=== PATIENT | female | born 1995 | race Caucasian/White ===

== ENCOUNTER 2018-05-27 12:04 | Emergency (ER) | payer BC, SELFPAY ==
[2018-05-27 12:35] VITALS: BP 100/70; PULSE 86; RESP 16; TEMP 36.5; O2SAT 98; BMI 21.4
[2018-05-27 13:50] LABS: Add Manual Diff / Slide Review NO; Basophils Absolute Auto 100 /uL (0-100); Basophils Percent Auto 1.2 % (0-2); Eosinophils Absolute Auto 0 /uL (0-450); Eosinophils Percent Auto 0.7 % (2-4); Hematocrit 50.6 % (36-46); Hemoglobin 16.8 g/dL (12.0-16.0); Lymphocytes Absolute Auto 700 /uL (1100-4500); Lymphocytes Percent Auto 12.6 % (25-40); Mean Corpuscular HGB Conc 33.3 % (30-36); Mean Corpuscular Volume 87.2 fL (80-100); Monocytes Absolute Auto 400 /uL (0-900); Monocytes Percent Auto 6.9 % (3-14); Neutrophils Absolute Auto 4100 /uL (1500-7000); Neutrophils Percent Auto 78.6 % (50-75); Platelet Count 160 X10^3/uL (150-400); Red Cell Distribution Width 15.2 % (11.6-14.8); White Blood Cell Count 5.3 X10^3/uL (4.5-11.0)
[2018-05-27 13:52] VITALS: BP 99/67; PULSE 81; RESP 14; O2SAT 98
[2018-05-27] MEDS: SODIUM CHLORIDE 0.9% 1,000 ML 1000 ML IV (13:59)
[2018-05-27 14:00] VITALS: BP 98/78; PULSE 67; RESP 15; O2SAT 99
[2018-05-27 14:08] LABS: BUN Creatinine Ratio 13.3 (6-22); Blood Urea Nitrogen 12 mg/dL (7-17); Calcium 9.7 mg/dL (8.4-10.2); Carbon Dioxide 18 mmol/L (22-32); Chloride 102 mmol/L (98-107); Estimated Glomerular Filt Rate > 60.0 mL/min (>60); Glucose 82 mg/dL (70-100); HEMOLYSIS 23 (0-50); Potassium 3.7 mmol/L (3.4-5.1); Sodium 141 mmol/L (137-145)
[2018-05-27 15:00] VITALS: BP 115/71; PULSE 67; RESP 13; O2SAT 100
[2018-05-27 15:26] LABS: Appearance Urine UA SL CLOUDY; Bilirubin Urine UA 1+ (NEGATIVE); Color Urine UA YELLOW; Glucose Urine UA TRACE g/dL (Negative); Ketones Urine UA 3+ (NEGATIVE); Leukocyte Esterase Urine UA NEGATIVE (NEGATIVE); Nitrite Urine UA NEGATIVE (Negative); Occult Blood Urine UA 3+ (Negative); Protein Urine UA 1+ (Negative); Specific Gravity Urine UA 1.025 (1.000-1.035)
[2018-05-27 15:30] VITALS: BP 108/80; PULSE 74; RESP 12; O2SAT 99
[2018-05-27 15:48] LABS: Ictotest Urine Negative (Negative)
[2018-05-27 15:49] LABS: Bacteria Urine Many (>30); Calcium Oxalate Crystals Urine Few; Culture Indicated Urine Cult Not Indicated; Mucus Urine 2+ (Negative); RBC Urine 1-5/HPF (0-5/HPF); Squamous Epithelial Cell Urine 5-10 /HPF; WBC Urine 1-5/HPF (0-5/HPF)
[2018-05-27 16:00] VITALS: BP 109/71; PULSE 83; RESP 15; O2SAT 99
--- NOTE | 2018-06-01 04:43 | ED.DIZZY ---
HPI - Dizziness General Chief Complaint: Syncope Stated Complaint: nausea,passed out Time Seen by Provider: 05/27/18 12:53 Source: patient and family Mode of arrival: ambulatory Limitations: no limitations History of Present Illness HPI Narrative: Patient presents emergency department complaining of fatigue and dizziness for the last few days. Patient has been having ongoing issues with abdominal pain and nausea in relation to eating, and has come to the point where she only eats a couple spoonfuls of peanut butter every day. Patient states that it is usually foods with fat in them that make her feel unwell, but that somehow peanut butter seems to be the only thing she can tolerate. Patient has been seen by GI specialist and has had endoscopies done which have been negative. She is scheduled for an ultrasound of the right upper quadrant in a few days. Patient denies any abdominal pain right at the moment. She denies any vomiting or diarrhea. No chest pain or shortness of breath. No recent illness of any other kind. No fevers. No dysuria. No back pain. Patient has not actually fainted, but has sometimes felt faint when she stands up. Patient does not have a history of eating disorder, though her stepfather does tell me privately that the patient has been under lot of stress, and he is concerned about how this is impacting her eating. He states that the patient has been resistant to the interventions of her mother and himself in terms of trying to get her to eat more food. Related Data Allergies Allergy/AdvReac Type Severity Reaction Status Date / Time No Known Drug Allergies Allergy Verified 05/27/18 12:42 Review of Systems Constitutional Reports anorexia, Denies chills, Reports fatigue, Denies fever(s), Denies lethargy, Reports poor appetite, Denies weakness and Reports weight loss Eyes Denies change in vision, Denies eye discharge, Denies irritation and Denies loss of vision ENT Ears, Nose, Mouth, and Throat: Denies change in voice, Denies neck pain and Denies sore throat Cardiovascular Denies chest pain, Denies irregular heart rhythm, Reports lightheadedness, Denies palpitations, Denies dyspnea, Denies dyspnea on exertion and Denies orthopnea Respiratory Denies cough, Denies dyspnea, Denies dyspnea on exertion and Denies wheezing Gastrointestinal Gastrointestinal: Denies abdominal pain, Denies change in bowel habits, Denies diarrhea, Denies nausea and Denies vomiting Genitourinary Denies hematuria, Denies flank pain, Denies urinary incontinence and Denies urinary urgency Musculoskeletal Denies neck pain Integumentary/Breasts Denies pruritus, Denies erythema, Denies rash and Denies wounds Neurologic Denies confusion, Denies loss of vision and Denies weakness Psychiatric Denies anxiety, Denies confusion, Denies depression, Denies homicidal ideation and Denies suicidal ideation Endocrine Reports fatigue and Denies palpitations Hematologic/Lymphatic Denies easy bruising Allergic/Immunologic Denies wheezing [facility] Medical History Healthy adult (Acute) Surgical History No pertinent past surgical history (Acute) Social History Smoking Status: Never smoker Social History Smoking Status: Never smoker Exam Initial Vital Signs Initial Vital Signs: Vital Signs Temperature 97.7 F 05/27/18 12:35 Pulse Rate 86 05/27/18 12:35 Respiratory Rate 16 05/27/18 12:35 Blood Pressure 100/70 05/27/18 12:35 Pulse Oximetry 98 05/27/18 12:35 Const General: cooperative and well developed Nutritional Appearance: well nourished Orientation: alert, awake, oriented x3 and not confused [facility] Head: normocephalic and atraumatic Ears: external ears normal Nose: external nose normal and No nasal discharge Face and sinus: face symmetric and No dry mucous membranes Mouth: oral mucosae normal and moist mucous membranes Teeth and gingiva: dentition normal Eyes General: appearance normal, both eyes and all related structures Eyelids: eyelids normal Conjunctivae: conjunctivae normal Sclera: sclerae normal Pupils: PERRL EOM: EOM intact bilaterally Neck Neck: normal visual inspection, trachea midline, No lymphadenopathy, No midline deformity and No JVD Lymphatic: No lymphedema Chest Chest: normal inspection of the chest Resp Effort & Inspection: normal respiratory effort, able to speak in complete sentences, no respiratory distress and no use of accessory muscles Auscultation: clear to auscultation bilaterally, no rales, no rhonchi and no wheezes Cardio Rate: regular rate Rhythm: regular rhythm Heart Sounds: no click, no gallops, no murmurs and no rubs Pulses: normal peripheral pulses GI Inspection: non-distended Palpation: soft, no hepatosplenomegaly, No guarding, No pulsatile mass and No tender Auscultation: normal bowel sounds Back/Spine/Pelvis Back: No CVA tenderness Cervical Spine: cervical ROM normal and No pain with cervical ROM Thoracic/Lumbar Spine: thoracic and lumbar spine normal to inspection Skin General: no rashes or lesions noted, No jaundice and No petechiae Neuro General: alert, oriented x3, gait normal and no focal motor deficits Speech: speech normal Extrem General: full ROM, no clubbing, cyanosis or edema, no pedal edema and no calf tenderness Psych Appearance: well kempt Mental Status: mental status grossly normal Attitude: cooperative Thought Content: normal and suicidality Judgment: judgment good Course Course Narrative: Patient was worked up with labs, which were unremarkable. I did not find indication to call the artificial breeding technician in to do her right upper quadrant ultrasound emergently, as the patient was not complaining of pain and was not tender, and did not have elevated LFTs. I discussed with the patient that additionally, the tolerance of the very high fat peanut butter does not go along with an intolerance of fatty food secondary to a potential cholelithiasis. The patient certainly should continue her plans to have the ultrasound done in a few days, but it does not need to be emergently done today. I have expressed my concern to the patient and her family that the patient is exhibiting signs of an eating disorder, and that I feel this is an issue that should be addressed alongside the abdominal complaints. I have given the family and patient resources for follow-up for this, in particular, the [facility] in [place], as well as another eating disorder center in [place] that deals specifically with restrictive eating, which goes along with patient's symptoms. I have also given them the National Eating Disorder hotline. Stepfather has spoken to me privately that he believes the patient will be willing to follow up. I have discussed with the patient the importance of eating a more well rounded diet. The patient really has not tried fruits and vegetables, and expresses distaste the idea of eating them. However, I have discussed with her that it is important to at least eat some fruits and vegetables that she find more palatable so that she gets more nutritional input into her diet. Orders Ordered: Discontinued Medications Sodium Chloride (Normal Saline 0.9%) 1,000 mls @ 1,000 mls/hr IV BOLUS ONE Stop: 05/27/18 14:20 Last Infusion: 05/27/18 15:56 Dose: 0 mls/hr Admin: 05/27/18 13:59 Dose: 1,000 mls/hr MDM - Dizziness Medical Records Attestation: I reviewed the patient's medical records. Lab Data Attestation: I reviewed the patient's lab results. Result diagrams: 05/27/18 13:40 05/27/18 13:40 Lab Results 05/27/18 05/27/18 05/27/18 Range/Units 13:40 13:40 15:20 WBC 5.3 (4.5-11.0) X10^3/uL RBC 5.80 H (4.0-5.2) X10^6/uL Hgb 16.8 H (12.0-16.0) g/dL Hct 50.6 H (36-46) % MCV 87.2 (80-100) fL MCH 29.0 (26-34) PG MCHC 33.3 (30-36) % RDW 15.2 H (11.6-14.8) % Plt Count 160 (150-400) X10^3/uL Neut % (Auto) 78.6 H (50-75) % Lymph % (Auto) 12.6 L (25-40) % [place] % (Auto) 6.9 (3-14) % Eos % (Auto) 0.7 L (2-4) % Baso % (Auto) 1.2 (0-2) % Neut # (Auto) 4100 (0541-8538) /uL Lymph # (Auto) 700 L (9281-0269) /uL [place] # (Auto) 400 (0-900) /uL Eos # (Auto) 0 (0-450) /uL Baso # (Auto) 100 (0-100) /uL Sodium 141 (137-145) mmol/L Potassium 3.7 (3.4-5.1) mmol/L Chloride 102 (98-107) mmol/L Carbon Dioxide 18 L (22-32) mmol/L BUN 12 (7-17) mg/dL Creatinine 0.90 (0.52-1.04) mg/dL Estimated GFR > 60.0 (>60) mL/min BUN/Creatinine Ratio 13.3 (6-22) Glucose 82 (70-100) mg/dL Calcium 9.7 (8.4-10.2) mg/dL Urine Color Yellow Urine Appearance Sl cloudy Urine pH 6.0 (4.5-8.0) Ur Specific [place] 1.025 (1.000-1.035) Urine Protein 1+ H (Negative) Urine Glucose (UA) Trace H (Negative) g/dL Urine Ketones 3+ H (NEGATIVE) Urine Occult Blood 3+ H (Negative) Urine Nitrate Negative (Negative) Urine Bilirubin 1+ H (NEGATIVE) Urine Ictotest Negative (Negative) Urine Urobilinogen 1.0 (0.2) E.U./dL Ur Leukocyte Esterase Negative (NEGATIVE) Urine RBC 1-5/hpf (0-5/HPF) Urine WBC 1-5/hpf (0-5/HPF) Ur Squamous Epith Cells 5-10 /hpf H Calcium Oxalate Crystal Few H (None) Urine Bacteria Many (>30) H (None) Urine Mucus 2+ H (Negative) Ur Culture Indicated? Cult not indicated Point of Care Testing Test Results Negative Discharge Plan Departure Patient Disposition: Home Clinical Impression: Avoidant-restrictive food intake disorder (ARFID) Abdominal pain Qualifiers: Abdominal location: right upper quadrant Qualified Code(s): R10.11 - Right upper quadrant pain Discharge Date/Time: 05/27/18 16:13 Interventions: ED Discharge Assessment Last Done: 05/27/18 16:10 Instructions: A Family's Guide to Tackling Eating Disorders, Eating Disorders (Alternative Therapy), DI for Abdominal Pain-Adult Activity Restrictions/Additional Instructions: All of your labs look good. Here are a few options for follow-up on the eating restrictions and potential stress-related effects on your digestive system: [facility] ([place]) [facility] ([place]) National Eating Disorder Hotline Referrals: Liya Doherty [Primary Care Provider] -
--- NOTE | 2018-06-01 04:52 | ED_ITS ---
HPI - Dizziness General Chief Complaint: Syncope Stated Complaint: nausea,passed out Time Seen by Provider: 05/27/18 12:53 Source: patient and family Mode of arrival: ambulatory Limitations: no limitations History of Present Illness HPI Narrative: Patient presents emergency department complaining of fatigue and dizziness for the last few days. Patient has been having ongoing issues with abdominal pain and nausea in relation to eating, and has come to the point where she only eats a couple spoonfuls of peanut butter every day. Patient states that it is usually foods with fat in them that make her feel unwell, but that somehow peanut butter seems to be the only thing she can tolerate. Patient has been seen by GI specialist and has had endoscopies done which have been negative. She is scheduled for an ultrasound of the right upper quadrant in a few days. Patient denies any abdominal pain right at the moment. She denies any vomiting or diarrhea. No chest pain or shortness of breath. No recent illness of any other kind. No fevers. No dysuria. No back pain. Patient has not actually fainted, but has sometimes felt faint when she stands up. Patient does not have a history of eating disorder, though her stepfather does tell me privately that the patient has been under lot of stress, and he is concerned about how this is impacting her eating. He states that the patient has been resistant to the interventions of her mother and himself in terms of trying to get her to eat more food. Related Data Allergies Allergy/AdvReac Type Severity Reaction Status Date / Time No Known Drug Allergies Allergy Verified 05/27/18 12:42 Review of Systems Constitutional Reports anorexia, Denies chills, Reports fatigue, Denies fever(s), Denies lethargy, Reports poor appetite, Denies weakness and Reports weight loss Eyes Denies change in vision, Denies eye discharge, Denies irritation and Denies loss of vision ENT Ears, Nose, Mouth, and Throat: Denies change in voice, Denies neck pain and Denies sore throat Cardiovascular Denies chest pain, Denies irregular heart rhythm, Reports lightheadedness, Denies palpitations, Denies dyspnea, Denies dyspnea on exertion and Denies orthopnea Respiratory Denies cough, Denies dyspnea, Denies dyspnea on exertion and Denies wheezing Gastrointestinal Gastrointestinal: Denies abdominal pain, Denies change in bowel habits, Denies diarrhea, Denies nausea and Denies vomiting Genitourinary Denies hematuria, Denies flank pain, Denies urinary incontinence and Denies urinary urgency Musculoskeletal Denies neck pain Integumentary/Breasts Denies pruritus, Denies erythema, Denies rash and Denies wounds Neurologic Denies confusion, Denies loss of vision and Denies weakness Psychiatric Denies anxiety, Denies confusion, Denies depression, Denies homicidal ideation and Denies suicidal ideation Endocrine Reports fatigue and Denies palpitations Hematologic/Lymphatic Denies easy bruising Allergic/Immunologic Denies wheezing [facility] Medical History Healthy adult (Acute) Surgical History No pertinent past surgical history (Acute) Social History Smoking Status: Never smoker Social History Smoking Status: Never smoker Exam Initial Vital Signs Initial Vital Signs: Vital Signs Temperature 97.7 F 05/27/18 12:35 Pulse Rate 86 05/27/18 12:35 Respiratory Rate 16 05/27/18 12:35 Blood Pressure 100/70 05/27/18 12:35 Pulse Oximetry 98 05/27/18 12:35 Const General: cooperative and well developed Nutritional Appearance: well nourished Orientation: alert, awake, oriented x3 and not confused [facility] Head: normocephalic and atraumatic Ears: external ears normal Nose: external nose normal and No nasal discharge Face and sinus: face symmetric and No dry mucous membranes Mouth: oral mucosae normal and moist mucous membranes Teeth and gingiva: dentition normal Eyes General: appearance normal, both eyes and all related structures Eyelids: eyelids normal Conjunctivae: conjunctivae normal Sclera: sclerae normal Pupils: PERRL EOM: EOM intact bilaterally Neck Neck: normal visual inspection, trachea midline, No lymphadenopathy, No midline deformity and No JVD Lymphatic: No lymphedema Chest Chest: normal inspection of the chest Resp Effort & Inspection: normal respiratory effort, able to speak in complete sentences, no respiratory distress and no use of accessory muscles Auscultation: clear to auscultation bilaterally, no rales, no rhonchi and no wheezes Cardio Rate: regular rate Rhythm: regular rhythm Heart Sounds: no click, no gallops, no murmurs and no rubs Pulses: normal peripheral pulses GI Inspection: non-distended Palpation: soft, no hepatosplenomegaly, No guarding, No pulsatile mass and No tender Auscultation: normal bowel sounds Back/Spine/Pelvis Back: No CVA tenderness Cervical Spine: cervical ROM normal and No pain with cervical ROM Thoracic/Lumbar Spine: thoracic and lumbar spine normal to inspection Skin General: no rashes or lesions noted, No jaundice and No petechiae Neuro General: alert, oriented x3, gait normal and no focal motor deficits Speech: speech normal Extrem General: full ROM, no clubbing, cyanosis or edema, no pedal edema and no calf tenderness Psych Appearance: well kempt Mental Status: mental status grossly normal Attitude: cooperative Thought Content: normal and suicidality Judgment: judgment good Course Course Narrative: Patient was worked up with labs, which were unremarkable. I did not find indication to call the injection maintenance technician in to do her right upper quadrant ultrasound emergently, as the patient was not complaining of pain and was not tender, and did not have elevated LFTs. I discussed with the patient that additionally, the tolerance of the very high fat peanut butter does not go along with an intolerance of fatty food secondary to a potential cholelithiasis. The patient certainly should continue her plans to have the ultrasound done in a few days, but it does not need to be emergently done today. I have expressed my concern to the patient and her family that the patient is exhibiting signs of an eating disorder, and that I feel this is an issue that should be addressed alongside the abdominal complaints. I have given the family and patient resources for follow-up for this, in particular, the [facility] in [place], as well as another eating disorder center in [place] that deals specifically with restrictive eating, which goes along with patient's symptoms. I have also given them the National Eating Disorder hotline. Stepfather has spoken to me privately that he believes the patient will be willing to follow up. I have discussed with the patient the importance of eating a more well rounded diet. The patient really has not tried fruits and vegetables, and expresses distaste the idea of eating them. However, I have discussed with her that it is important to at least eat some fruits and vegetables that she find more palatable so that she gets more nutritional input into her diet. Orders Ordered: Discontinued Medications Sodium Chloride (Normal Saline 0.9%) 1,000 mls @ 1,000 mls/hr IV BOLUS ONE Stop: 05/27/18 14:20 Last Infusion: 05/27/18 15:56 Dose: 0 mls/hr Admin: 05/27/18 13:59 Dose: 1,000 mls/hr MDM - Dizziness Medical Records Attestation: I reviewed the patient's medical records. Lab Data Attestation: I reviewed the patient's lab results. Result diagrams: 05/27/18 13:40 05/27/18 13:40 Lab Results 05/27/18 05/27/18 05/27/18 Range/Units 13:40 13:40 15:20 WBC 5.3 (4.5-11.0) X10^3/uL RBC 5.80 H (4.0-5.2) X10^6/uL Hgb 16.8 H (12.0-16.0) g/dL Hct 50.6 H (36-46) % MCV 87.2 (80-100) fL MCH 29.0 (26-34) PG MCHC 33.3 (30-36) % RDW 15.2 H (11.6-14.8) % Plt Count 160 (150-400) X10^3/uL Neut % (Auto) 78.6 H (50-75) % Lymph % (Auto) 12.6 L (25-40) % [place] % (Auto) 6.9 (3-14) % Eos % (Auto) 0.7 L (2-4) % Baso % (Auto) 1.2 (0-2) % Neut # (Auto) 4100 (1359-2777) /uL Lymph # (Auto) 700 L (4675-0703) /uL [place] # (Auto) 400 (0-900) /uL Eos # (Auto) 0 (0-450) /uL Baso # (Auto) 100 (0-100) /uL Sodium 141 (137-145) mmol/L Potassium 3.7 (3.4-5.1) mmol/L Chloride 102 (98-107) mmol/L Carbon Dioxide 18 L (22-32) mmol/L BUN 12 (7-17) mg/dL Creatinine 0.90 (0.52-1.04) mg/dL Estimated GFR > 60.0 (>60) mL/min BUN/Creatinine Ratio 13.3 (6-22) Glucose 82 (70-100) mg/dL Calcium 9.7 (8.4-10.2) mg/dL Urine Color Yellow Urine Appearance Sl cloudy Urine pH 6.0 (4.5-8.0) Ur Specific [place] 1.025 (1.000-1.035) Urine Protein 1+ H (Negative) Urine Glucose (UA) Trace H (Negative) g/dL Urine Ketones 3+ H (NEGATIVE) Urine Occult Blood 3+ H (Negative) Urine Nitrate Negative (Negative) Urine Bilirubin 1+ H (NEGATIVE) Urine Ictotest Negative (Negative) Urine Urobilinogen 1.0 (0.2) E.U./dL Ur Leukocyte Esterase Negative (NEGATIVE) Urine RBC 1-5/hpf (0-5/HPF) Urine WBC 1-5/hpf (0-5/HPF) Ur Squamous Epith Cells 5-10 /hpf H Calcium Oxalate Crystal Few H (None) Urine Bacteria Many (>30) H (None) Urine Mucus 2+ H (Negative) Ur Culture Indicated? Cult not indicated Point of Care Testing Test Results Negative Discharge Plan Departure Patient Disposition: Home Clinical Impression: Avoidant-restrictive food intake disorder (ARFID) Abdominal pain Qualifiers: Abdominal location: right upper quadrant Qualified Code(s): R10.11 - Right upper quadrant pain Discharge Date/Time: 05/27/18 16:13 Interventions: ED Discharge Assessment Last Done: 05/27/18 16:10 Instructions: A Family's Guide to Tackling Eating Disorders, Eating Disorders (Alternative Therapy), DI for Abdominal Pain-Adult Activity Restrictions/Additional Instructions: All of your labs look good. Here are a few options for follow-up on the eating restrictions and potential stress-related effects on your digestive system: [facility] ([place]) [facility] ([place]) National Eating Disorder Hotline Referrals: Liya Doherty [Primary Care Provider] -
== END 2018-05-27 16:13 | disposition home or self-care (01) ==
PROVIDERS: Emergency Provider Emergency Medicine; PCP Physician Assistant Medical
DX: R10.11 Right upper quadrant pain (principal); F50.82 Avoidant/restrictive food intake disorder
CPT/HCPCS: 36591; 80048; 81001; 81025; 85025; 93005; 96360; 96361; 99283

== ENCOUNTER → 2019-07-04 12:11 | Outpatient (CLI) | payer BC, SELFPAY ==
--- NOTE | 2019-07-04 12:13 | DI.US.S_ITS ---
PROCEDURE: US OB <= 14 WEEKS FETUS INDICATIONS: INITAL ULTRASOUND FOR DATING AND VIABILITY OUTSIDE/PRIOR DATING DATA: Last menstrual period (LMP): 04/18/19. LMP-based estimated date of delivery (SANDI): 01/23/20. First dating scan (date and location): 07/04/19. Estimated date of delivery (SANDI) from first dating scan: 02/20/20. TECHNIQUE: Real-time scanning was performed of the fetus and maternal pelvic organs, with image documentation. COMPARISON: None. FINDINGS: Embryo: A single live intrauterine is seen. The measured heart rate is 145 beats per minute. The crown-rump length measures 0.9 cm, corresponding to an estimated gestational age of 7 weeks 0 days. It is too early for detailed anatomic assessment. By visual inspection, the amount of amniotic fluid is within normal limits. No significant findings of subchorionic/perigestational hemorrhage are seen. Measurement variability in dating: +/- 4 weeks by LMP, +/- 7 days by mean sac diameter (use before 6 weeks gestation if crown-rump length not able to be measured), +/- 5 days by crown-rump length (up to 8 weeks 6 days gestation), +/- 7 days by crown-rump length (up to 13 weeks 6 days gestation). Maternal organs: Ovaries are not seen. Limited images through the kidneys demonstrate no hydronephrosis. IMPRESSION: A single live intrauterine is seen. There is a 1 month discrepancy between the estimated gestational age based on these images and estimated gestational age based upon the given date of the last menstrual period. Please correlate with precise clinical dating. Dictated by: Virgil Jones M.D. on 07/04/2019 at 13:09 Approved by: Virgil Jones M.D. on 07/04/2019 at 13:12
== END ==
PROVIDERS: PCP Physician Assistant Medical; Referring Provider Family Medicine; Visit Provider Family Medicine
DX: Z34.01 Encounter for supervision of normal first pregnancy, first trimester (principal); Z3A.01 Less than 8 weeks gestation of pregnancy
CPT/HCPCS: 76801

== ENCOUNTER → 2019-07-09 10:41 | Outpatient (CLI) | payer BC, SELFPAY ==
[2019-07-09 11:55] LABS: Add Manual Diff / Slide Review NO; Basophils Absolute Auto 0 /uL (0-100); Basophils Percent Auto 0.6 % (0-2); Eosinophils Absolute Auto 0 /uL (0-450); Eosinophils Percent Auto 0.6 % (2-4); Hematocrit 42.4 % (36-46); Hemoglobin 14.4 g/dL (12.0-16.0); Lymphocytes Absolute Auto 1300 /uL (1100-4500); Lymphocytes Percent Auto 18.3 % (25-40); Mean Corpuscular Hemoglobin 30.1 PG (26-34); Mean Corpuscular Volume 88.5 fL (80-100); Monocytes Absolute Auto 500 /uL (0-900); Monocytes Percent Auto 7.4 % (3-14); Neutrophils Absolute Auto 5200 /uL (1500-7000); Neutrophils Percent Auto 73.1 % (50-75); Platelet Count 202 X10^3/uL (150-400); Red Blood Cell Count 4.79 X10^6/uL (4.0-5.2); Red Cell Distribution Width 13.9 % (11.6-14.8); White Blood Cell Count 7.2 X10^3/uL (4.5-11.0)
[2019-07-09 12:08] LABS: Appearance Urine UA CLEAR; Bilirubin Urine UA NEGATIVE (NEGATIVE); Color Urine UA YELLOW; Glucose Urine UA NEGATIVE (Negative); Ketones Urine UA NEGATIVE (NEGATIVE); Leukocyte Esterase Urine UA NEGATIVE (NEGATIVE); Nitrite Urine UA NEGATIVE (Negative); Occult Blood Urine UA NEGATIVE (Negative); Protein Urine UA NEGATIVE (Negative); Urobilinogen Urine UA 0.2 E.U./dL (0.2)
[2019-07-09 12:16] LABS: pH Urine UA 6.5 (4.5-8.0)
[2019-07-09 14:13] LABS: Hepatitis B Surface Antigen NEGATIVE s/c (NEGATIVE); Rubella Antibody IgG 9.5 IU/mL (>15)
[2019-07-09 14:30] LABS: HIV 1 & 2 Ab/Ag 4th Gen Combo NEGATIVE (NEGATIVE); Hep C Virus Ab w/Reflex Quant NEGATIVE s/c (NEGATIVE)
[2019-07-10 03:36] LABS: RPR Screen Non Reactive (Non Reactive)
[2019-07-10 10:26] LABS: Varicella IgG Antibody 225 index (Immune >165)
== END ==
PROVIDERS: PCP Physician Assistant Medical; Referring Provider Family Medicine; Visit Provider Family Medicine
DX: Z34.01 Encounter for supervision of normal first pregnancy, first trimester (principal)
CPT/HCPCS: 36415; 80055; 81003; 86787; 86803; 86850; 86900; 86901; 87086; 87389

== ENCOUNTER → 2019-08-05 11:08 | Outpatient (CLI) | payer BC, SELFPAY ==
[2019-08-05 14:59] LABS: Urine N gonorrhoeae NOT DETECTED
[2019-08-05 15:28] LABS: Urine Chlamydia NOT DETECTED
== END ==
PROVIDERS: PCP Physician Assistant Medical; Visit Provider Family Medicine
DX: Z34.90 Encounter for supervision of normal pregnancy, unspecified, unspecified trimester (principal); Z11.3 Encounter for screening for infections with a predominantly sexual mode of transmission; Z11.8 Encounter for screening for other infectious and parasitic diseases
CPT/HCPCS: 87491; 87591

== ENCOUNTER → 2019-10-03 14:07 | Outpatient (CLI) | payer BC, SELFPAY ==
--- NOTE | 2019-10-03 14:07 | DI.US.S_ITS ---
PROCEDURE: US OB >= 14 WEEKS FETUS INDICATIONS: ANATOMY OUTSIDE/PRIOR DATING DATA: Last menstrual period (LMP): 04/18/19. LMP-based estimated date of delivery (SANDI): 01/23/20 . First dating scan (date and location): 07/04/19 . Estimated date of delivery (SANDI) from first dating scan: 02/20/20 . TECHNIQUE: Real-time scanning was performed of the fetus, with image documentation and biometric measurements. Endovaginal scanning: Not needed COMPARISON: Prior OB ultrasound studies 07/04/19. FINDINGS: General: A single living intrauterine gestation is present. Presentation: Oblique, mobile. Placenta: Placental position is anterior , with marginal previa. Amniotic fluid index: 17.0 cm, normal range is 5-24 cm. heart rate: 155 beats per minute. Maternal cervical canal: 4.9 cm long. Normal lower limit is 2.5 cm. biometrics: Biparietal diameter: 4.9 cm, 20 weeks 6 days Head circumference: 18.3 cm, 20 weeks 5 days Abdominal circumference: 15.8 cm, 20 weeks 6 days Femur length: 3.5 cm, 21 weeks 1 day Estimated gestational age from initial scan: 20 weeks 0 days Composite gestational age from present scan: 20 weeks 6 days Estimated weight and percentile: 389 g, 90 second percentile Measurement variability for biometric dating: +/- 7 days from 14 weeks to 15 weeks 6 days gestation, +/- 10 days from 16 weeks to 21 weeks 6 days gestation, +/- 2 weeks from 22 weeks to 27 weeks 6 days gestation, +/- 3 weeks for 28 weeks gestation or later. weight reference: 4500 g or EFW >90/95% is considered macrosomia or large for gestational age. EFW <10% is small for gestational age. EFW 5% or less is considered intra-uterine growth restriction. Anatomic survey: Neuro: Ventricles are non-dilated at less than 10 mm. Cisterna magna is normal at 3-11 mm. Cerebellum is normal in size and morphology. Nuchal skin fold: Normal at less than 6 mm between 14-21 weeks gestational age. Face: Nose and lips, facial profile are normal. Spine: No evidence for spina bifida. Heart: 4-chambered heart is present, with normal ventricular outflow tracts. Diaphragm: Diaphragm is intact. Stomach: Left-sided stomach is present. Kidneys: No hydronephrosis. Normal is less than 5 mm in 2nd trimester, less than 7 mm in 3rd trimester. Cord: 3-vessel cord has orthotopic insertion. Bladder: Normal in size. Extremities: All 4 extremities identified. IMPRESSION: Single living intrauterine gestation, note is made of marginal previa anteriorly, no anomaly found. Dictated by: Sotero Nesbitt M.D. on 10/03/2019 at 15:29 Approved by: Sotero Nesbitt M.D. on 10/03/2019 at 15:37
== END ==
PROVIDERS: PCP Physician Assistant Medical; Referring Provider Physician Assistant Medical; Visit Provider Family Medicine
DX: Z36.89 Encounter for other specified antenatal screening (principal); Z3A.20 20 weeks gestation of pregnancy
CPT/HCPCS: 76811

== ENCOUNTER → 2019-11-12 17:05 | Outpatient (CLI) | payer BC, SELFPAY ==
--- NOTE | 2019-11-12 17:08 | DI.US.S_ITS ---
PROCEDURE: US OB LIMITED INDICATIONS: CHECK MARGINAL PLACENTA AND GROWTH OUTSIDE/PRIOR DATING DATA: Last menstrual period (LMP): 04/18/19 . LMP-based estimated date of delivery (SANDI): 02/02/20 First dating scan (date and location): 07/04/19 Estimated date of delivery (SANDI) from first dating scan: 02/20/20 TECHNIQUE: Real-time scanning was performed of the fetus, with image documentation. Endovaginal scanning: Not needed COMPARISON: [facility], OB >= 14 WEEKS FETUS, 10/03/2019, 14:12. FINDINGS: A single living intrauterine gestation is present. Presentation: Vertex Placenta: Placental position is anterior,, without previa with the inferior placental edge 7 cm above the internal os of the cervical canal. Amniotic fluid index: 21.3 cm, normal range is 5-24 cm. heart rate: 141 beats per minute. Maternal cervical canal: 4.1 cm long. Normal lower limit is 2.5 cm. Estimated gestational age from initial scan: 25 weeks 5 days . biometry was evaluated, with BPD 6.8 cm, 27 weeks 3 days. Head circumference 24.7 cm, 26 weeks 6 days. Abdominal circumference 23.2 cm, 27 weeks 4 days. Femur length 5.1 cm, 27 weeks 1 day. The composite gestational age from today is 27 weeks 2 days. The estimated weight is 1060 g, at the upper 95th percentile. IMPRESSION: Interval growth with elongation of the uterus results in resolution of concern for presence of marginal placenta previa with the anterior position placenta tip now 7 cm above the internal os of the cervical canal. The growth has been greater than generally seen with the current estimated gestational age at 27 weeks 2 days but the initial (more accurate) projected gestational age is 25 weeks 5 days. This discrepancy does not reach the measurement variability of +/-3 weeks for the current estimation, but the estimated weight is at the upper 95th percentile currently. This raises concern for macrosomia and further assessment in the near term is recommended by additional OB ultrasound in 2 weeks to assess for progression of this finding. Please also correlate clinically for potential etiology of accelerated growth. Dictated by: Sotero Nesbitt M.D. on 11/13/2019 at 8:14 Approved by: Sotero Nesbitt M.D. on 11/13/2019 at 8:24
== END ==
PROVIDERS: PCP Physician Assistant Medical; Referring Provider Family Medicine; Visit Provider Family Medicine
DX: O44.22 Partial placenta previa NOS or without hemorrhage, second trimester; Z3A.27 27 weeks gestation of pregnancy
CPT/HCPCS: 76815

== ENCOUNTER → 2019-11-13 13:21 | Outpatient (CLI) | payer BC, SELFPAY ==
[2019-11-13 15:23] LABS: Hematocrit 33.5 % (36-46); Hemoglobin 11.3 g/dL (12.0-16.0)
[2019-11-13 16:00] LABS: GTT (PREG) 1 Hour PP 50gm Dose 126 mg/dL (76-139)
== END ==
PROVIDERS: PCP Physician Assistant Medical; Referring Provider Family Medicine; Visit Provider Family Medicine
DX: Z3A.26 26 weeks gestation of pregnancy (principal)
CPT/HCPCS: 36415; 82950; 85014; 85018

== ENCOUNTER → 2019-12-03 16:08 | Outpatient (CLI) | payer BC, SELFPAY ==
--- NOTE | 2019-12-03 16:10 | DI.US.S_ITS ---
PROCEDURE: US OB LIMITED INDICATIONS: follow up growth OUTSIDE/PRIOR DATING DATA: Last menstrual period (LMP): 04/18/19. LMP-based estimated date of delivery (SANDI): 02/02/20 First dating scan (date and location): 07/04/19 Estimated date of delivery (SANDI) from first dating scan: 02/20/20 TECHNIQUE: Real-time scanning was performed of the fetus, with image documentation and biometric measurements. Endovaginal scanning: Not needed COMPARISON: [facility], OB LIMITED, 11/12/2019, 17:34. FINDINGS: General: A single living intrauterine gestation is present. Presentation: Vertex. Placenta: Placental position is anterior , without previa. Amniotic fluid index: 14.7 cm, normal range is 5-24 cm. heart rate: 139 beats per minute. Maternal cervical canal: 4.8 cm long. Normal lower limit is 2.5 cm. biometrics: Biparietal diameter: 8.2 cm, 32 weeks 6 days Head circumference: 28.8 cm, 31 weeks 4 days Abdominal circumference: 25.6 cm, 29 weeks 5 days Femur length: 6.5 cm, 33 weeks 4 days Estimated gestational age from initial scan: 28 weeks 5 days (most accurate) Composite gestational age from present scan: 32 weeks 0 days (abnormal) Estimated weight and percentile: 1762 g, upper 99th percentile (macrosomia) Measurement variability for biometric dating: +/- 7 days from 14 weeks to 15 weeks 6 days gestation, +/- 10 days from 16 weeks to 21 weeks 6 days gestation, +/- 2 weeks from 22 weeks to 27 weeks 6 days gestation, +/- 3 weeks for 28 weeks gestation or later. weight reference: 4500 g or EFW >90/95% is considered macrosomia or large for gestational age. EFW <10% is small for gestational age. EFW 5% or less is considered intra-uterine growth restriction. Other: The findings of macrosomia at the current accurate gestational age of 28 weeks 5 days and the finding of current estimated weight of the upper 99th percentile for current accurate gestational age places the fetus at significant risk. IMPRESSION: Macrosomia, accelerated growth continues. The current estimated weight for most accurate gestational age is now at the upper 99th percentile. This information was immediately called to the office of the ordering healthcare provider, Dr. Marci, who was not available today. Her charge nurse was then contacted personally, Laura Webb, and the findings were discussed in detail including risk to the fetus and patient, and need for Dr. Covarrubias to be informed of these findings as soon as possible. She reports that the physician will return to the office tomorrow morning and will be presented with this report. Vertex presentation, anterior placenta. Amniotic fluid volume is normal. Dictated by: Sotero Nesbitt M.D. on 12/04/2019 at 9:46 Approved by: Sotero Nesbitt M.D. on 12/04/2019 at 10:24
== END ==
PROVIDERS: PCP Physician Assistant Medical; Referring Provider Family Medicine; Visit Provider Family Medicine
DX: Z36.2 Encounter for other antenatal screening follow-up (principal); O36.63X0 Maternal care for excessive fetal growth, third trimester, not applicable or unspecified; Z3A.28 28 weeks gestation of pregnancy
CPT/HCPCS: 76815

== ENCOUNTER 2019-12-14 10:41 | Outpatient (CLI) | payer BC, SELFPAY ==
--- NOTE | 2019-12-14 10:44 | PM.OBTRLD ---
Visit Information Visit Information Date of evaluation: 12/14/19 Primary OB Provider: Leilani Covarrubias On-call OB Provider: Mei Silva Reason for Evaluation: Yes rupture of membranes Comments/Additional reasons for admission: 24yo at 30w2d who presented with concern for ROM. Reports feeling a gush of fluid around 9am when sitting up in bed. Since then, she continues to feel that her underwear are wet. She has felt intermittent lower abdominal cramping, approximately every 15 minutes, since last night. No vaginal bleeding. She is feeling her baby move regularly. Her has been complicated by LGA fetus, with last growth ultrasound showing EFW > 99th percentile and 1762g at 28w5d. The pts SANDI was based on first trimester ultrasound, which was discordant from her LMP by 3w5d. Based on her LMP dating, the pt is currently 34w1d. The pt also has anxiety and depression, and is on Sertraline to treat this. [facility] Medical History (Updated 12/14/19 @ 11:06 by Mei Silva MD) Anxiety and depression (Acute ~2014) Trauma (Acute) Surgical History H/O wisdom tooth extraction (Acute ~2014) Family History Father No problems noted. Mother Depression Grandfather Congestive heart failure History of open heart surgery Grandmother Congestive heart failure History of open heart surgery Grandfather No problems noted. 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 No evidence of rupture. NST reactive. Discussed signs/symptoms of rupture to be aware of. This was most likely urine leak or vaginal discharge. Discussed hydration and relative rest to help with cramping. No contractions on monitor. OB Disposition: home
== END 2019-12-14 11:40 | disposition home or self-care (01) ==
LOC: OB 12-16 13:29
PROVIDERS: PCP Physician Assistant Medical; Referring Provider Family Medicine; Visit Provider Family Medicine
DX: O47.03 False labor before 37 completed weeks of gestation, third trimester (principal); O36.63X0 Maternal care for excessive fetal growth, third trimester, not applicable or unspecified; N89.8 Other specified noninflammatory disorders of vagina; Z3A.34 34 weeks gestation of pregnancy
CPT/HCPCS: 59025; 84112; G0378; G0379

== ENCOUNTER → 2020-01-24 14:02 | Outpatient (CLI) | payer BC, SELFPAY ==
[2020-01-25 15:23] LABS: Strep Grp B PCR NEG for Grp B Strep
== END ==
PROVIDERS: PCP Physician Assistant Medical; Referring Provider Family Medicine; Visit Provider Family Medicine
DX: Z34.90 Encounter for supervision of normal pregnancy, unspecified, unspecified trimester (principal); Z3A.36 36 weeks gestation of pregnancy
CPT/HCPCS: 87653

== ENCOUNTER 2020-02-09 22:38 | Outpatient (CLI) | payer BC, SELFPAY | END 2020-02-09 23:20 | disposition home or self-care (01) | LOC: OB 02-10 10:02 | PROVIDERS: PCP Physician Assistant Medical; Referring Provider Family Medicine; Visit Provider Specialist | DX: Z34.03 Encounter for supervision of normal first pregnancy, third trimester (principal); Z3A.38 38 weeks gestation of pregnancy | CPT/HCPCS: 59025; 84112; G0378; G0379 ==

== ENCOUNTER 2020-02-10 10:08 | Inpatient (IN) | payer BC, SELFPAY ==
[2020-02-10] VITALS (8 sets, daily range): BP systolic 102–126; BP diastolic 58–76; PULSE 113–124; RESP 14–18; TEMP 36.8; O2SAT 99–100
[2020-02-10 11:26] LABS: COVID19 -Nasal RAPID Negative (Negative)
--- NOTE | 2020-02-10 11:27 | PM.OBHP.1 ---
OB HPI Date/Time Date of admission: 02/10/20 Date Patient Seen: 02/10/20 Time Patient Seen: 11:40 History of Present Condition Chief complaint: Observation of labor : 1 Para: 0 Estimated Date of Delivery: 02/20/20 Estimated Gestational Age (weeks): 38w4d Narrative: Bonny Marquez is a 24 year old at 38 weeks and 4 days gestation. Patient woke at approximately 8:30 a.m. this morning and was very wet. When she stood up there was a gush of clear fluid. She has had good movement no bleeding. Contractions have just started to waste picker in the last hour or so. She rates her contractions 7/10 but they are not regular. Her dating is based on a first trimester ultrasound which was a month off of her LMP. Estimated weight at the 92nd percentile on 20 week ultrasound. Estimated weight at 28 weeks was at the 99th percentile so she was referred to maternal medicine for macrosomia. 1 hour glucose was normal. Estimated weight was at the n91st percentile at 36 weeks and the main rolloff driver of that estimate was abdominal circumference. Maternal medicine recommended consideration for induction at 39 weeks. She gained an excessive amount of weight this at 71 lb. She also had a echo this per [facility] because of use of Paxil very early in . echo was normal. She was switched to sertraline before 8 weeks of and did well on sertraline throughout the remainder of her . Lastly her sister delivered an infant with tetralogy of Fallot several months ago. Meds otherwise no family history of heart or defects. History of Present care: initiated at week # (7), number of visits (11) and pounds weight gain (71) Dating criteria: based on 1st trimester US only Ultrasounds: normal mid trimester US and abnormal US findings Abnormal ultrasound findings: Followed by maternal medicine for macrosomia without other anomalies Obstetrical complications: other ( macrosomia) Medical complications: none Preadmission Labs Blood type: O (+) positive -: Antibody screen: negative, GBS status: negative, HBsAG: negative, HIV: negative and RPR/VDLR: negative -: Chlamydia screen: not detected and Gonorrhea screen: not detected -: Rubella: not immune and Varicella: immune HCT: 33.5 HCAB: negative Quad screen: Normal Urine: Negative 1 hr GTT: 126 Evaluation Evaluation Baseline heart rate: 140 Variability: Moderate (11-25) monitor accelerations: Present monitor decelerations: Absent Uterine Contraction Intensity: Moderate Category of Tracing: Reactive Cervical dilation (cm): 1 Cervical effacement (%): 95 station: -2 Laboratory results: Laboratory Tests 02/10/20 10:45 COVID-19 PCR Negative Non-invasive Membranes Rupture Test: positive [facility] [place] Medical History Anxiety and depression (~2014) Trauma Surgical History H/O wisdom tooth extraction (~2014) Family History Father No problems noted. Mother Depression Grandfather Congestive heart failure History of open heart surgery Grandmother Congestive heart failure History of open heart surgery Grandfather No problems noted. 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 needs: No Smoking Status: Never smoker second hand exposure: No alcohol intake: former substance use type: does not use Meds Home Medications and Allergies Home Medications Medication Instructions Recorded Confirmed Type ondansetron 4 mg disintegrating 4 mg PO Q6H 07/08/19 01/31/20 History tablet prenat.vits,nely,bot-tnls-gnibc 1 tab PO DAILY 07/08/19 01/31/20 History sertraline 50 mg tablet 50 mg PO DAILY #30 tab 11/08/19 01/31/20 Rx Allergies Allergy/AdvReac Type Severity Reaction Status Date / Time No Known Drug Allergies Allergy Verified 07/08/19 13:55 Review of Systems Review of Systems ROS: Yes All systems reviewed with the patient and are negative except as otherwise documented Exam Const General: healthy appearing and comfortable HENMT Head: normal to inspection Ears: hearing grossly normal bilaterally Nose: external nose normal Face and sinus: normal facial exam Mouth: oral mucosae normal Eyes General: appearance normal, both eyes and all related structures Neck Neck: normal visual inspection Resp Effort & Inspection: normal respiratory effort Auscultation: clear to auscultation bilaterally Cardio Rate: regular rate Rhythm: regular rhythm Heart Sounds: no murmurs GI Other: Gravid External Female Exam: normal external appearance Manual OB Exam: dilated (1.5), effaced (95) and station -2 Presentation: vertex Estimated Weight (lbs): 9 Amniotic Fluid: clear Back/Spine/Pelvis Back: normal to inspection Skin General: no rashes or lesions noted Extrem General: normal to inspection and no pedal edema Objective Labs Labs: Laboratory Results - last 24 hr 02/10/20 10:45 COVID-19 PCR Negative Assessment and Plan Assessment and Plan Assessment and Plan narrative: 24-year-old at 38 weeks and 4 days gestation with spontaneous rupture of membranes at 8:30 a.m.. Patient reports she is just now starting to feel more painful contractions. She has been followed by maternal medicine since 30 weeks due to macrosomia. There was a 1 month discrepancy between her first ultrasound and LMP so dating is based on first trimester ultrasound. Glucola was normal. She has gained 71 lb this . Plan Discussed expectant management verses augmentation with Pitocin. Patient will walk for an hour then would like to start Pitocin if she is not kiya regularly on her own. Epidural upon request. GBS negative, COVID negative.
[2020-02-10 12:18] LABS: Add Manual Diff / Slide Review NO; Basophils Absolute Auto 100 /uL (0-100); Basophils Percent Auto 0.5 % (0-2); Eosinophils Absolute Auto 100 /uL (0-450); Eosinophils Percent Auto 0.6 % (2-4); Hematocrit 33.2 % (36-46); Hemoglobin 10.6 g/dL (12.0-16.0); Lymphocytes Absolute Auto 2200 /uL (1100-4500); Lymphocytes Percent Auto 19.5 % (25-40); Mean Corpuscular Hemoglobin 24.9 PG (26-34); Mean Corpuscular Volume 77.9 fL (80-100); Monocytes Absolute Auto 1100 /uL (0-900); Monocytes Percent Auto 9.6 % (3-14); Neutrophils Absolute Auto 7700 /uL (1500-7000); Neutrophils Percent Auto 69.8 % (50-75); Platelet Count 162 X10^3/uL (150-400); Red Blood Cell Count 4.26 X10^6/uL (4.0-5.2); Red Cell Distribution Width 16.4 % (11.6-14.8); White Blood Cell Count 11.1 X10^3/uL (4.5-11.0)
[2020-02-10] MEDS: LACTATED RINGERS 1,000 ML 100 ML IV ×3 (12:27→18:42)
--- NOTE | 2020-02-10 15:07 | PM.AN.REGBLK ---
Regional Block Pre-procedure Procedure: Continuous Lumbar Epidural for L&D Attending OB provider: Leilani Covarrubias PMH/ROS narrative: term labor, no complications Hx: No personal or family history of anesthesia problems. ASA Class: II Labs: Hct 33.2 % (36-46) L 02/10/20 12:00 Plt Count 162 X10^3/uL (150-400) 02/10/20 12:00 Medications: Current Medications Generic Name Dose Route Start Last Admin Trade Name Freq PRN Reason Stop Dose Admin Diphenhydramine HCl 25 mg 02/10/20 12:54 Diphenhydramine 50 Mg/Ml Vial IV Q10M PRN Pruritis Fentanyl 50 mcg 02/10/20 11:03 Fentanyl 100 Mcg/2 Ml Inj IV Q1H PRN Pain, Moderate (4-6) Lactated Ringer's 1,000 mls @ 100 mls/hr 02/10/20 11:15 02/10/20 14:02 Lactated Ringers IV 100 mls/hr CONT NAVA Administration FENT 2MCG/ML BUPIV 0.125% EPI 200 mcg in 100 mls @ 6 mls/hr 02/10/20 13:00 Fentanyl/Bupiv/Ns 2mcg/Ml - 0.125% EPIDURAL CONT NAVA Naloxone HCl 0.2 mg 02/10/20 11:03 Naloxone 0.4 Mg/Ml Vial IV Q2MIN PRN Opiate Reversal Allergies: Allergies Allergy/AdvReac Type Severity Reaction Status Date / Time No Known Drug Allergies Allergy Verified 07/08/19 13:55 Procedure Insertion date: 02/10/20 Insertion time: 14:29 Prep/Local: betadine x3 Interspace: L2-3 Patient position: sitting Needle: 18 gauge Hustead (CSE: 27g Pencan through Hustead, clear CSF, 1mL 0.25% bupiv) Loss of resistance with: saline QIAN at (cm): 5 Catheter placed at SKIN (cm): 11 Catheter in SPACE (cm): 6 Insertion: No Blood, No Paresthesia with insertion, No Paresthesia with injection and No Test dose reaction Initial Medications TEST DOSE time: 14:30 TEST DOSE: 1.5% lidocaine with epinephrine 1:200k (mL): 3 BOLUS DOSE time: 14:42 BOLUS DOSE (mL): 5 BOLUS DOSE med: 0.25% bupivacaine Infusion INFUSION: 0.125% bupivacaine and with fentanyl 2 mcg/mL Initial rate (mL/hr): 6 Subsequent interventions: 10mL 2% lido in anticipation of CS. Prolonged deceleration followed, to OR. Adequate block for CS. See anesthetic records for section details. Post-procedure Anesthesia time START: 16:21 Anesthesia time END: 18:15 Post-procedure Anesthesia Assessment: Yes CV function: HR/BP stable, Yes Resp function: RR/sat/airway adequate, Yes Post-op hydration adequate, Yes Pain control adequate, Yes Nausea & vomiting absent, Yes Temperature > 36 C, Yes Mental status appropriate and No Anesthesia complications
--- NOTE | 2020-02-10 16:59 | PM.OBPNLAB ---
Date/Time Date Patient Seen: 02/10/20 Time Patient Seen: 17:00 Pain Control Pain control: tolerating well and epidural Comments: Feeling rectal pressure, otherwise comfortable. Pelvic Exam Dilation (cm): 10 Effacement (%): 100 station: 0 Amniotic membrane status: Ruptured Contractions Contraction frequency (min): 3 Contraction intensity: Moderate Status status: Category ll Heart Rate Baseline: 120 Monitor Accelerations: Present Monitor Decelerations: Variable Monitor Variability: Moderate Assessment and Plan Assessment: active labor Plan: continuous present management Comments: Patient complete for 2 hours but labored down due to high station. Now with urge to push at zero station with frequent variables that resolved with position change. [place] aware of possible need for if intolerance or lack of descent. Anticipating a 9 lbs baby.
--- NOTE | 2020-02-10 17:58 | PM.OBPNLAB ---
Date/Time Date Patient Seen: 02/10/20 Time Patient Seen: 17:58 Pain Control Pain control: tolerating well and epidural Pelvic Exam Dilation (cm): 10 Effacement (%): 100 station: 0 Amniotic membrane status: Ruptured Contractions Contraction frequency (min): 3 Contraction intensity: Moderate Status status: Category ll Heart Rate Baseline: 150 Monitor Accelerations: Present Monitor Decelerations: Variable Monitor Variability: Moderate Assessment and Plan Assessment: active labor Plan: Comments: Proceed to for failure to descend and intolerance of labor. Risks discussed with the patient and her partner including bleeding, infection and risk of injury to surrounding organs (bowel, bladder, ureters). Consent signed. While waiting to go back to the OR there was a terminal deceleration to the 80s which was not coming up with resuscitation measures and patient was taken emergently for .
--- NOTE | 2020-02-10 18:08 | PM.PREOP ---
Pre-operative Note COVID-19 COVID-19 status: Negative Result date/Date tested (Pos, Neg/Pending): 02/10/20 Interval Note History & Physical reviewed/Exam performed by Physician: Yes Changes to H&P: No
[2020-02-10] MEDS: CEFAZOLIN 2 GM/100 ML FROZ.PIGGY IV (18:16)
--- NOTE | 2020-02-10 18:33 | SUR.OPER ---
Supine on Padded OR bed, head on pillow, safety belt at thigh, arms secured on padded arm boards at <90 degrees abduction. Bump under right buttock. Legs uncrossed with pillow under knees, gel pad to heels, tape over blanket to lower legs.
--- NOTE | 2020-02-10 18:45 | SUR.OPER ---
live male at 1820. APGARS 6/9. Dr. Longo evaluated (see physician note). Cord blood gas performed by ICICLE MACHINE OPERATOR (see record)
[2020-02-10] MEDS: AZITHROMYCIN 500 MG in DEXTROSE 5% IN WATER 250 ML IV (18:54)
--- NOTE | 2020-02-10 18:55 | SUR.OPER ---
heart rate immediate preoperative = 87
--- NOTE | 2020-02-10 19:31 | PM.OP.1 ---
Procedure & Clinicians Procedure: primary section Same procedure as scheduled: Yes Indications: prolonged bradycardia Surgeon: Blanquita Nelson [employer] Attendant: Leilani Covarrubias Anesthesia Type: Epidural Operative Notes Findings: Male infant in cephalic OP presentation, nuchal cord x1, apgars 6+9, weight 8#5. Normal fallopian tubes, ovaries with an elongated streak-like structure bilaterally. Closure Type: primary Specimen(s): other (arterial and venous umbilical cord gas) Estimated Blood Loss (mL): 1,000 Blood products transfused: none Procedure in detail: Procedures: The patient was consented and being prepped for primary section for second-stage arrest in the setting of macrosomia, when the fetus was noted to have prolonged bradycardia to the 80s that did not respond to conservative measures. She was taken to the operating room with a functioning epidural and a Calvillo catheter already in place. The heart rate was checked with a Doppler and found to be 87, and she underwent emergent abdominal prep with Betadine. The patient underwent emergent section with a David-Barahona entry, with sharp dissection through the fascial layer with a scalpel, blunt separation of the rectus and entry into the peritoneum, and sharp incision of the a uterus above the level of the bladder flap without creating a bladder flap. The fetus was noted to be in OP presentation and delivered with reduction of a loose nuchal cord. The cord was immediately clamped and cut with a portion of cord reserved for arterial and venous cord blood gases, and was handed off to waiting nursing staff. The placenta was then removed spontaneously, and the uterus was exteriorized and cleared of all clots and debris. The uterine incision was repaired with 1-0 chromic in a running, locked fashion. The hysterotomy was notable for significant insertion on the patient's right and down and to the edge of the broad ligament. Repair was performed with careful palpation of the structures within the broad ligament. A 2nd layer of the same suture was used to obtain excellent hemostasis of both the extension and hysterotomy. At this time, a soft spot was noted on the uterine fundus, consistent with question of partial abruption. The uterus was initially soggy but responded to 30 milliunits of pit and 1 dose of 0.2 IM Methergine. After hemostasis was assured on close inspection, the uterus was returned to the abdomen, and the gutters were cleared of all clots and debris. The peritoneum was closed with 3-0 Vicryl, and the fascia reapproximated with 0 Vicryl in a running fashion. The subcutaneous layer was placed with 3 0 Vicryl in an interrupted fashion and the skin was closed with 4-0 biosyn in a running fashion. The patient tolerated the procedure well. sponge lap and needle counts were correct x2. 2 g of Ancef and 500 mg of azithromycin were given at commencement of the case. The patient was taken to the recovery room in stable condition. IVF: 1100ccs LR EBL 1000ccs UOP 100ccs concentrated yellow urine Complications: none Post-operative Condition: stable Disposition: PACU Plan for aftercare: CBC, BMP in PACU.
[2020-02-10 19:43] LABS: Base Excess Cord Arterial Bld -7 (-9.0-2.2); CO2 Cord Arterial Blood 57.6 (40-71); HCO3 Cord Arterial Blood 21.3 (17-27); PO2 Cord Arterial Blood 10 (6-30); pH Cord Arterial Blood 7.18 (7.14-7.38)
[2020-02-10 19:44] LABS: Cord Venous Blood PCO2 44.2 (27-56); Cord Venous Blood PO2 16 (17-41); Cord Venous Blood pH 7.249 (7.25-7.45); HCO3 Cord Venous Blood 19.3 (12-28); O2 Saturation Cord Venous Bld 17 (14-75); Oxygen Sat Cord Arterial Blood 7 (5-59)
[2020-02-10 19:53] LABS: Add Manual Diff / Slide Review NO; Basophils Absolute Auto 100 /uL (0-100); Basophils Percent Auto 0.6 % (0-2); Eosinophils Absolute Auto 0 /uL (0-450); Eosinophils Percent Auto 0.1 % (2-4); Hematocrit 32.6 % (36-46); Lymphocytes Absolute Auto 1100 /uL (1100-4500); Lymphocytes Percent Auto 5.5 % (25-40); Mean Corpuscular HGB Conc 30.8 % (30-36); Mean Corpuscular Hemoglobin 24.4 PG (26-34); Mean Corpuscular Volume 79.3 fL (80-100); Monocytes Absolute Auto 900 /uL (0-900); Monocytes Percent Auto 4.5 % (3-14); Neutrophils Absolute Auto 17900 /uL (1500-7000); Neutrophils Percent Auto 89.3 % (50-75); Platelet Count 165 X10^3/uL (150-400); Red Blood Cell Count 4.11 X10^6/uL (4.0-5.2); Red Cell Distribution Width 16.4 % (11.6-14.8)
--- NOTE | 2020-02-10 19:53 | SUR.PHASEI ---
Pt A&O, nausea resolved, states that she is tolerating the pain without medication. Encouraged her not to let pain get high prior to taking Rx. stable. Dr. Nelson and Mathew have checked on the patient, labs drawn.
[2020-02-10 20:05] LABS: BUN Creatinine Ratio 16.2 (6-22); Blood Urea Nitrogen 11 mg/dL (7-17); Calcium 9.2 mg/dL (8.4-10.2); Carbon Dioxide 19 mmol/L (22-32); Chloride 107 mmol/L (98-107); Estimated Glomerular Filt Rate > 60.0 mL/min (>60); Glucose 128 mg/dL (70-100); HEMOLYSIS 28 (0-50); Potassium 5.3 mmol/L (3.4-5.1); Sodium 132 mmol/L (137-145)
--- NOTE | 2020-02-10 20:10 | SUR.PHASEI ---
Dr Carmona VVO 500 ml IV fluid bolus as hung from the OR; infused prior to departure from PACU. 1999 to BR 1; bed remains elevated at the request of the RN. VSS. Alert and oriented, boyfriend and baby in the room. Report given upon arrival. SCD's on. Stable.
[2020-02-10] MEDS: SODIUM CHLORIDE 0.9% 1,000 ML 100 ML IV (21:00)
[2020-02-10] MEDS: KETOROLAC 30 MG/ML VIAL IV (21:15)
[2020-02-11] MEDS: KETOROLAC 30 MG/ML VIAL IV ×2 (03:04→08:53)
[2020-02-11] MEDS: diphenhydrAMINE 50 MG/ML VIAL 25 MG IV ×2 (04:06→07:07)
[2020-02-11] MEDS: METHYLERGONOVINE 0.2 MG TABLET PO ×4 (04:50→17:20)
[2020-02-11] MEDS: SODIUM CHLORIDE 0.9% 1,000 ML 100 ML IV (06:11)
[2020-02-11 06:39] LABS: Add Manual Diff / Slide Review NO; Basophils Absolute Auto 100 /uL (0-100); Basophils Percent Auto 0.7 % (0-2); Eosinophils Absolute Auto 0 /uL (0-450); Eosinophils Percent Auto 0.2 % (2-4); Hematocrit 23.5 % (36-46); Hemoglobin 7.6 g/dL (12.0-16.0); Lymphocytes Absolute Auto 1800 /uL (1100-4500); Lymphocytes Percent Auto 12.4 % (25-40); Mean Corpuscular HGB Conc 32.3 % (30-36); Mean Corpuscular Hemoglobin 25.2 PG (26-34); Mean Corpuscular Volume 77.9 fL (80-100); Monocytes Absolute Auto 900 /uL (0-900); Neutrophils Absolute Auto 11500 /uL (1500-7000); Neutrophils Percent Auto 80.7 % (50-75); Platelet Count 119 X10^3/uL (150-400); Red Blood Cell Count 3.02 X10^6/uL (4.0-5.2); Red Cell Distribution Width 16.4 % (11.6-14.8); White Blood Cell Count 14.3 X10^3/uL (4.5-11.0)
[2020-02-11 06:48] LABS: BUN Creatinine Ratio 14.6 (6-22); Blood Urea Nitrogen 12 mg/dL (7-17); Calcium 7.9 mg/dL (8.4-10.2); Carbon Dioxide 22 mmol/L (22-32); Chloride 109 mmol/L (98-107); Estimated Glomerular Filt Rate > 60.0 mL/min (>60); Glucose 80 mg/dL (70-100); HEMOLYSIS < 15 (0-50); Potassium 4.1 mmol/L (3.4-5.1); Sodium 131 mmol/L (137-145)
--- NOTE | 2020-02-11 08:31 | P.PNOB_ITS ---
Subjective - OB Subjective Patient comments: pain well controlled and incisional pain [place] baby status: doing well [place] feeding status: exclusively breast feeding Narrative: This patient is a 24-year-old now P1 POD#1 s/p emergent section c/b cervical laceration and hemorrhage. Date Patient Seen: 02/11/20 Time Patient Seen: 08:33 Interval history: The patient reports feeling well this AM, denies chest pain, SOB, [place], dizziness, palpitations. Reports good pain control, moderate lochia. Has not passed flatus, is for VT later today after ambulation, is for breakfast this AM. Exam Vital Signs (past 8 hours): HR 120s, BPs 120s/80s, afebrile Oxygen Delivery Method Room Air Const General: cooperative, healthy appearing and comfortable Other: resting in bed with Resp Effort & Inspection: normal respiratory effort Auscultation: clear to auscultation bilaterally Cardio Rate: tachycardic Rhythm: regular rhythm GI Inspection: incision (c/d/i) and obesity Palpation: soft and No tender Objective Labs Result Diagrams: 02/12/20 05:30 02/12/20 05:30 Labs: Laboratory Results - last 24 hr 02/10/20 02/10/20 02/10/20 10:45 12:00 12:00 WBC 11.1 H RBC 4.26 Hgb 10.6 L Hct 33.2 L MCV 77.9 L MCH 24.9 L MCHC 32.0 RDW 16.4 H Plt Count 162 Neut % (Auto) 69.8 Lymph % (Auto) 19.5 L [place] % (Auto) 9.6 Eos % (Auto) 0.6 L Baso % (Auto) 0.5 Neut # (Auto) 7700 H Lymph # (Auto) 2200 [place] # (Auto) 1100 H Eos # (Auto) 100 Baso # (Auto) 100 Cord ABG pH Cord ABG pCO2 Cord ABG pO2 Cord ABG HCO3 Cord ABG Base Excess Cord ABG O2 Sat Cord VBG pH Cord VBG pCO2 Cord VBG pO2 Cord VBG HCO3 Cord VBG Base Excess Cord VBG O2 Sat Sodium Potassium Chloride Carbon Dioxide BUN Creatinine Estimated GFR BUN/Creatinine Ratio Glucose Calcium COVID-19 PCR Negative Blood Type O Positive Antibody Screen Negative 02/10/20 02/10/20 02/10/20 18:37 19:42 19:42 WBC 20.0 H D RBC 4.11 Hgb 10.0 L Hct 32.6 L MCV 79.3 L MCH 24.4 L MCHC 30.8 RDW 16.4 H Plt Count 165 Neut % (Auto) 89.3 H Lymph % (Auto) 5.5 L [place] % (Auto) 4.5 Eos % (Auto) 0.1 L Baso % (Auto) 0.6 Neut # (Auto) 72826 H Lymph # (Auto) 1100 [place] # (Auto) 900 Eos # (Auto) 0 Baso # (Auto) 100 Cord ABG pH 7.18 Cord ABG pCO2 57.6 Cord ABG pO2 10 Cord ABG HCO3 21.3 Cord ABG Base Excess -7 Cord ABG O2 Sat 7 Cord VBG pH 7.249 L Cord VBG pCO2 44.2 Cord VBG pO2 16 L Cord VBG HCO3 19.3 Cord VBG Base Excess -8.00 L Cord VBG O2 Sat 17 Sodium 132 L Potassium 5.3 H Chloride 107 Carbon Dioxide 19 L BUN 11 Creatinine 0.68 Estimated GFR > 60.0 BUN/Creatinine Ratio 16.2 Glucose 128 H Calcium 9.2 COVID-19 PCR Blood Type Antibody Screen 02/11/20 02/11/20 06:30 06:30 WBC 14.3 H RBC 3.02 L Hgb 7.6 L Hct 23.5 L MCV 77.9 L MCH 25.2 L MCHC 32.3 RDW 16.4 H Plt Count 119 L Neut % (Auto) 80.7 H Lymph % (Auto) 12.4 L [place] % (Auto) 6.0 Eos % (Auto) 0.2 L Baso % (Auto) 0.7 Neut # (Auto) 86097 H Lymph # (Auto) 1800 [place] # (Auto) 900 Eos # (Auto) 0 Baso # (Auto) 100 Cord ABG pH Cord ABG pCO2 Cord ABG pO2 Cord ABG HCO3 Cord ABG Base Excess Cord ABG O2 Sat Cord VBG pH Cord VBG pCO2 Cord VBG pO2 Cord VBG HCO3 Cord VBG Base Excess Cord VBG O2 Sat Sodium 131 L Potassium 4.1 D Chloride 109 H Carbon Dioxide 22 BUN 12 Creatinine 0.82 Estimated GFR > 60.0 BUN/Creatinine Ratio 14.6 Glucose 80 Calcium 7.9 L COVID-19 PCR Blood Type Antibody Screen Assessment & Plan Plan day: 1 plan OB: routine postop care Comments: Patient remains tachycardic but otherwise appears well, has no clinical signs of intra abdominal bleeding. Will continue to closely monitor, trend labs later today. Time Spent With Patient Time: Total time spent is greater than 50% in coordination of care (as documented) at patient's floor/unit and/or counseling patient: Time with patient: less than 15 minutes
--- NOTE | 2020-02-11 08:35 | PM.OBPN.1 ---
Subjective - OB Subjective Patient comments: no complaints and pain well controlled [place] baby status: doing well and nursing well feeding status: exclusively breast feeding Date Patient Seen: 02/11/20 Time Patient Seen: 08:00 Interval history: Denies complaints this morning, specifically SOB, dizziness/lightheadedness, chest pain. HR in the 120s overnight. Vaginal bleeding is moderate. She has not gotten up yet. Exam Vital Signs (past 8 hours): Oxygen Delivery Method Room Air Temperature 99.6? blood pressure 125/81 heart rate 120 Narrative Exam Narrative: General: Awake and alert, no acute distress. HEENT: NCAT, EOMI, moist oral mucosa CV: Regular rate and rhythm, no murmurs, rubs or gallops Lungs: CTAB, no wheezes, rales, or rhonchi Abdomen: Aquacel dressing intact without drainage. Soft, nontender; bowel tones active; uterus firm 1 cm below umbilicus. Extremities: Warm, trace edema bilaterally, 2+ pedal pulses bilaterally Objective Labs Result Diagrams: 02/11/20 06:30 02/11/20 06:30 Labs: Laboratory Results - last 24 hr 02/10/20 02/10/20 02/10/20 10:45 12:00 12:00 WBC 11.1 H RBC 4.26 Hgb 10.6 L Hct 33.2 L MCV 77.9 L MCH 24.9 L MCHC 32.0 RDW 16.4 H Plt Count 162 Neut % (Auto) 69.8 Lymph % (Auto) 19.5 L [place] % (Auto) 9.6 Eos % (Auto) 0.6 L Baso % (Auto) 0.5 Neut # (Auto) 7700 H Lymph # (Auto) 2200 [place] # (Auto) 1100 H Eos # (Auto) 100 Baso # (Auto) 100 Cord ABG pH Cord ABG pCO2 Cord ABG pO2 Cord ABG HCO3 Cord ABG Base Excess Cord ABG O2 Sat Cord VBG pH Cord VBG pCO2 Cord VBG pO2 Cord VBG HCO3 Cord VBG Base Excess Cord VBG O2 Sat Sodium Potassium Chloride Carbon Dioxide BUN Creatinine Estimated GFR BUN/Creatinine Ratio Glucose Calcium COVID-19 PCR Negative Blood Type O Positive Antibody Screen Negative 02/10/20 02/10/20 02/10/20 18:37 19:42 19:42 WBC 20.0 H D RBC 4.11 Hgb 10.0 L Hct 32.6 L MCV 79.3 L MCH 24.4 L MCHC 30.8 RDW 16.4 H Plt Count 165 Neut % (Auto) 89.3 H Lymph % (Auto) 5.5 L [place] % (Auto) 4.5 Eos % (Auto) 0.1 L Baso % (Auto) 0.6 Neut # (Auto) 73978 H Lymph # (Auto) 1100 [place] # (Auto) 900 Eos # (Auto) 0 Baso # (Auto) 100 Cord ABG pH 7.18 Cord ABG pCO2 57.6 Cord ABG pO2 10 Cord ABG HCO3 21.3 Cord ABG Base Excess -7 Cord ABG O2 Sat 7 Cord VBG pH 7.249 L Cord VBG pCO2 44.2 Cord VBG pO2 16 L Cord VBG HCO3 19.3 Cord VBG Base Excess -8.00 L Cord VBG O2 Sat 17 Sodium 132 L Potassium 5.3 H Chloride 107 Carbon Dioxide 19 L BUN 11 Creatinine 0.68 Estimated GFR > 60.0 BUN/Creatinine Ratio 16.2 Glucose 128 H Calcium 9.2 COVID-19 PCR Blood Type Antibody Screen 02/11/20 02/11/20 06:30 06:30 WBC 14.3 H RBC 3.02 L Hgb 7.6 L Hct 23.5 L MCV 77.9 L MCH 25.2 L MCHC 32.3 RDW 16.4 H Plt Count 119 L Neut % (Auto) 80.7 H Lymph % (Auto) 12.4 L [place] % (Auto) 6.0 Eos % (Auto) 0.2 L Baso % (Auto) 0.7 Neut # (Auto) 01638 H Lymph # (Auto) 1800 [place] # (Auto) 900 Eos # (Auto) 0 Baso # (Auto) 100 Cord ABG pH Cord ABG pCO2 Cord ABG pO2 Cord ABG HCO3 Cord ABG Base Excess Cord ABG O2 Sat Cord VBG pH Cord VBG pCO2 Cord VBG pO2 Cord VBG HCO3 Cord VBG Base Excess Cord VBG O2 Sat Sodium 131 L Potassium 4.1 D Chloride 109 H Carbon Dioxide 22 BUN 12 Creatinine 0.82 Estimated GFR > 60.0 BUN/Creatinine Ratio 14.6 Glucose 80 Calcium 7.9 L COVID-19 PCR Blood Type Antibody Screen Assessment & Plan Assessment and Plan (1) 38 weeks gestation of : Status: Acute (2) S/P : Problem details: intolerance of labor, failure to descend, direct OP with nuchal cord Status: Acute (3) Acute blood loss anemia: Status: Acute (4) Tachycardia: Status: Acute (5) Hyponatremia: Status: Acute Plan day: 1 plan OB: routine postop care Comments: 24-year-old G1-now-P1 day 1 after emergency for intolerance of labor. This morning she denies any complaints and infant is doing well. She was quite tachycardic throughout her labor yesterday for unclear reasons though possibly due to anxiety. She remains tachycardic today but her heart rate is in the 120s, down from the 150s and she is asymptomatic. Denies feeling palpitations, chest pains, shortness of breath or dizziness. H/H this morning was 7.6/23.5, down from 10.6/33.2 on admission. She does not appear to be symptomatic though is persistently tachycardic. Will hold off on blood transfusion but start iron replacement. Given persistent tachycardia, considered PE, dehydration and infection however she is afebrile and has been receiving a considerable amount of fluids. PE felt to be less likely given lack of symptoms, clear lungs on exam and normal oxygen saturations. Will monitor closely for development of any new concerning symptoms and workup as indicated. She was also found to be mildly hyponatremic following surgery last night. She was started on normal saline in place of lactated Ringer's. Sodium is 1 point lower this morning. Will continue normal saline in her fluids and recheck a BMP later today. Continue routine postop care. If she continues to do well, may be able to discharge home tomorrow afternoon. Time Spent With Patient Time: Total time spent is greater than 50% in coordination of care (as documented) at patient's floor/unit and/or counseling patient: Time with patient: less than 15 minutes
[2020-02-11] MEDS: DOCUSATE 250 MG CAPSULE PO (08:53)
[2020-02-11] MEDS: hydrOXYzine pamoate 25 MG CAPSULE PO (08:53)
[2020-02-11] MEDS: PRENATAL VIT,CALC/IRON/FOLIC 1 TABLET 1 TAB PO (08:53)
[2020-02-11] MEDS: SERTRALINE 50 MG TABLET PO (08:53)
[2020-02-11 13:11] LABS: Add Manual Diff / Slide Review NO; Basophils Absolute Auto 100 /uL (0-100); Basophils Percent Auto 0.5 % (0-2); Eosinophils Absolute Auto 0 /uL (0-450); Eosinophils Percent Auto 0.1 % (2-4); Hematocrit 23.6 % (36-46); Hemoglobin 7.6 g/dL (12.0-16.0); Lymphocytes Absolute Auto 1000 /uL (1100-4500); Lymphocytes Percent Auto 7.2 % (25-40); Mean Corpuscular HGB Conc 32.2 % (30-36); Mean Corpuscular Hemoglobin 25.1 PG (26-34); Mean Corpuscular Volume 78.1 fL (80-100); Monocytes Absolute Auto 900 /uL (0-900); Monocytes Percent Auto 6.3 % (3-14); Neutrophils Absolute Auto 11800 /uL (1500-7000); Neutrophils Percent Auto 85.9 % (50-75); Platelet Count 132 X10^3/uL (150-400); Red Blood Cell Count 3.02 X10^6/uL (4.0-5.2); Red Cell Distribution Width 16.6 % (11.6-14.8); White Blood Cell Count 13.7 X10^3/uL (4.5-11.0)
[2020-02-11] MEDS: ACETAMINOPHEN 325 MG TABLET 650 MG PO ×2 (13:13→20:57)
[2020-02-11 13:24] LABS: BUN Creatinine Ratio 15.1 (6-22); Blood Urea Nitrogen 11 mg/dL (7-17); Calcium 7.8 mg/dL (8.4-10.2); Carbon Dioxide 23 mmol/L (22-32); Chloride 110 mmol/L (98-107); Estimated Glomerular Filt Rate > 60.0 mL/min (>60); Glucose 99 mg/dL (70-100); HEMOLYSIS < 15 (0-50); Potassium 4.2 mmol/L (3.4-5.1); Sodium 134 mmol/L (137-145)
[2020-02-11] MEDS: IBUPROFEN 600 MG TABLET PO ×2 (14:59→20:57)
[2020-02-12] MEDS: ACETAMINOPHEN 325 MG TABLET 650 MG PO ×2 (03:17→09:23)
[2020-02-12] MEDS: IBUPROFEN 600 MG TABLET PO ×2 (03:17→09:23)
[2020-02-12 05:40] LABS: Add Manual Diff / Slide Review NO; Basophils Absolute Auto 100 /uL (0-100); Basophils Percent Auto 0.4 % (0-2); Eosinophils Absolute Auto 100 /uL (0-450); Eosinophils Percent Auto 0.9 % (2-4); Hematocrit 22.6 % (36-46); Lymphocytes Absolute Auto 1700 /uL (1100-4500); Lymphocytes Percent Auto 12.1 % (25-40); Mean Corpuscular HGB Conc 31.2 % (30-36); Mean Corpuscular Hemoglobin 24.7 PG (26-34); Mean Corpuscular Volume 79.4 fL (80-100); Monocytes Absolute Auto 1100 /uL (0-900); Monocytes Percent Auto 7.7 % (3-14); Neutrophils Absolute Auto 10800 /uL (1500-7000); Neutrophils Percent Auto 78.9 % (50-75); Platelet Count 158 X10^3/uL (150-400); Red Blood Cell Count 2.84 X10^6/uL (4.0-5.2); Red Cell Distribution Width 16.6 % (11.6-14.8); White Blood Cell Count 13.7 X10^3/uL (4.5-11.0)
[2020-02-12 05:49] LABS: BUN Creatinine Ratio 16.7 (6-22); Blood Urea Nitrogen 10 mg/dL (7-17); Calcium 7.9 mg/dL (8.4-10.2); Carbon Dioxide 26 mmol/L (22-32); Chloride 112 mmol/L (98-107); Estimated Glomerular Filt Rate > 60.0 mL/min (>60); Glucose 101 mg/dL (70-100); HEMOLYSIS < 15 (0-50); Potassium 3.8 mmol/L (3.4-5.1); Sodium 135 mmol/L (137-145)
[2020-02-12 07:57] VITALS: BP 113/76; PULSE 101; RESP 16; TEMP 36.8
--- NOTE | 2020-02-12 08:32 | P.DS_ITS ---
Discharge Providers Provider Date of admission: 02/10/20 10:08 Discharge Date: 02/12/20 Primary care physician: Liya Doherty Consults: 02/10/20 20:22 Consult to Development Lead Routine Comment: Discharge provider: Leilani Covarrubias DO Summary Hospital Course Date Patient Seen: 02/12/20 Time Patient Seen: 08:00 Procedures: Primarily section Hospital Course: Patient is a 24 year old G1-now-P1 after emergency for fe analy distress. She arrived at the center after SROM at home and progressed into active labor spontaneously. She went on to receive an epidural with excellent pain control. She was quite tachycardic throughout labor in the 140s- 150s which did not improve after fluids or epidural however patient states she was very anxious. She denied chest pain, SOB, dizziness/lightheadedness or palpitations. She rapidly progressed to complete however fetus was still high in the pelvis. She labored down for over an hour and fetus descended to zero station. She a trial of pushing however recurrent deep variables which resolved with resuscitation. Dr. Nelson was consulted for evaluation and possible c- section given lack of descent and variables. Pushing again attempted but with no significant descent and caput noted on head. The decision was made for primarily . While waiting to go back there was a prolonged deceleration to the 80s which did not resolve with conservative measures so she was taken for an emergency . delivered with apgars of 6 and 9. He required a b rief period of CPAP for poor respiratory effort then improved and was transferred to mother. No further resusciation of the required. Patient received methergine intraoperatively for low uterine tone and a methergine series . course was uncomplicated. She did remarkably well all things considered. She was anemic as expected after blood loss during surgery but denied symptoms of anemia. She was started on iron replacement. Heart rate was still elevated in the 120s on day one but came down to the 90-100s on day of discharge. Pain well-controlled with ibuprofen and Tylenol only. She was ambulating, voiding and passing flatus. Tolerating a diet. She voiced no concerns and was eager to go home with her and partner. was going very well and no concerns in the . Patient advised to call for fevers, severe pain or bleeding through a pad an hour. She will follow up in clinic on 02/16 for Aquacel removal. Peripartum Data Delivery Method: Emergency Section complications: none 1: Gender: Male Disposition of : home Discharge Diagnosis (1) 38 weeks gestation of : Status: Acute (2) S/P : Status: Acute Problem Details: intolerance of labor, failure to descend, direct OP with nuchal cord (3) Acute blood loss anemia: Status: Acute (4) Tachycardia: Status: Acute (5) Hyponatremia: Status: Acute Status at Discharge Functional status at discharge: independent ambulation Overall status at discharge: patient is progressing back to baseline Time Spent with Patient Time attestation: Total time spent providing and/or coordinating discharge services: Time spent: Less than 30 minutes Objective Labs Result Diagrams: 02/12/20 05:30 02/12/20 05:30 Labs: Laboratory Results - last 24 hr 02/11/20 02/11/20 02/12/20 13:02 13:02 05:30 WBC 13.7 H 13.7 H RBC 3.02 L 2.84 L Hgb 7.6 L 7.0 L Hct 23.6 L 22.6 L MCV 78.1 L 79.4 L MCH 25.1 L 24.7 L MCHC 32.2 31.2 RDW 16.6 H 16.6 H Plt Count 132 L 158 Neut % (Auto) 85.9 H 78.9 H Lymph % (Auto) 7.2 L 12.1 L [place] % (Auto) 6.3 7.7 Eos % (Auto) 0.1 L 0.9 L Baso % (Auto) 0.5 0.4 Neut # (Auto) 62353 H 74089 H Lymph # (Auto) 1000 L 1700 [place] # (Auto) 900 1100 H Eos # (Auto) 0 100 Baso # (Auto) 100 100 Sodium 134 L Potassium 4.2 Chloride 110 H Carbon Dioxide 23 BUN 11 Creatinine 0.73 Estimated GFR > 60.0 BUN/Creatinine Ratio 15.1 Glucose 99 Calcium 7.8 L 02/12/20 05:30 WBC RBC Hgb Hct MCV MCH MCHC RDW Plt Count Neut % (Auto) Lymph % (Auto) [place] % (Auto) Eos % (Auto) Baso % (Auto) Neut # (Auto) Lymph # (Auto) [place] # (Auto) Eos # (Auto) Baso # (Auto) Sodium 135 L Potassium 3.8 Chloride 112 H Carbon Dioxide 26 BUN 10 Creatinine 0.60 Estimated GFR > 60.0 BUN/Creatinine Ratio 16.7 Glucose 101 H Calcium 7.9 L Exam Vital Signs (past 8 hours): Oxygen Delivery Method Room Air Temperature 97.6? blood pressure 118/78 heart rate 101 respirations 17 General: Awake and alert, no acute distress. HEENT: NCAT, EOMI, moist oral mucosa CV: Regular rate and rhythm, no murmurs, rubs or gallops Lungs: CTAB, no wheezes, rales, or rhonchi Abdomen: Aquacel dressing intact without drainage. Soft, nontender; bowel tone s active; uterus firm 1 cm above umbilicus Extremities: Warm, no edema bilaterally, 2+ pedal pulses bilaterally Discharge Plan Discharge Plan Patient Disposition: Home Discharge orders & Medications Prescriptions: New ferrous sulfate 325 mg (65 mg iron) Tablet 325 mg PO DAILY Qty: 30 RF: 0 ibuprofen 600 mg Tablet 600 mg PO Q6HR PRN (Reason: Fever/Mild Pain (1-3)) Qty: 30 RF: 0 docusate sodium 250 mg Capsule 250 mg PO DAILY Qty: 30 RF: 0 oxycodone 5 mg Tablet 5 mg PO Q4HR PRN (Reason: Pain, Moderate (4-6)) Qty: 20 RF: 0 Continued sertraline 50 mg tablet 50 mg PO DAILY Qty: 30 RF: 3 prenat.vits,nely,rzm-[id number] Tablet 1 tab PO DAILY RF: 0 Follow up/Referrals: Leilani Covarrubias DO [Physician] - 02/17/20 10:45 am Liya Doherty [Primary Care Provider] - Visit Report/Discharge Packet Instructions: DI for Stand Alone Forms: Discharge: Care Visit Report Forms: Patient Portal/API, Stroke Signs & Symptoms Discharge Data Primary Care Provider: Liya Doherty
[2020-02-12] MEDS: FERROUS SULFATE 325 MG TABLET PO (09:22)
[2020-02-12] MEDS: DOCUSATE 250 MG CAPSULE PO (09:22)
[2020-02-12] MEDS: SERTRALINE 50 MG TABLET PO (09:22)
[2020-02-12] MEDS: PRENATAL VIT,CALC/IRON/FOLIC 1 TABLET 1 TAB PO (09:22)
--- NOTE | 2020-02-12 10:27 | PM.OBPN.1 ---
Subjective - OB Subjective Patient comments: no complaints, pain well controlled, tolerating diet and flatus present baby status: doing well [place] feeding status: exclusively breast feeding Narrative: This patient is postop day 2 status post emergent section for prolonged bradycardia. The patient reports feeling well, taking only Motrin with good pain control, voiding, ambulating without difficulty, passing flatus, mild to moderate lochia. No chest pain, palpitations, dizziness. Patient tolerating good p.o. Date Patient Seen: 02/12/20 Time Patient Seen: 10:27 Exam Vital Signs (past 8 hours): 118/78, heart rate 101, temperature 97.6? F Oxygen Delivery Method Room Air Const General: cooperative, healthy appearing and comfortable GI Inspection: incision (Clean, dry, covered by Aquacel) and obesity Palpation: soft and No tender Other: Fundus firm, well below U Extrem General: normal to inspection Objective Labs Result Diagrams: 02/12/20 05:30 02/12/20 05:30 Labs: Laboratory Results - last 24 hr 02/11/20 02/11/20 02/12/20 13:02 13:02 05:30 WBC 13.7 H 13.7 H RBC 3.02 L 2.84 L Hgb 7.6 L 7.0 L Hct 23.6 L 22.6 L MCV 78.1 L 79.4 L MCH 25.1 L 24.7 L MCHC 32.2 31.2 RDW 16.6 H 16.6 H Plt Count 132 L 158 Neut % (Auto) 85.9 H 78.9 H Lymph % (Auto) 7.2 L 12.1 L [place] % (Auto) 6.3 7.7 Eos % (Auto) 0.1 L 0.9 L Baso % (Auto) 0.5 0.4 Neut # (Auto) 56186 H 24352 H Lymph # (Auto) 1000 L 1700 [place] # (Auto) 900 1100 H Eos # (Auto) 0 100 Baso # (Auto) 100 100 Sodium 134 L Potassium 4.2 Chloride 110 H Carbon Dioxide 23 BUN 11 Creatinine 0.73 Estimated GFR > 60.0 BUN/Creatinine Ratio 15.1 Glucose 99 Calcium 7.8 L 02/12/20 05:30 WBC RBC Hgb Hct MCV MCH MCHC RDW Plt Count Neut % (Auto) Lymph % (Auto) [place] % (Auto) Eos % (Auto) Baso % (Auto) Neut # (Auto) Lymph # (Auto) [place] # (Auto) Eos # (Auto) Baso # (Auto) Sodium 135 L Potassium 3.8 Chloride 112 H Carbon Dioxide 26 BUN 10 Creatinine 0.60 Estimated GFR > 60.0 BUN/Creatinine Ratio 16.7 Glucose 101 H Calcium 7.9 L Assessment & Plan Assessment and Plan (1) 38 weeks gestation of : Status: Acute (2) S/P : Problem details: intolerance of labor, failure to descend, direct OP with nuchal cord Status: Acute (3) Acute blood loss anemia: Status: Acute (4) Tachycardia: Status: Acute (5) Hyponatremia: Status: Acute Plan day: 2 plan OB: routine postop care and discharge home Comments: This patient clinically appears remarkably well, with no signs or symptoms of ongoing blood loss intra-abdominal or otherwise. Patient's hemoglobin has been trended, and a slightly decreased from yesterday in the setting of ongoing blood loss due to lochia and equilibration. Given patient's stable vital signs, well appearance, and minimal pain, patient appears stable for discharge. Precautions reiterated. Time Spent With Patient Time: Total time spent is greater than 50% in coordination of care (as documented) at patient's floor/unit and/or counseling patient: Time with patient: 15-24 minutes
== END 2020-02-12 11:35 | disposition home or self-care (01) | DRG 787 ==
PROVIDERS: Anesthesiology; Obstetrics & Gynecology; Admitting Provider Family Medicine; PCP Physician Assistant Medical; Referring Provider Family Medicine; Visit Provider Family Medicine
PROC: (CPT 59514; principal; 2020-02-10 18:30)
DX: O69.1XX0 Labor and delivery complicated by cord around neck, with compression, not applicable or unspecified (principal); D62 Acute posthemorrhagic anemia; E87.1 Hypo-osmolality and hyponatremia; R00.0 Tachycardia, unspecified; O76 Abnormality in fetal heart rate and rhythm complicating labor and delivery; Z3A.38 38 weeks gestation of pregnancy; Z37.0 Single live birth
CPT/HCPCS: 01967; 01968; 36415; 59025; 59050; 59510; 59514; 80048; 82803; 84112; 85025; 86850; 86900; 86901; 87635; G0379; J0690; J1200; J1885; J2274; J2405; J2590; J3010

== ENCOUNTER → 2020-07-06 11:37 | Outpatient (CLI) | payer BC, SELFPAY ==
[2020-07-06 13:19] LABS: COVID19 -Nasal RAPID Negative (Negative)
== END ==
PROVIDERS: PCP Physician Assistant Medical; Visit Provider Student in an Organized Health Care Education/Training Program
DX: R05 Cough (principal); Z20.822 Contact with and (suspected) exposure to COVID-19
CPT/HCPCS: 87635

== ENCOUNTER 2022-05-26 15:58 | Emergency (ER) | payer BC, SELFPAY ==
[2022-05-26] VITALS (11 sets, daily range): BP systolic 99–121; BP diastolic 55–76; PULSE 118–162; RESP 14–30; TEMP 37.4; O2SAT 96–97; BMI 28.7
--- NOTE | 2022-05-26 16:23 | ED_ITS ---
HPI - Psych General Chief Complaint: Psychiatric Symptoms Stated Complaint: anxiety,dehydration,thoughts of hurting self Time Seen by Provider: 05/26/22 16:23 Source: patient Mode of arrival: Ambulatory Related Data Previous Rx's Medication Instructions Recorded alprazolam 0.25 mg tablet 0.25 mg PO DAILY #4 tabs 02/22/22 paroxetine HCl 20 mg tablet 20 mg PO DAILY #30 tabs 02/22/22 norethindrone acetate 1.5 See Rx Instructions .Route 03/15/22 mg-ethinyl estradiol 30 mcg tablet .COMPLEX #21 tabs () Allergies Allergy/AdvReac Type Severity Reaction Status Date / Time No Known Drug Allergies Allergy Verified 02/22/22 09:33 Patient History Medical History (Updated 02/28/22 @ 07:32 by Leilani Covarrubias DO) Anxiety and depression (~2014) Panic disorder Trauma Surgical History H/O wisdom tooth extraction (~2014) S/P Family History Father No problems noted. Mother Depression Grandfather Congestive heart failure History of open heart surgery Grandmother Congestive heart failure History of open heart surgery Grandfather No problems noted. 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 - [employer] Supervisor Stat 05/26/22 16:21 Acetaminophen Stat BNP [NT-proBNP (BNP-Adult 18+)] Stat Complete Blood Count AUTO DIFF Stat Comprehensive Metabolic Panel Stat D Dimer Stat Ethanol (ETOH) Stat Salicylate Stat TSH w/ Reflex to FT4 Stat Troponin & CK Cardiac Panel Stat 05/26/22 16:23 XR chest 1V Stat Urine Drug Screen, Rapid Stat EKG-12 Lead Stat 05/26/22 16:24 Consult to [facility] [employer] Supervisor Urgent 05/26/22 16:30 Ictotest Urine Stat Urine Drug Screen, Rapid Stat Urine Microscopic Stat Discontinued Medications Sodium Chloride (Normal Saline 0.9%) 1,000 mls @ 1,000 mls/hr IV BOLUS ONE Stop: 05/26/22 17:22 Vital Signs Vital signs: Vital Signs - 8 hr 05/26/22 16:03 05/26/22 16:47 05/26/22 17:17 Temperature 99.3 F Pulse Rate 162 H 134 H 129 H Respiratory Rate 18 Blood Pressure 121/76 117/68 107/68 Pulse Oximetry 97 96 96 Oxygen Delivery Method Room Air Room Air Room Air MDM - Psych Lab Data 05/26/22 16:21 05/26/22 16:21 Labs: Lab Results 05/26/22 05/26/22 05/26/22 Range/Units 16:21 16:21 16:30 WBC 10.5 (4.5-11.0) X10^3/uL RBC 5.96 H (4.0-5.2) X10^6/uL Hgb 17.3 H (12.0-16.0) g/dL Hct 51.4 H (36-46) % MCV 86.3 (80-100) fL MCH 28.9 (26-34) PG MCHC 33.6 (30-36) % RDW 13.9 (11.6-14.8) % Plt Count 284 (150-400) X10^3/uL Neut % (Auto) 90.3 H (50-75) % Lymph % (Auto) 3.6 L (25-40) % [place] % (Auto) 5.9 (3-14) % Eos % (Auto) 0.0 L (2-4) % Baso % (Auto) 0.2 (0-2) % Neut # (Auto) 9400 H (5494-6639) /uL Lymph # (Auto) 400 L (3869-1723) /uL [place] # (Auto) 600 (0-900) /uL Eos # (Auto) 0 (0-450) /uL Baso # (Auto) 0 (0-100) /uL D-Dimer 952 H (<500) ng/ml Ur Bilirubin Confirm (Negative) Urine RBC (0-5/HPF) Urine WBC (0-5/HPF) Ur Squamous Epith Cells (0-5/HPF) Urine Bacteria (None) Ur Culture Indicated? U Opiates 300ng/mL cut Negative (Negative) Ur Oxycodone Screen Negative (Negative) Urine Methadone Screen Negative (Negative) Ur Barbiturates Screen Negative (Negative) U Tricyclic Antidepress Negative (Negative) Ur Phencyclidine Scrn Negative (Negative) Ur Amphetamines Screen Negative (Negative) U Methamphetamines Scrn Negative (Negative) Ur MDMA Scrn (Ecstasy) Negative (Negative) U Benzodiazepines Scrn Negative (Negative) Urine Cocaine Screen Negative (Negative) U Marijuana (THC) Screen Negative (Negative) 05/26/22 05/26/22 Range/Units 16:30 16:30 WBC (4.5-11.0) X10^3/uL RBC (4.0-5.2) X10^6/uL Hgb (12.0-16.0) g/dL Hct (36-46) % MCV (80-100) fL MCH (26-34) PG MCHC (30-36) % RDW (11.6-14.8) % Plt Count (150-400) X10^3/uL Neut % (Auto) (50-75) % Lymph % (Auto) (25-40) % [place] % (Auto) (3-14) % Eos % (Auto) (2-4) % Baso % (Auto) (0-2) % Neut # (Auto) (9612-1174) /uL Lymph # (Auto) (0640-4123) /uL [place] # (Auto) (0-900) /uL Eos # (Auto) (0-450) /uL Baso # (Auto) (0-100) /uL D-Dimer (<500) ng/ml Ur Bilirubin Confirm Negative (Negative) Urine RBC 0-1/hpf (0-5/HPF) Urine WBC 1-5/hpf (0-5/HPF) Ur Squamous Epith Cells 1-5 /hpf (0-5/HPF) Urine Bacteria Many (>30) H (None) Ur Culture Indicated? Cult not indicated U Opiates 300ng/mL cut (Negative) Ur Oxycodone Screen (Negative) Urine Methadone Screen (Negative) Ur Barbiturates Screen (Negative) U Tricyclic Antidepress (Negative) Ur Phencyclidine Scrn (Negative) Ur Amphetamines Screen (Negative) U Methamphetamines Scrn (Negative) Ur MDMA Scrn (Ecstasy) (Negative) U Benzodiazepines Scrn (Negative) Urine Cocaine Screen (Negative) U Marijuana (THC) Screen (Negative) Point of Care Testing Test Results Negative Urine Dip Bedside Urine Glucose Negative Bedside Urine Bilirubin ++ 2 Bedside Urine Ketone +++ 80 Urine Specific [place] 1.030 Bedside Urine Occult Blood - Negative Bedside Urine pH 6.0 Bedside Urine Protein + 30 Bedside Urine Urobilinogen +/- 1mg Bedside Urine Nitrite - Negative Bedside Urine Leukocytes - Negative Esterase Discharge Plan Departure Prescriptions: No Action paroxetine HCl 20 mg tablet 20 mg PO DAILY Qty: 30 2RF alprazolam 0.25 mg tablet 0.25 mg PO DAILY Qty: 4 0RF norethindrone ac-eth estradiol [ (21)] 1.5-30 mg-mcg tablet See Rx Instructions .ROUTE .COMPLEX Qty: 21 5RF Dose Instruction: TAKE 1 TABLET BY MOUTH DAILY Rx Instructions: TAKE 1 TABLET BY MOUTH DAILY Referrals: Liya Doherty [Primary Care Provider] -
--- NOTE | 2022-05-26 16:23 | DI.RAD.S_ITS ---
PROCEDURE: XR CHEST 1V INDICATIONS: suicidal thoughts, tachycardia TECHNIQUE: One view of the chest was acquired. COMPARISON: None. FINDINGS: Surgical changes and devices: None. Lungs and pleura: Lungs are clear. No pleural effusions or pneumothorax. Mediastinum: Mediastinal contours appear normal. Heart size is normal. Bones and chest wall: No suspicious bony lesions. Overlying soft tissues appear unremarkable. IMPRESSION: No acute cardiopulmonary abnormality. Dictated by: Louis Cook M.D. on 05/26/2022 at 16:51 Approved by: Louis Cook M.D. on 05/26/2022 at 16:51
[2022-05-26 16:42] LABS: Add Manual Diff / Slide Review NO; Basophils Absolute Auto 0 /uL (0-100); Basophils Percent Auto 0.2 % (0-2); D Dimer 952 ng/ml (<500); Eosinophils Absolute Auto 0 /uL (0-450); Hematocrit 51.4 % (36-46); Hemoglobin 17.3 g/dL (12.0-16.0); Lymphocytes Absolute Auto 400 /uL (1100-4500); Lymphocytes Percent Auto 3.6 % (25-40); Mean Corpuscular HGB Conc 33.6 % (30-36); Mean Corpuscular Hemoglobin 28.9 PG (26-34); Mean Corpuscular Volume 86.3 fL (80-100); Monocytes Absolute Auto 600 /uL (0-900); Monocytes Percent Auto 5.9 % (3-14); Neutrophils Absolute Auto 9400 /uL (1500-7000); Neutrophils Percent Auto 90.3 % (50-75); Platelet Count 284 X10^3/uL (150-400); Red Blood Cell Count 5.96 X10^6/uL (4.0-5.2); Red Cell Distribution Width 13.9 % (11.6-14.8); White Blood Cell Count 10.5 X10^3/uL (4.5-11.0)
[2022-05-26 16:46] LABS: Ur Creatinine Normal (Normal); Ur Specific Gravity Normal (Normal); Urine pH Normal (Normal)
[2022-05-26 16:47] LABS: Ictotest Urine Negative (Negative); UR Morphine/Opiate cutoff 300 Negative (Negative); Urine Amphetamines Negative (Negative); Urine Barbiturates Negative (Negative); Urine Benzodiazepines Negative (Negative); Urine Cocaine Negative (Negative); Urine MDMA Negative (Negative); Urine Methadone Negative (Negative); Urine Methamphetamines Negative (Negative); Urine Oxycodone Negative (Negative); Urine Phencyclidine Negative (Negative); Urine Tetrahydrocannabinol Negative (Negative); Urine Tricyclic Antidepressant Negative (Negative)
--- NOTE | 2022-05-26 16:58 | CM.SWNOTE ---
Addendum entered by Kenyetta Au 05/26/22 19:38: HEALTH EDUCATION SPECIALIST was informed by RN that patient left ED before being seen, it was reported that patient's mother requested for her to return but patient refused to do so. Kenyetta Au, [facility] Original Note: HEALTH EDUCATION SPECIALIST Assessment HEALTH EDUCATION SPECIALIST - Drug Clerk Assessment HEALTH EDUCATION SPECIALIST/Drug Clerk Assessment Time Spent with Patient Start date 05/26/22 Visit Start Time 16:00 End date 05/26/22 Visit End Time 16:15 Total time Care Management spent on 15 minutes patient visit-in minutes Mental Health Screening Include Onset, Duration, Intensity Presenting Problem Patient presents to ED via POV due to concern for dehydration, SI, and anxiety. Patient endorses she had thoughts and intent last night of using her ex's gun to kill self, patient states she has access to gun. Patient endorses she has had intrusive thoughts and anxiety since Monday and states she has not been able to eat or drink due to stress. Precipitating Event(s) Patient endorses she just started a new job and her sister and sister's son just moved in with her. Patient endorses her nephew got sick and she blames herself because her son was sick and nephew is in the hospital right now due to ongoing health issues. Patient endorses she does not feel like telling family about her intrusive thoughts because she does not want them to worry. Patient endorses she has an on /off relationship with her child's father and that can be stressful. Patient Strengths Patient presents to ED to seek help, patient is interested in voluntary tx, patient has good supports, Patient is interested in outpatient MH services Current Behavioral Health Provider(s) No current provider Include Facility, Provider, Ph. # Psych. Hx Mental Health and Chemical Patient has hx of Anxiety, Dependency Depression, Panic Disorder, Self harm and SI. Patient denies hx of substance use or ETOH use. Patient's PCP Dr. Covarrubias prescribes patient Paoxetine HCl 20mg and Alprazolam .25mg Family Hx of Behavioral Abuse Per EMR, patient has hx of trauma. Patient does not disclose. Psychiatric Hospitalizations (date(s)/ No hx. location) Psychosocial information & Support Patient is 27 y/o female who Systems resides with 2 y/o son in [place]. Patient endorses her sister and nephew just moved in with her and her mother resides nearby on [address]. Patient endorses she feels safe at home, but is concerned about sketchy neighbors. Patient endorses her mother is currently caring for her son, and mother knows patient is here. School/Work Patient works at [employer] as [employer] Legal Concerns Legal Matters - Outstanding Issues None reported Mental Status Orientation (Person/Place/Time) A/Ox4 Stated Mood stressed Affect (Congruent with Mood?) euthymic, tearful at times, full range, congruent with mood. Thought Content - Specify/Describe Patient endorses paranoia and Obsessions, Delusions, Hallucinations hx of catastrophizing and constantly worrying. Patient endorses hx of hearing whispers of people saying her name, patient states it last happened a few weeks ago. Patient endorses hx of visual and tactile hallucinations since she was a child. Patient endorses a few years ago she saw an owl man walk across the road and sometimes sees odd things out of the corner of her eye. Patient endorses that when she was a kid she remembers feels like someone was shaking her. Thought Processes (Byalltw-Lnzyrpwr-Mwgp coherent Hfnykajt-Tzvxegov-Kiolmymswu- Vdgacihnsfgcww-Litolst-Mhdhobnirogb- Thought Blocking) Speech (Injgfm-Lpdw-Pvxdemg-Rapid-Soft- normal Loud-Pressured) Motor (Yqxssa-Beadeinim-Mfsu-Other) normal Insight (Dmhm-Nrmv-Vbyt/Limited) fair Judgement (Rxjf-Jnbh-Oltw/Limited) fair Impulse Control (Adequate-Impaired) adequate Memory (Tviaenhcf-Zojrrp-Kyrzoi, intact, not formally assessed Impaired-Intact) Concentration (Intact-Impaired) intact Attention (Intact-Impaired) intact Behavior (Appropriate-Inappropriate) appropriate Additional Comment Patient presents as calm, cooperative and communicative. Risk Assessment Suicidal Ideation (Plan) Yes Homicidal Ideation (Plan) No Comment Patient denies HI. Patient endorses hx of self harm and hx of SI. Patient endorses increase in SI in the last few days. Patient endorses thought and intent to use gun she had access to to kill self. Patient endorses current SI, but came to ED because hse is seeking help. Intervention Intervention HEALTH EDUCATION SPECIALIST enters triage room to meet with patient, present in room is internet salesperson. Patient endorses increase in SI in recent days with thoughts of plans. Patient endorses increase in stress and anxiety, patient states due to stress she has been unable to eat and drink. Patient endorsees current SI and states her plan last night was thoughts of using a gun she has access to. Patient endorses she is interested in voluntary inpatient hospitalization and outpatient . It is the opinion of this HEALTH EDUCATION SPECIALIST that patient is appropriate for and will benefit from voluntary inpatient hospitalization for safety, crisis stabilization and medication management. HEALTH EDUCATION SPECIALIST reviews the above with ED provider Dr. Beauchamp who indicates agreement and understanding. Plan RA Plan HEALTH EDUCATION SPECIALIST to seek voluntary inpatient bed for patient upon medical clearance. Kenyetta Au, DIRECTOR OF HOME HEALTH SERVICES
[2022-05-26 17:00] LABS: Bacteria Urine Many (>30); RBC Urine 0-1/HPF (0-5/HPF); Squamous Epithelial Cell Urine 1-5 /HPF (0-5/HPF); WBC Urine 1-5/HPF (0-5/HPF)
[2022-05-26 17:01] LABS: Culture Indicated Urine Cult Not Indicated
[2022-05-26] MEDS: SODIUM CHLORIDE 0.9% 1,000 ML 1000 ML IV ×2 (17:43→20:19)
[2022-05-26 17:58] LABS: Acetaminophen < 10 ug/mL (10-30); Alanine Aminotransferase 18 IU/L (<35); Albumin 4.5 g/dL (3.5-5.0); Albumin Globulin Ratio 1.3 (1.0-2.8); Alkaline Phosphatase 106 U/L (38-126); Aspartate Aminotransferase 21 IU/L (14-36); BUN Creatinine Ratio 17.7 (6-22); Bilirubin Total 1.2 mg/dL (0.2-1.3); Blood Urea Nitrogen 14 mg/dL (7-17); Calcium 8.7 mg/dL (8.4-10.2); Carbon Dioxide 16 mmol/L (22-32); Chloride 102 mmol/L (98-107); Creatine Kinase 54 U/L (30-135); Estimated Glomerular Filt Rate > 60 mL/min (>60); Ethanol (ETOH) < 10 mg/dL; Globulin 3.6 g/dL (1.7-4.1); Glucose 101 mg/dL (70-100); HEMOLYSIS < 15 (0-50); Potassium 3.7 mmol/L (3.4-5.1); Salicylate < 1.0 mg/dL (<20); Sodium 135 mmol/L (137-145); Total Protein 8.1 g/dL (6.3-8.2)
[2022-05-26 18:09] LABS: NT-proBNP (BNP-Adult 18+) 45 pg/mL (<125); Troponin I < 0.012 ng/mL (0.01-0.034)
--- NOTE | 2022-05-26 18:12 | DI.CT.S_ITS ---
PROCEDURE: CT ANGIO CHEST PE PROTOCOL INDICATIONS: tachycardic, critical Dimer, Preg NEG TECHNIQUE: After the administration of intravenous contrast, 2 mm thick sections acquired from the pulmonary apices to the posterior costophrenic angles. 3-dimensional maximum intensity projection (MIP) coronal and sagittal reformats were then acquired through the thorax. For radiation dose reduction, the following was used: automated exposure control, adjustment of mA and/or kV according to patient size. COMPARISON: None. FINDINGS: Image quality: Excellent. Lungs and pleura: No acute air space opacities. No pleural effusions or pneumothorax. Central and peripheral airways are patent and normal in caliber. Mediastinum: Heart size is normal. No pericardial effusion. No mediastinal adenopathy by size criteria. Thoracic aorta and central pulmonary arteries are normal in size. Esophagus is normal in caliber. No hiatal hernia. Bones and chest wall: No suspicious bony lesions. No vertebral body compression fractures. No axillary or supraclavicular adenopathy by size criteria. Thyroid gland is normal. Abdomen: Limited visualization of the upper abdomen shows no acute abnormality. IMPRESSION: No acute abnormality of the abdomen or pelvis. Dictated by: Darci Blanco M.D. on 05/26/2022 at 18:48 Approved by: Darci Blanco M.D. on 05/26/2022 at 18:55
[2022-05-26 18:24] LABS: COVID19 -Nasal RAPID Negative (Negative)
[2022-05-26 18:50] LABS: TSH w/ Reflex to FT4 0.46 uIU/mL (0.47-4.68)
--- NOTE | 2022-05-26 19:10 | ED_ITS ---
HPI - Psych <Mauricio Hall DO - Last Filed: 05/28/22 02:03> General Chief Complaint: Psychiatric Symptoms Stated Complaint: anxiety,dehydration,thoughts of hurting self Time Seen by Provider: 05/26/22 16:23 Source: patient Mode of arrival: Ambulatory History of Present Illness HPI Narrative: 27-year-old female nonsmoker with history of panic disorder, anxiety and depression and reports a chronic history of tachycardia presents with suicidal thoughts and a plan. She states that she has had thoughts of wanting to hurt herself and would plan to use her excess gone and has access to this gone. She is had intrusive thoughts and anxiety since Monday and has not been eating or drinking. She is concerned about possibly being dehydrated. She states triggers for this event are likely to be a new job in a family member that is as well as a nephew has recently moved in with them. Related Data Previous Rx's Medication Instructions Recorded alprazolam 0.25 mg tablet 0.25 mg PO DAILY #4 tabs 02/22/22 paroxetine HCl 20 mg tablet 20 mg PO DAILY #30 tabs 02/22/22 norethindrone acetate 1.5 See Rx Instructions .Route 03/15/22 mg-ethinyl estradiol 30 mcg tablet .COMPLEX #21 tabs (June) Allergies Allergy/AdvReac Type Severity Reaction Status Date / Time No Known Drug Allergies Allergy Verified 02/22/22 09:33 Review of Systems <Mauricio Hall DO - Last Filed: 05/28/22 02:03> Review of Systems Narrative: GENERAL: Denies chills, fatigue, malaise, fever, sweats. HEENT: Denies sinus pain, ear pain, sore throat, difficulty swallowing, dizziness. RESPIRATORY: Denies dyspnea, cough, wheezing, hemoptysis, sputum. CARDIOVASCULAR: Denies chest pain, palpitations, orthopnea, edema, GASTROINTESTINAL: Denies nausea, vomiting, abdominal pain, diarrhea, constipation, melena. : Denies dysuria, frequency, incontinence, hematuria, urinary retention. MUSCULOSKELETAL: denies weakness, joint pain, or bony pain SKIN: Denies rash, skin lesions, or other NEUROLOGIC: Denies weakness, headache, numbness, change in speech, confusion, seizures, incoordination. PSYCHIATRIC: See HPI 12 point review of systems is negative except for those stated above Patient History <Mauricio Hall DO - Last Filed: 05/28/22 02:03> Medical History Anxiety and depression (~2014) Panic disorder Trauma Surgical History H/O wisdom tooth extraction (~2014) S/P Family History Father No problems noted. Mother Depression Grandfather Congestive heart failure History of open heart surgery Grandmother Congestive heart failure History of open heart surgery Grandfather No problems noted. 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 Well-developed patient, in mild distress. HEAD: Atraumatic. Normocephalic. EYES: Pupils equal round and reactive. Extraocular motions intact. No scleral icterus. No injection or drainage. ENT: Nose without bleeding, purulent drainage. Throat without erythema, tonsillar hypertrophy or exudate. Airway patent. NECK: Trachea midline. Non tender CARDIOVASCULAR: Regular rate and rhythm without murmurs, gallops, or rubs. RESPIRATORY: Clear to auscultation. Breath sounds equal bilaterally. No wheezes, rales, or rhonchi. GASTROINTESTINAL: Abdomen soft, non-tender, nondistended. EXTREMITIES: No edema or joint tenderness. BACK: Nontender without deformity or crepitance. No flank tenderness. NEURO: AOx3. SKIN: No rash or erythema of visible areas Initial Vital Signs Initial Vital Signs: Vital Signs Temperature 99.3 F 05/26/22 16:03 Pulse Rate 162 H 05/26/22 16:03 Respiratory Rate 18 05/26/22 16:03 Blood Pressure 121/76 05/26/22 16:03 Pulse Oximetry 97 05/26/22 16:03 Oxygen Delivery Method Room Air 05/26/22 16:03 <Hilary Manning, DO - Last Filed: 05/27/22 18:56> Initial Vital Signs Initial Vital Signs: Vital Signs Temperature 99.3 F 05/26/22 16:03 Pulse Rate 162 H 05/26/22 16:03 Respiratory Rate 18 05/26/22 16:03 Blood Pressure 121/76 05/26/22 16:03 Pulse Oximetry 97 05/26/22 16:03 Oxygen Delivery Method Room Air 05/26/22 16:03 Course <Mauricio Hall DO - Last Filed: 05/28/22 02:03> Orders Ordered: Discontinued Medications Sodium Chloride (Normal Saline 0.9%) 1,000 mls @ 1,000 mls/hr IV BOLUS ONE Stop: 05/26/22 17:22 Last Infusion: 05/26/22 19:00 Dose: 0 mls/hr Documented By: Admin: 05/26/22 17:43 Dose: 1,000 mls/hr Documented By: MARIA FERNANDA Sodium Chloride (Normal Saline 0.9%) 1,000 mls @ 1,000 mls/hr IV BOLUS ONE Stop: 05/26/22 20:14 Last Infusion: 05/27/22 00:49 Dose: 0 mls/hr Documented By: Admin: 05/26/22 20:19 Dose: 1,000 mls/hr Documented By: ERICKA Paroxetine HCl (Paroxetine 20 Mg Tablet) 20 mg PO NOW ONE Stop: 05/27/22 00:03 Last Admin: 05/27/22 01:02 Dose: 20 mg Documented By: ERICKA Reevaluation(s) Reevaluation #1: patient resting comfortably. Heart rate continues to improve now down to about 110-115, this is at her baseline. She admits that she still feels suicidal but no longer intense to act on it Reevaluation #2: Patient medically cleared and appropriate for placement at a psychiatric facility Vital Signs Vital signs: Vital Signs - 8 hr 05/27/22 13:41 Pulse Rate 102 H Respiratory Rate 18 Blood Pressure 111/67 Pulse Oximetry 98 Oxygen Delivery Method Room Air <Hilary Manning DO - Last Filed: 05/27/22 18:56> Orders Ordered: Discontinued Medications Sodium Chloride (Normal Saline 0.9%) 1,000 mls @ 1,000 mls/hr IV BOLUS ONE Stop: 05/26/22 17:22 Last Infusion: 05/26/22 19:00 Dose: 0 mls/hr Documented By: Admin: 05/26/22 17:43 Dose: 1,000 mls/hr Documented By: MARIA FERNANDA Sodium Chloride (Normal Saline 0.9%) 1,000 mls @ 1,000 mls/hr IV BOLUS ONE Stop: 05/26/22 20:14 Last Infusion: 05/27/22 00:49 Dose: 0 mls/hr Documented By: Admin: 05/26/22 20:19 Dose: 1,000 mls/hr Documented By: ERICKA Paroxetine HCl (Paroxetine 20 Mg Tablet) 20 mg PO NOW ONE Stop: 05/27/22 00:03 Last Admin: 05/27/22 01:02 Dose: 20 mg Documented By: ERICKA Vital Signs Vital signs: Vital Signs - 8 hr 05/27/22 13:41 Pulse Rate 102 H Respiratory Rate 18 Blood Pressure 111/67 Pulse Oximetry 98 Oxygen Delivery Method Room Air MDM - Psych <Mauricio Hall DO - Last Filed: 05/28/22 02:03> Lab Data 05/26/22 16:21 05/26/22 17:28 Labs: Lab Results 05/26/22 05/26/22 05/26/22 Range/Units 16:21 16:21 16:30 WBC 10.5 (4.5-11.0) X10^3/uL RBC 5.96 H (4.0-5.2) X10^6/uL Hgb 17.3 H (12.0-16.0) g/dL Hct 51.4 H (36-46) % MCV 86.3 (80-100) fL MCH 28.9 (26-34) PG MCHC 33.6 (30-36) % RDW 13.9 (11.6-14.8) % Plt Count 284 (150-400) X10^3/uL Neut % (Auto) 90.3 H (50-75) % Lymph % (Auto) 3.6 L (25-40) % [place] % (Auto) 5.9 (3-14) % Eos % (Auto) 0.0 L (2-4) % Baso % (Auto) 0.2 (0-2) % Neut # (Auto) 9400 H (3829-3106) /uL Lymph # (Auto) 400 L (3686-8608) /uL [place] # (Auto) 600 (0-900) /uL Eos # (Auto) 0 (0-450) /uL Baso # (Auto) 0 (0-100) /uL D-Dimer 952 H (<500) ng/ml Sodium (137-145) mmol/L Potassium (3.4-5.1) mmol/L Chloride (98-107) mmol/L Carbon Dioxide (22-32) mmol/L BUN (7-17) mg/dL Creatinine (0.52-1.04) mg/dL Estimated GFR (>60) mL/min BUN/Creatinine Ratio (6-22) Glucose (70-100) mg/dL Calcium (8.4-10.2) mg/dL Total Bilirubin (0.2-1.3) mg/dL AST (14-36) IU/L ALT (<35) IU/L Alkaline Phosphatase (38-126) U/L Total Creatine Kinase (30-135) U/L CK-MB (CK-2) CK-MB (CK-2) Rel Index Troponin I (0.01-0.034) ng/mL NT-Pro-B Natriuret Pep (<125) pg/mL Total Protein (6.3-8.2) g/dL Albumin (3.5-5.0) g/dL Globulin (1.7-4.1) g/dL Albumin/Globulin Ratio (1.0-2.8) TSH (0.47-4.68) uIU/mL Free T4 (0.78-2.19) ng/dL Ur Bilirubin Confirm (Negative) Urine RBC (0-5/HPF) Urine WBC (0-5/HPF) Ur Squamous Epith Cells (0-5/HPF) Urine Bacteria (None) Ur Culture Indicated? Salicylates (<20) mg/dL U Opiates 300ng/mL cut Negative (Negative) Ur Oxycodone Screen Negative (Negative) Urine Methadone Screen Negative (Negative) Acetaminophen (10-30) ug/mL Ur Barbiturates Screen Negative (Negative) U Tricyclic Antidepress Negative (Negative) Ur Phencyclidine Scrn Negative (Negative) Ur Amphetamines Screen Negative (Negative) U Methamphetamines Scrn Negative (Negative) Ur MDMA Scrn (Ecstasy) Negative (Negative) U Benzodiazepines Scrn Negative (Negative) Urine Cocaine Screen Negative (Negative) U Marijuana (THC) Screen Negative (Negative) Ethyl Alcohol ( - 10) mg/dL SARS-CoV-2 (PCR) (Negative) 05/26/22 05/26/22 05/26/22 Range/Units 16:30 16:30 17:28 WBC (4.5-11.0) X10^3/uL RBC (4.0-5.2) X10^6/uL Hgb (12.0-16.0) g/dL Hct (36-46) % MCV (80-100) fL MCH (26-34) PG MCHC (30-36) % RDW (11.6-14.8) % Plt Count (150-400) X10^3/uL Neut % (Auto) (50-75) % Lymph % (Auto) (25-40) % [place] % (Auto) (3-14) % Eos % (Auto) (2-4) % Baso % (Auto) (0-2) % Neut # (Auto) (7904-4499) /uL Lymph # (Auto) (4255-3946) /uL [place] # (Auto) (0-900) /uL Eos # (Auto) (0-450) /uL Baso # (Auto) (0-100) /uL D-Dimer (<500) ng/ml Sodium 135 L (137-145) mmol/L Potassium 3.7 (3.4-5.1) mmol/L Chloride 102 (98-107) mmol/L Carbon Dioxide 16 L (22-32) mmol/L BUN 14 (7-17) mg/dL Creatinine 0.79 (0.52-1.04) mg/dL Estimated GFR > 60 (>60) mL/min BUN/Creatinine Ratio 17.7 (6-22) Glucose 101 H (70-100) mg/dL Calcium 8.7 (8.4-10.2) mg/dL Total Bilirubin 1.2 (0.2-1.3) mg/dL AST 21 (14-36) IU/L ALT 18 (<35) IU/L Alkaline Phosphatase 106 (38-126) U/L Total Creatine Kinase 54 (30-135) U/L CK-MB (CK-2) TNP CK-MB (CK-2) Rel Index TNP Troponin I < 0.012 (0.01-0.034) ng/mL NT-Pro-B Natriuret Pep 45 (<125) pg/mL Total Protein 8.1 (6.3-8.2) g/dL Albumin 4.5 (3.5-5.0) g/dL Globulin 3.6 (1.7-4.1) g/dL Albumin/Globulin Ratio 1.3 (1.0-2.8) TSH (0.47-4.68) uIU/mL Free T4 (0.78-2.19) ng/dL Ur Bilirubin Confirm Negative (Negative) Urine RBC 0-1/hpf (0-5/HPF) Urine WBC 1-5/hpf (0-5/HPF) Ur Squamous Epith Cells 1-5 /hpf (0-5/HPF) Urine Bacteria Many (>30) H (None) Ur Culture Indicated? Cult not indicated Salicylates < 1.0 (<20) mg/dL U Opiates 300ng/mL cut (Negative) Ur Oxycodone Screen (Negative) Urine Methadone Screen (Negative) Acetaminophen < 10 (10-30) ug/mL Ur Barbiturates Screen (Negative) U Tricyclic Antidepress (Negative) Ur Phencyclidine Scrn (Negative) Ur Amphetamines Screen (Negative) U Methamphetamines Scrn (Negative) Ur MDMA Scrn (Ecstasy) (Negative) U Benzodiazepines Scrn (Negative) Urine Cocaine Screen (Negative) U Marijuana (THC) Screen (Negative) Ethyl Alcohol < 10 ( - 10) mg/dL SARS-CoV-2 (PCR) (Negative) 05/26/22 05/26/22 Range/Units 17:28 18:03 WBC (4.5-11.0) X10^3/uL RBC (4.0-5.2) X10^6/uL Hgb (12.0-16.0) g/dL Hct (36-46) % MCV (80-100) fL MCH (26-34) PG MCHC (30-36) % RDW (11.6-14.8) % Plt Count (150-400) X10^3/uL Neut % (Auto) (50-75) % Lymph % (Auto) (25-40) % [place] % (Auto) (3-14) % Eos % (Auto) (2-4) % Baso % (Auto) (0-2) % Neut # (Auto) (2368-5554) /uL Lymph # (Auto) (9400-1467) /uL [place] # (Auto) (0-900) /uL Eos # (Auto) (0-450) /uL Baso # (Auto) (0-100) /uL D-Dimer (<500) ng/ml Sodium (137-145) mmol/L Potassium (3.4-5.1) mmol/L Chloride (98-107) mmol/L Carbon Dioxide (22-32) mmol/L BUN (7-17) mg/dL Creatinine (0.52-1.04) mg/dL Estimated GFR (>60) mL/min BUN/Creatinine Ratio (6-22) Glucose (70-100) mg/dL Calcium (8.4-10.2) mg/dL Total Bilirubin (0.2-1.3) mg/dL AST (14-36) IU/L ALT (<35) IU/L Alkaline Phosphatase (38-126) U/L Total Creatine Kinase (30-135) U/L CK-MB (CK-2) CK-MB (CK-2) Rel Index Troponin I (0.01-0.034) ng/mL NT-Pro-B Natriuret Pep (<125) pg/mL Total Protein (6.3-8.2) g/dL Albumin (3.5-5.0) g/dL Globulin (1.7-4.1) g/dL Albumin/Globulin Ratio (1.0-2.8) TSH 0.46 L (0.47-4.68) uIU/mL Free T4 1.71 (0.78-2.19) ng/dL Ur Bilirubin Confirm (Negative) Urine RBC (0-5/HPF) Urine WBC (0-5/HPF) Ur Squamous Epith Cells (0-5/HPF) Urine Bacteria (None) Ur Culture Indicated? Salicylates (<20) mg/dL U Opiates 300ng/mL cut (Negative) Ur Oxycodone Screen (Negative) Urine Methadone Screen (Negative) Acetaminophen (10-30) ug/mL Ur Barbiturates Screen (Negative) U Tricyclic Antidepress (Negative) Ur Phencyclidine Scrn (Negative) Ur Amphetamines Screen (Negative) U Methamphetamines Scrn (Negative) Ur MDMA Scrn (Ecstasy) (Negative) U Benzodiazepines Scrn (Negative) Urine Cocaine Screen (Negative) U Marijuana (THC) Screen (Negative) Ethyl Alcohol ( - 10) mg/dL SARS-CoV-2 (PCR) Negative (Negative) Point of Care Testing Test Results Negative Urine Dip Bedside Urine Glucose Negative Bedside Urine Bilirubin ++ 2 Bedside Urine Ketone +++ 80 Urine Specific [place] 1.030 Bedside Urine Occult Blood - Negative Bedside Urine pH 6.0 Bedside Urine Protein + 30 Bedside Urine Urobilinogen +/- 1mg Bedside Urine Nitrite - Negative Bedside Urine Leukocytes - Negative Esterase MDM Narrative Medical decision making narrative: CC: Suicidal ideation with plan Complicating co-morbidities: History of self-harm anxiety Data collected from: Patient Medical records reviewed: Prior notes reviewed in our EMR Differential considered, but not limited to: Severe depression, suicide ideation versus other Exam documented above, pertinent findings include: Tachycardic, alert and oriented, GCS 15, good insight, clear lungs, no respiratory distress, abdomen is soft Lab Test results independently reviewed as above. Pertinent findings: No leukocytosis or left shift, no signs of anemia, D-dimer elevated, electrolytes and renal function as well as cardiac enzymes within normal, free T4 normal Independently reviewed EKG as above Imaging studies independently reviewed: Chest x-ray without acute findings, CT angiogram ordered to rule out the possibility of pulmonary embolism, this is without acute findings Consultations: ABSORPTION AND ADSORPTION ENGINEER Treatments: 2 L normal saline and patient's normal Paxil Re-evaluations: Patient continues to have suicidal thoughts but no longer with plan or intent, Patient heart rate continues to be 115-120 Discussion: 27-year-old female presents with suicidal ideation and plan to use firearms which she has access to. Admittedly she states her symptoms were worse last night and though she still feels suicidal she no longer has plan. She had stopped taking her paroxetine about 1 week ago, this was started up again here. She is alert and oriented and has capacity to make her own decisions. She is voluntary and wishes to pursue hospitalization. She reports having sinus tachycardia for at least the past few years. She has no chest pain or shortness of breath and shows no signs of infection, anemia or electrolyte abnormality. Urine tox screen is negative, D-dimer elevated and CT angiogram ordered to rule out pulmonary embolism as source of tachycardia. <Hilary Manning, DO - Last Filed: 05/27/22 18:56> Lab Data Labs: Lab Results 05/26/22 05/26/22 05/26/22 Range/Units 16:21 16:21 16:30 WBC 10.5 (4.5-11.0) X10^3/uL RBC 5.96 H (4.0-5.2) X10^6/uL Hgb 17.3 H (12.0-16.0) g/dL Hct 51.4 H (36-46) % MCV 86.3 (80-100) fL MCH 28.9 (26-34) PG MCHC 33.6 (30-36) % RDW 13.9 (11.6-14.8) % Plt Count 284 (150-400) X10^3/uL Neut % (Auto) 90.3 H (50-75) % Lymph % (Auto) 3.6 L (25-40) % [place] % (Auto) 5.9 (3-14) % Eos % (Auto) 0.0 L (2-4) % Baso % (Auto) 0.2 (0-2) % Neut # (Auto) 9400 H (1988-1498) /uL Lymph # (Auto) 400 L (9625-8894) /uL [place] # (Auto) 600 (0-900) /uL Eos # (Auto) 0 (0-450) /uL Baso # (Auto) 0 (0-100) /uL D-Dimer 952 H (<500) ng/ml Sodium (137-145) mmol/L Potassium (3.4-5.1) mmol/L Chloride (98-107) mmol/L Carbon Dioxide (22-32) mmol/L BUN (7-17) mg/dL Creatinine (0.52-1.04) mg/dL Estimated GFR (>60) mL/min BUN/Creatinine Ratio (6-22) Glucose (70-100) mg/dL Calcium (8.4-10.2) mg/dL Total Bilirubin (0.2-1.3) mg/dL AST (14-36) IU/L ALT (<35) IU/L Alkaline Phosphatase (38-126) U/L Total Creatine Kinase (30-135) U/L CK-MB (CK-2) CK-MB (CK-2) Rel Index Troponin I (0.01-0.034) ng/mL NT-Pro-B Natriuret Pep (<125) pg/mL Total Protein (6.3-8.2) g/dL Albumin (3.5-5.0) g/dL Globulin (1.7-4.1) g/dL Albumin/Globulin Ratio (1.0-2.8) TSH (0.47-4.68) uIU/mL Free T4 (0.78-2.19) ng/dL Ur Bilirubin Confirm (Negative) Urine RBC (0-5/HPF) Urine WBC (0-5/HPF) Ur Squamous Epith Cells (0-5/HPF) Urine Bacteria (None) Ur Culture Indicated? Salicylates (<20) mg/dL U Opiates 300ng/mL cut Negative (Negative) Ur Oxycodone Screen Negative (Negative) Urine Methadone Screen Negative (Negative) Acetaminophen (10-30) ug/mL Ur Barbiturates Screen Negative (Negative) U Tricyclic Antidepress Negative (Negative) Ur Phencyclidine Scrn Negative (Negative) Ur Amphetamines Screen Negative (Negative) U Methamphetamines Scrn Negative (Negative) Ur MDMA Scrn (Ecstasy) Negative (Negative) U Benzodiazepines Scrn Negative (Negative) Urine Cocaine Screen Negative (Negative) U Marijuana (THC) Screen Negative (Negative) Ethyl Alcohol ( - 10) mg/dL SARS-CoV-2 (PCR) (Negative) 05/26/22 05/26/22 05/26/22 Range/Units 16:30 16:30 17:28 WBC (4.5-11.0) X10^3/uL RBC (4.0-5.2) X10^6/uL Hgb (12.0-16.0) g/dL Hct (36-46) % MCV (80-100) fL MCH (26-34) PG MCHC (30-36) % RDW (11.6-14.8) % Plt Count (150-400) X10^3/uL Neut % (Auto) (50-75) % Lymph % (Auto) (25-40) % [place] % (Auto) (3-14) % Eos % (Auto) (2-4) % Baso % (Auto) (0-2) % Neut # (Auto) (8441-1117) /uL Lymph # (Auto) (3293-2205) /uL [place] # (Auto) (0-900) /uL Eos # (Auto) (0-450) /uL Baso # (Auto) (0-100) /uL D-Dimer (<500) ng/ml Sodium 135 L (137-145) mmol/L Potassium 3.7 (3.4-5.1) mmol/L Chloride 102 (98-107) mmol/L Carbon Dioxide 16 L (22-32) mmol/L BUN 14 (7-17) mg/dL Creatinine 0.79 (0.52-1.04) mg/dL Estimated GFR > 60 (>60) mL/min BUN/Creatinine Ratio 17.7 (6-22) Glucose 101 H (70-100) mg/dL Calcium 8.7 (8.4-10.2) mg/dL Total Bilirubin 1.2 (0.2-1.3) mg/dL AST 21 (14-36) IU/L ALT 18 (<35) IU/L Alkaline Phosphatase 106 (38-126) U/L Total Creatine Kinase 54 (30-135) U/L CK-MB (CK-2) TNP CK-MB (CK-2) Rel Index TNP Troponin I < 0.012 (0.01-0.034) ng/mL NT-Pro-B Natriuret Pep 45 (<125) pg/mL Total Protein 8.1 (6.3-8.2) g/dL Albumin 4.5 (3.5-5.0) g/dL Globulin 3.6 (1.7-4.1) g/dL Albumin/Globulin Ratio 1.3 (1.0-2.8) TSH (0.47-4.68) uIU/mL Free T4 (0.78-2.19) ng/dL Ur Bilirubin Confirm Negative (Negative) Urine RBC 0-1/hpf (0-5/HPF) Urine WBC 1-5/hpf (0-5/HPF) Ur Squamous Epith Cells 1-5 /hpf (0-5/HPF) Urine Bacteria Many (>30) H (None) Ur Culture Indicated? Cult not indicated Salicylates < 1.0 (<20) mg/dL U Opiates 300ng/mL cut (Negative) Ur Oxycodone Screen (Negative) Urine Methadone Screen (Negative) Acetaminophen < 10 (10-30) ug/mL Ur Barbiturates Screen (Negative) U Tricyclic Antidepress (Negative) Ur Phencyclidine Scrn (Negative) Ur Amphetamines Screen (Negative) U Methamphetamines Scrn (Negative) Ur MDMA Scrn (Ecstasy) (Negative) U Benzodiazepines Scrn (Negative) Urine Cocaine Screen (Negative) U Marijuana (THC) Screen (Negative) Ethyl Alcohol < 10 ( - 10) mg/dL SARS-CoV-2 (PCR) (Negative) 05/26/22 05/26/22 Range/Units 17:28 18:03 WBC (4.5-11.0) X10^3/uL RBC (4.0-5.2) X10^6/uL Hgb (12.0-16.0) g/dL Hct (36-46) % MCV (80-100) fL MCH (26-34) PG MCHC (30-36) % RDW (11.6-14.8) % Plt Count (150-400) X10^3/uL Neut % (Auto) (50-75) % Lymph % (Auto) (25-40) % [place] % (Auto) (3-14) % Eos % (Auto) (2-4) % Baso % (Auto) (0-2) % Neut # (Auto) (5521-3278) /uL Lymph # (Auto) (5285-8416) /uL [place] # (Auto) (0-900) /uL Eos # (Auto) (0-450) /uL Baso # (Auto) (0-100) /uL D-Dimer (<500) ng/ml Sodium (137-145) mmol/L Potassium (3.4-5.1) mmol/L Chloride (98-107) mmol/L Carbon Dioxide (22-32) mmol/L BUN (7-17) mg/dL Creatinine (0.52-1.04) mg/dL Estimated GFR (>60) mL/min BUN/Creatinine Ratio (6-22) Glucose (70-100) mg/dL Calcium (8.4-10.2) mg/dL Total Bilirubin (0.2-1.3) mg/dL AST (14-36) IU/L ALT (<35) IU/L Alkaline Phosphatase (38-126) U/L Total Creatine Kinase (30-135) U/L CK-MB (CK-2) CK-MB (CK-2) Rel Index Troponin I (0.01-0.034) ng/mL NT-Pro-B Natriuret Pep (<125) pg/mL Total Protein (6.3-8.2) g/dL Albumin (3.5-5.0) g/dL Globulin (1.7-4.1) g/dL Albumin/Globulin Ratio (1.0-2.8) TSH 0.46 L (0.47-4.68) uIU/mL Free T4 1.71 (0.78-2.19) ng/dL Ur Bilirubin Confirm (Negative) Urine RBC (0-5/HPF) Urine WBC (0-5/HPF) Ur Squamous Epith Cells (0-5/HPF) Urine Bacteria (None) Ur Culture Indicated? Salicylates (<20) mg/dL U Opiates 300ng/mL cut (Negative) Ur Oxycodone Screen (Negative) Urine Methadone Screen (Negative) Acetaminophen (10-30) ug/mL Ur Barbiturates Screen (Negative) U Tricyclic Antidepress (Negative) Ur Phencyclidine Scrn (Negative) Ur Amphetamines Screen (Negative) U Methamphetamines Scrn (Negative) Ur MDMA Scrn (Ecstasy) (Negative) U Benzodiazepines Scrn (Negative) Urine Cocaine Screen (Negative) U Marijuana (THC) Screen (Negative) Ethyl Alcohol ( - 10) mg/dL SARS-CoV-2 (PCR) Negative (Negative) Point of Care Testing Test Results Negative Urine Dip Bedside Urine Glucose Negative Bedside Urine Bilirubin ++ 2 Bedside Urine Ketone +++ 80 Urine Specific [place] 1.030 Bedside Urine Occult Blood - Negative Bedside Urine pH 6.0 Bedside Urine Protein + 30 Bedside Urine Urobilinogen +/- 1mg Bedside Urine Nitrite - Negative Bedside Urine Leukocytes - Negative Esterase MDM Narrative Medical decision making narrative: CC: Suicidal ideation with plan Complicating co-morbidities: History of self-harm anxiety Data collected from: Patient Medical records reviewed: Prior notes reviewed in our EMR Differential considered, but not limited to: Severe depression, suicide idea tion versus other Exam documented above, pertinent findings include: Tachycardic, alert and oriented, GCS 15, good insight, clear lungs, no respiratory distress, abdomen is soft Lab Test results independently reviewed as above. Pertinent findings: No leukocytosis or left shift, no signs of anemia, D-dimer elevated, electrolytes and renal function as well as cardiac enzymes within normal, free T4 normal Independently reviewed EKG as above Imaging studies independently reviewed: Chest x-ray without acute findings, CT angiogram ordered to rule out the possibility of pulmonary embolism, this is without acute findings Consultations: ABSORPTION AND ADSORPTION ENGINEER Treatments: 2 L normal saline and patient's normal Paxil Re-evaluations: Patient continues to have suicidal thoughts but no longer with plan or intent, Patient heart rate continues to be 115-120 Discussion: 27-year-old female presents with suicidal ideation and plan to use firearms which she has access to. Admittedly she states her symptoms were worse last night and though she still feels suicidal she no longer has plan. She had stopped taking her paroxetine about 1 week ago, this was started up again here. She is alert and oriented and has capacity to make her own decisions. She is voluntary and wishes to pursue hospitalization. She reports having sinus tachycardia for at least the past few years. She has no chest pain or shortness of breath and shows no signs of infection, anemia or electrolyte abnormality. Urine tox screen is negative, D-dimer elevated and CT angiogram ordered to rule out pulmonary embolism as source of tachycardia. Dr. Manning, patient signed out to me by Dr. Hall I have seen and evaluated patient myself. She is still voluntary wanting placement. She is chronic tachycardia with a heart rate between 110 and 120. There has been thorough evaluation in the emergency department for her heart rate. She is not anemic no electrolyte abnormalities no pulmonary embolism despite elevated D-dimer she is not in thyrotoxic storm she had 2 L of fluid without any improvement in her heart rate. This is her baseline. She continues to be suicidal. Patient is medically clear Critical Care Time <Mauricio Hall DO - Last Filed: 05/28/22 02:03> Critical Care Time Critical Care Time: Yes Total Critical Care Time: 45 Attestation: The high probability of a clinically significant, sudden or life threatening deterioration of the [Psych] system(s) required my full and direct attention, intervention and personal management. The aggregate critical care time was [45] minutes. This time is in addition to time spent performing reported procedures but includes the following: [x] Data Review and interpretation [x] Patient assessment and monitoring of vital signs [x] Documentation [x] Medication orders and management Discharge Plan Departure Patient Disposition: [facility] Clinical Impression: Suicidal ideation, Hx of sinus tachycardia Prescriptions: No Action paroxetine HCl 20 mg tablet 20 mg PO DAILY Qty: 30 2RF alprazolam 0.25 mg tablet 0.25 mg PO DAILY Qty: 4 0RF norethindrone ac-eth estradiol [ (21)] 1.5-30 mg-mcg tablet See Rx Instructions .ROUTE .COMPLEX Qty: 21 5RF Dose Instruction: TAKE 1 TABLET BY MOUTH DAILY Rx Instructions: TAKE 1 TABLET BY MOUTH DAILY Referrals: Liya Doherty [Primary Care Provider] -
[2022-05-26 19:18] LABS: Free T4, Direct Thyroxine 1.71 ng/dL (0.78-2.19)
--- NOTE | 2022-05-26 19:41 | CM.SWNOTE ---
CEREAL POPPER Assessment CEREAL POPPER - Regional Operations Manager Assessment CEREAL POPPER/Regional Operations Manager Assessment Time Spent with Patient Start date 05/26/22 Visit Start Time 16:00 End date 05/26/22 Visit End Time 16:15 Total time Care Management spent on 15 minutes patient visit-in minutes Mental Health Screening Include Onset, Duration, Intensity Presenting Problem Patient presents to ED via POV due to concern for dehydration, SI, and anxiety. Patient endorses she had thoughts and intent last night of using her ex's gun to kill self, patient states she has access to gun. Patient endorses she has had intrusive thoughts and anxiety since Monday and states she has not been able to eat or drink due to stress. Precipitating Event(s) Patient endorses she just started a new job and her sister and sister's son just moved in with her. Patient endorses her nephew got sick and she blames herself because her son was sick and nephew is in the hospital right now due to ongoing health issues. Patient endorses she does not feel like telling family about her intrusive thoughts because she does not want them to worry. Patient endorses she has an on /off relationship with her child's father and that can be stressful. Patient Strengths Patient presents to ED to seek help, patient is interested in voluntary tx, patient has good supports, Patient is interested in outpatient MH services Current Behavioral Health Provider(s) No current provider Include Facility, Provider, Ph. # Psych. Hx Mental Health and Chemical Patient has hx of Anxiety, Dependency Depression, Panic Disorder, Self harm and SI. Patient denies hx of substance use or ETOH use. Patient's PCP Dr. Covarrubias prescribes patient Paoxetine HCl 20mg and Alprazolam .25mg Family Hx of Behavioral Abuse Per EMR, patient has hx of trauma. Patient does not disclose. Psychiatric Hospitalizations (date(s)/ No hx. location) Psychosocial information & Support Patient is 27 y/o female who Systems resides with 2 y/o son in [place]. Patient endorses her sister and nephew just moved in with her and her mother resides nearby on [address]. Patient endorses she feels safe at home, but is concerned about sketchy neighbors. Patient endorses her mother is currently caring for her son, and mother knows patient is here. School/Work Patient works at [employer] Concerns Legal Matters - Outstanding Issues None reported Mental Status Orientation (Person/Place/Time) A/Ox4 Stated Mood stressed Affect (Congruent with Mood?) euthymic, tearful at times, full range, congruent with mood. Thought Content - Specify/Describe Patient endorses paranoia and Obsessions, Delusions, Hallucinations hx of catastrophizing and constantly worrying. Patient endorses hx of hearing whispers of people saying her name, patient states it last happened a few weeks ago. Patient endorses hx of visual and tactile hallucinations since she was a child. Patient endorses a few years ago she saw an owl man walk across the road and sometimes sees odd things out of the corner of her eye. Patient endorses that when she was a kid she remembers feels like someone was shaking her. Thought Processes (Airabrp-Zjbmxznc-Rmcl coherent Psgkqpho-Eslwcgbl-Wnkbfxkitq- Lslcoaovbpnkjg-Jqmhsom-Rrmnxbnqbaoy- Thought Blocking) Speech (Nyctal-Fmyw-Fugxdpk-Rapid-Soft- normal Loud-Pressured) Motor (Hgrbmq-Nmvescira-Fwbg-Other) normal Insight (Mtbt-Ukgq-Umpe/Limited) fair Judgement (Nkcl-Oqwp-Nhrq/Limited) fair Impulse Control (Adequate-Impaired) adequate Memory (Moeppnvsc-Ieqxqm-Mtapso, intact, not formally assessed Impaired-Intact) Concentration (Intact-Impaired) intact Attention (Intact-Impaired) intact Behavior (Appropriate-Inappropriate) appropriate Additional Comment Patient presents as calm, cooperative and communicative. Risk Assessment Suicidal Ideation (Plan) Yes Homicidal Ideation (Plan) No Comment Patient denies HI. Patient endorses hx of self harm and hx of SI. Patient endorses increase in SI in the last few days. Patient endorses thought and intent to use gun she had access to to kill self. Patient endorses current SI, but came to ED because hse is seeking help. Intervention Intervention CEREAL POPPER enters triage room to meet with patient, present in room is piercer operator. Patient endorses increase in SI in recent days with thoughts of plans. Patient endorses increase in stress and anxiety, patient states due to stress she has been unable to eat and drink. Patient endorsees current SI and states her plan last night was thoughts of using a gun she has access to. Patient endorses she is interested in voluntary inpatient hospitalization and outpatient . It is the opinion of this CEREAL POPPER that patient is appropriate for and will benefit from voluntary inpatient hospitalization for safety, crisis stabilization and medication management. CEREAL POPPER reviews the above with ED provider Dr. Beauchamp who indicates agreement and understanding. Plan RA Plan CEREAL POPPER to seek voluntary inpatient bed for patient upon medical clearance. Kenyetta Au, CIGAR HEAD HOLER
[2022-05-27 00:59] VITALS: BP 113/61; PULSE 125
[2022-05-27] MEDS: PARoxetine 20 MG TABLET PO (01:02)
[2022-05-27 03:05] VITALS: BP 115/64; PULSE 111; RESP 16; O2SAT 100
--- NOTE | 2022-05-27 06:02 | PC.NURSE ---
CNC MILL OPERATOR note: Was looking placement for patient. [facility]: 8512- Spoke to [facility]? Faxed over an info packet. Said they'd review [facility]: [id number]- Spoke to [facility]. Said they have beds. Did some intake questions. Asked for a packet to be faxed over. Sent over a packet and said they'd review. Left a message at [facility]
[2022-05-27 06:09] VITALS: PULSE 120; RESP 16; O2SAT 100
--- NOTE | 2022-05-27 07:41 | PC.NURSE ---
report received, pt is currently asleep in room. chest rise and fall seen
[2022-05-27 08:40] VITALS: BP 113/62; PULSE 121; RESP 18; TEMP 36.7; O2SAT 99
--- NOTE | 2022-05-27 09:07 | PC.NURSE ---
pt is awake, given breakfast.
--- NOTE | 2022-05-27 12:06 | CM.SWNOTE ---
Per ED MD, pt has been accepted at [facility] for voluntary Inpt MH tx and transport scheduled for 1300 today and pt remains calm and cooperative. ALICE Lilly
[2022-05-27 13:41] VITALS: BP 111/67; PULSE 102; RESP 18; O2SAT 98
--- NOTE | 2022-05-27 13:48 | PC.NURSE ---
This nurse gave report on this patient to EMT Tina from [facility]. This Nurse gave report to HA Alcala at [facility] prior to the patient leaving the facility. This RN gave both individuals that were given report this Emergency room phone number for followup questions. This RN gave [facility] crew all belongings of the patient.
== END 2022-05-27 13:45 | disposition short-term general hospital (02) ==
PROVIDERS: Emergency Medicine; Emergency Provider Emergency Medicine; PCP Physician Assistant Medical
DX: R45.851 Suicidal ideations (principal); R00.0 Tachycardia, unspecified; Z20.822 Contact with and (suspected) exposure to COVID-19
CPT/HCPCS: 71045; 71275; 80053; 80305; 80320; 80329; 81003; 81015; 81025; 82550; 83880; 84439; 84443; 84484; 85025; 85379; 87635; 93005; 93010; 99285; C9803; G0480; Q9967

== ENCOUNTER 2022-11-28 10:09 | Emergency (ER) | payer BC, OTHER, SELFPAY ==
[2022-11-28 10:18] VITALS: BP 122/78; PULSE 99; RESP 14; TEMP 36.7; O2SAT 99; BMI 30.1
--- NOTE | 2022-11-28 10:23 | DI.RAD.S_ITS ---
PROCEDURE: XR CHEST 1V INDICATIONS: chest pain TECHNIQUE: One view of the chest was acquired. COMPARISON: [facility], CR, XR CHEST 1V, 05/26/2022, 16:27. FINDINGS: Surgical changes and devices: None. Lungs and pleura: Lungs are clear. No pleural effusions or pneumothorax. Mediastinum: Mediastinal contours appear normal. Heart size is normal. Bones and chest wall: No suspicious bony lesions. Overlying soft tissues appear unremarkable. IMPRESSION: No acute cardiopulmonary abnormality. Approved by: Rajeev Schumacher M.D. on 11/28/2022 at 12:06
[2022-11-28 10:50] LABS: Add Manual Diff / Slide Review NO; Basophils Absolute Auto 0 /uL (0-100); Basophils Percent Auto 0.4 % (0-2); Eosinophils Absolute Auto 0 /uL (0-450); Eosinophils Percent Auto 0.4 % (2-4); Hematocrit 41.8 % (36-46); Lymphocytes Absolute Auto 1100 /uL (1100-4500); Lymphocytes Percent Auto 11.1 % (25-40); Mean Corpuscular HGB Conc 33.6 % (30-36); Mean Corpuscular Hemoglobin 28.5 PG (26-34); Mean Corpuscular Volume 84.9 fL (80-100); Monocytes Absolute Auto 400 /uL (0-900); Monocytes Percent Auto 4.5 % (3-14); Neutrophils Absolute Auto 8300 /uL (1500-7000); Neutrophils Percent Auto 83.6 % (50-75); Platelet Count 258 X10^3/uL (150-400); Red Blood Cell Count 4.92 X10^6/uL (4.0-5.2); White Blood Cell Count 9.9 X10^3/uL (4.5-11.0)
[2022-11-28 10:51] LABS: Prothrombin Time 11.7 SECONDS (10.1-12.7)
[2022-11-28 10:54] LABS: PTT Partial Thromboplastin Tim 30 SECONDS (26-36)
[2022-11-28 10:57] LABS: Alanine Aminotransferase 18 IU/L (<35); Albumin 4.1 g/dL (3.5-5.0); Albumin Globulin Ratio 1.3 (1.0-2.8); Alkaline Phosphatase 83 U/L (38-126); Aspartate Aminotransferase 21 IU/L (14-36); BUN Creatinine Ratio 11.9 (6-22); Bilirubin Total 0.7 mg/dL (0.2-1.3); Blood Urea Nitrogen 8 mg/dL (7-17); Calcium 8.6 mg/dL (8.4-10.2); Carbon Dioxide 21 mmol/L (22-32); Chloride 106 mmol/L (98-107); Creatine Kinase 75 U/L (30-135); Estimated Glomerular Filt Rate > 60 mL/min (>60); Globulin 3.2 g/dL (1.7-4.1); Glucose 103 mg/dL (70-100); HEMOLYSIS < 15 (0-50); Lipase 64 U/L (23-300); Potassium 3.8 mmol/L (3.4-5.1); Sodium 136 mmol/L (137-145); Total Protein 7.3 g/dL (6.3-8.2)
[2022-11-28 11:08] LABS: Troponin I < 0.012 ng/mL (0.01-0.034)
[2022-11-28 11:28] LABS: TSH w/ Reflex to FT4 1.53 uIU/mL (0.47-4.68)
[2022-11-28 12:15] VITALS: BP 117/66; PULSE 102; RESP 16; O2SAT 99
[2022-11-28 12:29] LABS: D Dimer 1272 ng/ml (<500)
--- NOTE | 2022-11-28 12:59 | DI.CT.S_ITS ---
PROCEDURE: CT ANGIO CHEST PE PROTOCOL INDICATIONS: Chest pain, + dimer TECHNIQUE: After the administration of intravenous contrast, 2 mm thick sections acquired from the pulmonary apices to the posterior costophrenic angles. 3-dimensional maximum intensity projection (MIP) coronal and sagittal reformats were then acquired through the thorax. For radiation dose reduction, the following was used: automated exposure control, adjustment of mA and/or kV according to patient size. COMPARISON: [facility], CT, CT ANGIO CHEST PE PROTOCOL, 05/26/2022, 18:51. FINDINGS: Image quality: Excellent. Pulmonary arteries: Pulmonary arteries are normal in size, and demonstrate no intraluminal filling defects to suggest central pulmonary embolism. Lungs and pleura: Lungs are clear. No pleural effusions or pneumothorax. Central and peripheral airways are patent. Mediastinum: Heart size is normal, without pericardial effusion. No mediastinal or hilar adenopathy. Thoracic aorta is normal in caliber and enhancement. Esophagus is normal in caliber, without hiatal hernia. Bones and chest wall: No suspicious bony lesions. Ribs and thoracic spine appear intact throughout. Thyroid gland is within normal limits. No axillary or supraclavicular adenopathy. Abdomen: Visualized upper abdominal solid organs appear normal in the early arterial phase of enhancement. IMPRESSION: 1. No acute process. 2. No pulmonary embolus. Dictated by: Marcie Hawkins M.D. on 11/28/2022 at 13:45 Approved by: Marcie Hawkins M.D. on 11/28/2022 at 13:47
[2022-11-28 13:41] LABS: NT-proBNP (BNP-Adult 18+) 58 pg/mL (<125); Troponin I < 0.012 ng/mL (0.01-0.034)
[2022-11-28 14:10] LABS: Ictotest Urine Negative (Negative)
[2022-11-28 14:13] LABS: RBC Urine None Seen (0-5/HPF)
[2022-11-28 14:14] LABS: Bacteria Urine Few (2-10); Culture Indicated Urine Specimen Cultured; Squamous Epithelial Cell Urine 1-5 /HPF (0-5/HPF); WBC Urine 1-5/HPF (0-5/HPF)
--- NOTE | 2022-11-28 14:23 | DI.US.S_ITS ---
PROCEDURE: US PERIPH VENOUS LOW EXTREM BI INDICATIONS: +dimer; - CT PE TECHNIQUE: Real-time imaging, as well as color and pulse Doppler interrogation, were performed of the deep veins of both legs from the inguinal ligament to the popliteal fossa, with documentation of the visualized calf veins. COMPARISON: None. FINDINGS: Right: The common femoral, femoral, popliteal, and the visualized calf veins are normally compressible, and free of intraluminal thrombus. Color and pulse Doppler demonstrate normal phasic intravascular flow. There is normal augmentation response to distal compression maneuver. Left: The common femoral, femoral, popliteal, and the visualized calf veins are normally compressible, and free of intraluminal thrombus. Color and pulse Doppler demonstrate normal phasic intravascular flow. There is normal augmentation response to distal compression maneuver. IMPRESSION: No findings of deep venous thrombosis in either lower extremity. Dictated by: Virgil Jones M.D. on 11/28/2022 at 14:09 Approved by: Virgil Jones M.D. on 11/28/2022 at 14:09
[2022-11-28 14:30] VITALS: BP 136/69; PULSE 98; RESP 16; O2SAT 99
[2022-11-28 15:32] VITALS: BP 111/69; PULSE 98; RESP 12; O2SAT 100
--- NOTE | 2022-11-28 19:14 | ED_ITS ---
HPI - Chest Pain <Gudelia Heath PA-C - Last Filed: 11/28/22 19:24> General Chief Complaint: Chest Pain Stated Complaint: radiating chest pain and palpatations Time Seen by Provider: 11/28/22 11:02 Source: patient Mode of arrival: Ambulatory Limitations: no limitations History of Present Illness HPI narrative: 27-year-old female with past medical history anxiety and depression presents to the ED with 1 day of chest discomfort. Patient states that she is having trouble taking a full breath due to the pain. Patient denies fever, chills, nausea, vomiting, abdominal pain, lightheadedness, dizziness, syncope. Patient endorses palpitations, and states that she is had years of palpitations which has not been worked up thus far.. In the ED, patient states that she is feeling better. Patient does state that her anxiety has been somewhat worse recently. Patient is on oral contraception, but no history of blood clots. Related Data Previous Rx's Medication Instructions Recorded hydroxyzine HCl 25 mg tablet 25 mg PO TID PRN anxiety #30 tabs 07/14/22 propranolol 10 mg tablet 10 mg PO BID #60 tabs 07/18/22 trazodone 50 mg tablet 50 mg PO BEDTIME PRN insomnia #30 08/11/22 tabs norethindrone acetate 1.5 See Rx Instructions .Route 08/22/22 mg-ethinyl estradiol 30 mcg tablet .COMPLEX #63 tabs (June) paroxetine HCl 40 mg tablet 40 mg PO DAILY #90 tabs 09/27/22 Allergies Allergy/AdvReac Type Severity Reaction Status Date / Time No Known Drug Allergies Allergy Verified 09/27/22 10:13 Review of Systems <Gudelia Heath PA-C - Last Filed: 11/28/22 19:24> Review of Systems ROS Unobtainable: All systems reviewed & are unremarkable except as noted in HPI and below Constitutional Constitutional: Denies chills, Denies fatigue, Denies fever(s), Denies frequent falls, Denies lethargy and Denies weakness Eyes Eyes: Denies change in vision, Denies eye discharge, Denies irritation and Denies loss of vision ENT Ears, Nose, Mouth, and Throat: Denies change in voice, Denies dizziness, Denies neck pain, Denies sore throat and Denies throat swelling Cardiovascular Cardiovascular: Reports chest pain, Denies irregular heart rhythm, Denies lightheadedness, Reports palpitations, Reports dyspnea, Denies dyspnea on exertion and Denies orthopnea Respiratory Respiratory: Denies cough, Reports dyspnea, Denies dyspnea on exertion and Denies wheezing Gastrointestinal Gastrointestinal: Denies abdominal pain, Denies change in bowel habits, Denies diarrhea, Denies nausea and Denies vomiting Genitourinary Genitourinary: Denies hematuria, Denies flank pain, Denies urinary incontinence and Denies urinary urgency Musculoskeletal Musculoskeletal: Denies back pain, Denies muscle weakness, Denies neck pain, Denies numbness and Denies tingling Integumentary/Breasts Skin/Breast: Denies pruritus, Denies erythema, Denies rash and Denies wounds Neurologic Neurologic: Denies behavioral changes, Denies confusion, Denies dizziness, Denies frequent falls, Denies loss of vision, Denies numbness, Denies tingling and Denies weakness Psychiatric Psychiatric: Denies anxiety, Denies behavioral changes, Denies confusion, Denies depression, Denies homicidal ideation and Denies suicidal ideation Endocrine Endocrine: Denies fatigue, Denies flushing and Reports palpitations Hematologic/Lymphatic Hematologic/Lymphatic: Denies easy bruising Allergic/Immunologic Allergic/Immunologic: Denies urticaria, Denies throat swelling and Denies wheezing Patient History <Gudelia Heath PA-C - Last Filed: 11/28/22 19:24> Medical History Anxiety and depression (~2014) Panic disorder Trauma Surgical History H/O wisdom tooth extraction (~2014) S/P Family History Father No problems noted. Mother Depression Grandfather Congestive heart failure History of open heart surgery Grandmother Congestive heart failure History of open heart surgery Grandfather No problems noted. 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 needs: No Smoking Status: Never smoker second hand exposure: No alcohol intake: former substance use type: does not use Smoking Status: Never smoker alcohol intake frequency: 0-2 drinks per day Substance Use Type: does not use Exam <NICK Hogue Last Filed: 11/28/22 19:24> Narrative Exam Narrative: Const General:?cooperative, healthy appearing and comfortable [facility] Head:?normal to inspection Ears:?hearing grossly normal bilaterally Nose:?external nose normal Face and sinus:?normal facial exam and sinuses nontender Mouth:?oral mucosae normal Throat:?posterior oropharynx normal Eyes General:?appearance normal, both eyes and all related structures Neck Neck:?normal visual inspection and no lymphadenopathy noted Resp Effort & Inspection:?normal respiratory effort Auscultation:?clear to auscultation bilaterally Cardio Rate:? Tachycardic Rhythm:?regular rhythm Neuro General:?patient alert, patient awake and patient oriented x3 Initial Vital Signs Initial Vital Signs: Vital Signs Temperature 98.1 F 11/28/22 10:18 Pulse Rate 99 H 11/28/22 10:18 Respiratory Rate 14 11/28/22 10:18 Blood Pressure 122/78 11/28/22 10:18 Pulse Oximetry 99 11/28/22 10:18 Oxygen Delivery Method Room Air 11/28/22 10:18 <Hilary Manning DO - Last Filed: 11/29/22 07:41> Initial Vital Signs Initial Vital Signs: Vital Signs Temperature 98.1 F 11/28/22 10:18 Pulse Rate 99 H 11/28/22 10:18 Respiratory Rate 14 11/28/22 10:18 Blood Pressure 122/78 11/28/22 10:18 Pulse Oximetry 99 11/28/22 10:18 Oxygen Delivery Method Room Air 11/28/22 10:18 Course <NICK Hogue Last Filed: 11/28/22 19:24> Orders Ordered: ED Orders 11/28/22 10:23 XR chest 1V Stat 11/28/22 10:36 Complete Blood Count AUTO DIFF Stat Comprehensive Metabolic Panel Stat D Dimer Stat Lipase Stat Magnesium Stat PTT Partial Thromboplastin Luis Stat Prothrombin Time INR Stat TSH w/ Reflex to FT4 Stat Troponin & CK Cardiac Panel Stat 11/28/22 10:40 EKG-12 Lead Stat 11/28/22 12:59 CT angio chest PE protocol Stat 11/28/22 13:07 BNP [NT-proBNP (BNP-Adult 18+)] Stat Troponin I Stat 11/28/22 13:44 Ictotest Urine Stat Urine Culture Stat Urine Microscopic Stat 11/28/22 14:23 US periph venous low extrem bi Stat Vital Signs Vital signs: Vital Signs - 8 hr 11/28/22 12:15 11/28/22 14:30 11/28/22 15:32 Pulse Rate 102 H 98 H 98 H Respiratory Rate 16 16 12 Blood Pressure 117/66 136/69 111/69 Pulse Oximetry 99 99 100 Oxygen Delivery Method Room Air Room Air Room Air <Hilary Manning DO - Last Filed: 11/29/22 07:41> Orders Ordered: ED Orders 11/28/22 10:23 XR chest 1V Stat 11/28/22 10:36 Complete Blood Count AUTO DIFF Stat Comprehensive Metabolic Panel Stat D Dimer Stat Lipase Stat Magnesium Stat PTT Partial Thromboplastin Luis Stat Prothrombin Time INR Stat TSH w/ Reflex to FT4 Stat Troponin & CK Cardiac Panel Stat 11/28/22 10:40 EKG-12 Lead Stat 11/28/22 12:59 CT angio chest PE protocol Stat 11/28/22 13:07 BNP [NT-proBNP (BNP-Adult 18+)] Stat Troponin I Stat 11/28/22 13:44 Ictotest Urine Stat Urine Culture Stat Urine Microscopic Stat 11/28/22 14:23 US periph venous low extrem bi Stat Vital Signs Vital signs: Vital Signs - 8 hr 11/28/22 12:15 11/28/22 14:30 11/28/22 15:32 Pulse Rate 102 H 98 H 98 H Respiratory Rate 16 16 12 Blood Pressure 117/66 136/69 111/69 Pulse Oximetry 99 99 100 Oxygen Delivery Method Room Air Room Air Room Air MDM - Chest Pain <Gudelia Heath PA-C - Last Filed: 11/28/22 19:24> Lab Data 11/28/22 10:36 11/28/22 10:36 Labs: Lab Results 11/28/22 11/28/22 11/28/22 Range/Units 10:36 10:36 10:36 WBC 9.9 (4.5-11.0) X10^3/uL RBC 4.92 (4.0-5.2) X10^6/uL Hgb 14.0 (12.0-16.0) g/dL Hct 41.8 (36-46) % MCV 84.9 (80-100) fL MCH 28.5 (26-34) PG MCHC 33.6 (30-36) % RDW 14.0 (11.6-14.8) % Plt Count 258 (150-400) X10^3/uL Neut % (Auto) 83.6 H (50-75) % Lymph % (Auto) 11.1 L (25-40) % [place] % (Auto) 4.5 (3-14) % Eos % (Auto) 0.4 L (2-4) % Baso % (Auto) 0.4 (0-2) % Neut # (Auto) 8300 H (5293-6696) /uL Lymph # (Auto) 1100 (3263-7226) /uL [place] # (Auto) 400 (0-900) /uL Eos # (Auto) 0 (0-450) /uL Baso # (Auto) 0 (0-100) /uL PT 11.7 (10.1-12.7) SECONDS INR 1.0 (0.9-1.3) APTT 30 (26-36) SECONDS D-Dimer (<500) ng/ml Sodium 136 L (137-145) mmol/L Potassium 3.8 (3.4-5.1) mmol/L Chloride 106 (98-107) mmol/L Carbon Dioxide 21 L (22-32) mmol/L BUN 8 (7-17) mg/dL Creatinine 0.67 (0.52-1.04) mg/dL Estimated GFR > 60 (>60) mL/min BUN/Creatinine Ratio 11.9 (6-22) Glucose 103 H (70-100) mg/dL Calcium 8.6 (8.4-10.2) mg/dL Magnesium 2.0 (1.6-2.3) mg/dL Total Bilirubin 0.7 (0.2-1.3) mg/dL AST 21 (14-36) IU/L ALT 18 (<35) IU/L Alkaline Phosphatase 83 (38-126) U/L Total Creatine Kinase 75 (30-135) U/L Troponin I < 0.012 (0.01-0.034) ng/mL NT-Pro-B Natriuret Pep (<125) pg/mL Total Protein 7.3 (6.3-8.2) g/dL Albumin 4.1 (3.5-5.0) g/dL Globulin 3.2 (1.7-4.1) g/dL Albumin/Globulin Ratio 1.3 (1.0-2.8) Lipase 64 (23-300) U/L TSH (0.47-4.68) uIU/mL Ur Bilirubin Confirm (Negative) Urine RBC (0-5/HPF) Urine WBC (0-5/HPF) Ur Squamous Epith Cells (0-5/HPF) Urine Bacteria (None) Ur Culture Indicated? 11/28/22 11/28/22 11/28/22 Range/Units 10:36 10:36 13:07 WBC (4.5-11.0) X10^3/uL RBC (4.0-5.2) X10^6/uL Hgb (12.0-16.0) g/dL Hct (36-46) % MCV (80-100) fL MCH (26-34) PG MCHC (30-36) % RDW (11.6-14.8) % Plt Count (150-400) X10^3/uL Neut % (Auto) (50-75) % Lymph % (Auto) (25-40) % [place] % (Auto) (3-14) % Eos % (Auto) (2-4) % Baso % (Auto) (0-2) % Neut # (Auto) (1744-9400) /uL Lymph # (Auto) (5397-2729) /uL [place] # (Auto) (0-900) /uL Eos # (Auto) (0-450) /uL Baso # (Auto) (0-100) /uL PT (10.1-12.7) SECONDS INR (0.9-1.3) APTT (26-36) SECONDS D-Dimer 1272 H (<500) ng/ml Sodium (137-145) mmol/L Potassium (3.4-5.1) mmol/L Chloride (98-107) mmol/L Carbon Dioxide (22-32) mmol/L BUN (7-17) mg/dL Creatinine (0.52-1.04) mg/dL Estimated GFR (>60) mL/min BUN/Creatinine Ratio (6-22) Glucose (70-100) mg/dL Calcium (8.4-10.2) mg/dL Magnesium (1.6-2.3) mg/dL Total Bilirubin (0.2-1.3) mg/dL AST (14-36) IU/L ALT (<35) IU/L Alkaline Phosphatase (38-126) U/L Total Creatine Kinase (30-135) U/L Troponin I < 0.012 (0.01-0.034) ng/mL NT-Pro-B Natriuret Pep 58 (<125) pg/mL Total Protein (6.3-8.2) g/dL Albumin (3.5-5.0) g/dL Globulin (1.7-4.1) g/dL Albumin/Globulin Ratio (1.0-2.8) Lipase (23-300) U/L TSH 1.53 (0.47-4.68) uIU/mL Ur Bilirubin Confirm (Negative) Urine RBC (0-5/HPF) Urine WBC (0-5/HPF) Ur Squamous Epith Cells (0-5/HPF) Urine Bacteria (None) Ur Culture Indicated? 11/28/22 Range/Units 13:44 WBC (4.5-11.0) X10^3/uL RBC (4.0-5.2) X10^6/uL Hgb (12.0-16.0) g/dL Hct (36-46) % MCV (80-100) fL MCH (26-34) PG MCHC (30-36) % RDW (11.6-14.8) % Plt Count (150-400) X10^3/uL Neut % (Auto) (50-75) % Lymph % (Auto) (25-40) % [place] % (Auto) (3-14) % Eos % (Auto) (2-4) % Baso % (Auto) (0-2) % Neut # (Auto) (0191-4061) /uL Lymph # (Auto) (5897-9060) /uL [place] # (Auto) (0-900) /uL Eos # (Auto) (0-450) /uL Baso # (Auto) (0-100) /uL PT (10.1-12.7) SECONDS INR (0.9-1.3) APTT (26-36) SECONDS D-Dimer (<500) ng/ml Sodium (137-145) mmol/L Potassium (3.4-5.1) mmol/L Chloride (98-107) mmol/L Carbon Dioxide (22-32) mmol/L BUN (7-17) mg/dL Creatinine (0.52-1.04) mg/dL Estimated GFR (>60) mL/min BUN/Creatinine Ratio (6-22) Glucose (70-100) mg/dL Calcium (8.4-10.2) mg/dL Magnesium (1.6-2.3) mg/dL Total Bilirubin (0.2-1.3) mg/dL AST (14-36) IU/L ALT (<35) IU/L Alkaline Phosphatase (38-126) U/L Total Creatine Kinase (30-135) U/L Troponin I (0.01-0.034) ng/mL NT-Pro-B Natriuret Pep (<125) pg/mL Total Protein (6.3-8.2) g/dL Albumin (3.5-5.0) g/dL Globulin (1.7-4.1) g/dL Albumin/Globulin Ratio (1.0-2.8) Lipase (23-300) U/L TSH (0.47-4.68) uIU/mL Ur Bilirubin Confirm Negative (Negative) Urine RBC None seen (0-5/HPF) Urine WBC 1-5/hpf (0-5/HPF) Ur Squamous Epith Cells 1-5 /hpf (0-5/HPF) Urine Bacteria Few (2-10) H (None) Ur Culture Indicated? Specimen cultured Point of Care Testing Test Results Negative Urine Dip Bedside Urine Glucose Negative Bedside Urine Bilirubin + 1 Bedside Urine Ketone +/- 5 Urine Specific [place] 1.005 Bedside Urine Occult Blood - Negative Bedside Urine pH 8.5 Bedside Urine Protein +/- 15 Bedside Urine Urobilinogen - Negative Bedside Urine Nitrite - Negative Bedside Urine Leukocytes +/- 15 Esterase MDM Narrative Medical decision making narrative: 27-year-old female with past medical history anxiety and depression presents to the ED with 1 day of chest discomfort. Concern for ACS versus PE versus thyroid derangements versus other. Obtained labs, BNP, troponin, chest x-ray, EKG, D- dimer. EKG with tachycardia but no acute ST T changes. chest x-ray with no acute findings. Troponin and BNP within normal limits. D-dimer elevated to 1272. CT chest without PE. Bilateral lower extremity DVT studies were obtained with no acute findings. Counseled patient about an elevated D-dimer and that oral contraceptives can increase risk of blood clots. Advise cessation of oral contraceptives, follow-up with OBGYN for alternative forms of contraception. Patient's symptoms today could be caused due to anxiety. ED return precautions were discussed with patient. Patient verbalized understanding. Medical records reviewed: Yes <Hilary Manning DO - Last Filed: 11/29/22 07:41> Lab Data Labs: Lab Results 11/28/22 11/28/22 11/28/22 Range/Units 10:36 10:36 10:36 WBC 9.9 (4.5-11.0) X10^3/uL RBC 4.92 (4.0-5.2) X10^6/uL Hgb 14.0 (12.0-16.0) g/dL Hct 41.8 (36-46) % MCV 84.9 (80-100) fL MCH 28.5 (26-34) PG MCHC 33.6 (30-36) % RDW 14.0 (11.6-14.8) % Plt Count 258 (150-400) X10^3/uL Neut % (Auto) 83.6 H (50-75) % Lymph % (Auto) 11.1 L (25-40) % [place] % (Auto) 4.5 (3-14) % Eos % (Auto) 0.4 L (2-4) % Baso % (Auto) 0.4 (0-2) % Neut # (Auto) 8300 H (0067-5370) /uL Lymph # (Auto) 1100 (0898-9485) /uL [place] # (Auto) 400 (0-900) /uL Eos # (Auto) 0 (0-450) /uL Baso # (Auto) 0 (0-100) /uL PT 11.7 (10.1-12.7) SECONDS INR 1.0 (0.9-1.3) APTT 30 (26-36) SECONDS D-Dimer (<500) ng/ml Sodium 136 L (137-145) mmol/L Potassium 3.8 (3.4-5.1) mmol/L Chloride 106 (98-107) mmol/L Carbon Dioxide 21 L (22-32) mmol/L BUN 8 (7-17) mg/dL Creatinine 0.67 (0.52-1.04) mg/dL Estimated GFR > 60 (>60) mL/min BUN/Creatinine Ratio 11.9 (6-22) Glucose 103 H (70-100) mg/dL Calcium 8.6 (8.4-10.2) mg/dL Magnesium 2.0 (1.6-2.3) mg/dL Total Bilirubin 0.7 (0.2-1.3) mg/dL AST 21 (14-36) IU/L ALT 18 (<35) IU/L Alkaline Phosphatase 83 (38-126) U/L Total Creatine Kinase 75 (30-135) U/L Troponin I < 0.012 (0.01-0.034) ng/mL NT-Pro-B Natriuret Pep (<125) pg/mL Total Protein 7.3 (6.3-8.2) g/dL Albumin 4.1 (3.5-5.0) g/dL Globulin 3.2 (1.7-4.1) g/dL Albumin/Globulin Ratio 1.3 (1.0-2.8) Lipase 64 (23-300) U/L TSH (0.47-4.68) uIU/mL Ur Bilirubin Confirm (Negative) Urine RBC (0-5/HPF) Urine WBC (0-5/HPF) Ur Squamous Epith Cells (0-5/HPF) Urine Bacteria (None) Ur Culture Indicated? 11/28/22 11/28/22 11/28/22 Range/Units 10:36 10:36 13:07 WBC (4.5-11.0) X10^3/uL RBC (4.0-5.2) X10^6/uL Hgb (12.0-16.0) g/dL Hct (36-46) % MCV (80-100) fL MCH (26-34) PG MCHC (30-36) % RDW (11.6-14.8) % Plt Count (150-400) X10^3/uL Neut % (Auto) (50-75) % Lymph % (Auto) (25-40) % [place] % (Auto) (3-14) % Eos % (Auto) (2-4) % Baso % (Auto) (0-2) % Neut # (Auto) (2841-0968) /uL Lymph # (Auto) (8810-1344) /uL [place] # (Auto) (0-900) /uL Eos # (Auto) (0-450) /uL Baso # (Auto) (0-100) /uL PT (10.1-12.7) SECONDS INR (0.9-1.3) APTT (26-36) SECONDS D-Dimer 1272 H (<500) ng/ml Sodium (137-145) mmol/L Potassium (3.4-5.1) mmol/L Chloride (98-107) mmol/L Carbon Dioxide (22-32) mmol/L BUN (7-17) mg/dL Creatinine (0.52-1.04) mg/dL Estimated GFR (>60) mL/min BUN/Creatinine Ratio (6-22) Glucose (70-100) mg/dL Calcium (8.4-10.2) mg/dL Magnesium (1.6-2.3) mg/dL Total Bilirubin (0.2-1.3) mg/dL AST (14-36) IU/L ALT (<35) IU/L Alkaline Phosphatase (38-126) U/L Total Creatine Kinase (30-135) U/L Troponin I < 0.012 (0.01-0.034) ng/mL NT-Pro-B Natriuret Pep 58 (<125) pg/mL Total Protein (6.3-8.2) g/dL Albumin (3.5-5.0) g/dL Globulin (1.7-4.1) g/dL Albumin/Globulin Ratio (1.0-2.8) Lipase (23-300) U/L TSH 1.53 (0.47-4.68) uIU/mL Ur Bilirubin Confirm (Negative) Urine RBC (0-5/HPF) Urine WBC (0-5/HPF) Ur Squamous Epith Cells (0-5/HPF) Urine Bacteria (None) Ur Culture Indicated? 11/28/22 Range/Units 13:44 WBC (4.5-11.0) X10^3/uL RBC (4.0-5.2) X10^6/uL Hgb (12.0-16.0) g/dL Hct (36-46) % MCV (80-100) fL MCH (26-34) PG MCHC (30-36) % RDW (11.6-14.8) % Plt Count (150-400) X10^3/uL Neut % (Auto) (50-75) % Lymph % (Auto) (25-40) % [place] % (Auto) (3-14) % Eos % (Auto) (2-4) % Baso % (Auto) (0-2) % Neut # (Auto) (5922-3824) /uL Lymph # (Auto) (5866-5010) /uL [place] # (Auto) (0-900) /uL Eos # (Auto) (0-450) /uL Baso # (Auto) (0-100) /uL PT (10.1-12.7) SECONDS INR (0.9-1.3) APTT (26-36) SECONDS D-Dimer (<500) ng/ml Sodium (137-145) mmol/L Potassium (3.4-5.1) mmol/L Chloride (98-107) mmol/L Carbon Dioxide (22-32) mmol/L BUN (7-17) mg/dL Creatinine (0.52-1.04) mg/dL Estimated GFR (>60) mL/min BUN/Creatinine Ratio (6-22) Glucose (70-100) mg/dL Calcium (8.4-10.2) mg/dL Magnesium (1.6-2.3) mg/dL Total Bilirubin (0.2-1.3) mg/dL AST (14-36) IU/L ALT (<35) IU/L Alkaline Phosphatase (38-126) U/L Total Creatine Kinase (30-135) U/L Troponin I (0.01-0.034) ng/mL NT-Pro-B Natriuret Pep (<125) pg/mL Total Protein (6.3-8.2) g/dL Albumin (3.5-5.0) g/dL Globulin (1.7-4.1) g/dL Albumin/Globulin Ratio (1.0-2.8) Lipase (23-300) U/L TSH (0.47-4.68) uIU/mL Ur Bilirubin Confirm Negative (Negative) Urine RBC None seen (0-5/HPF) Urine WBC 1-5/hpf (0-5/HPF) Ur Squamous Epith Cells 1-5 /hpf (0-5/HPF) Urine Bacteria Few (2-10) H (None) Ur Culture Indicated? Specimen cultured Point of Care Testing Test Results Negative Urine Dip Bedside Urine Glucose Negative Bedside Urine Bilirubin + 1 Bedside Urine Ketone +/- 5 Urine Specific [place] 1.005 Bedside Urine Occult Blood - Negative Bedside Urine pH 8.5 Bedside Urine Protein +/- 15 Bedside Urine Urobilinogen - Negative Bedside Urine Nitrite - Negative Bedside Urine Leukocytes +/- 15 Esterase ECG Data Interpretation: HELION[place]-sinus tachycardia rate 106 FL interval 114 QRS [address] changes similar to previous Discharge Plan Departure Patient Disposition: Home Clinical Impression: Chest pain Instructions: DI for Atypical Chest Pain Activity Restrictions/Additional Instructions: You were evaluated in the ED today for some chest pain. Your EKG, chest x-ray were normal. Your thyroid level is normal as well. The D-dimer value was elevated, which indicates an increased risk for blood clots. However, the CT scan of the chest as well as ultrasound of your lower extremities do not show blood clots, which is reassuring. The elevated D-dimer value does put you at increased risk for blood clots, it is therefore advisable that you stop your oral contraceptive pills which increase the risk of blood clots. Please follow- up with your OBGYN to discuss alternate forms of control. Return to the ED if you experience chest pain, shortness of breath, worsening symptoms. Prescriptions: No Action propranolol 10 mg tablet 10 mg PO BID Qty: 60 1RF hydroxyzine HCl 25 mg tablet 25 mg PO TID PRN (Reason: anxiety) Qty: 30 3RF paroxetine HCl 40 mg tablet 40 mg PO DAILY Qty: 90 3RF trazodone 50 mg tablet 50 mg PO BEDTIME PRN (Reason: insomnia) Qty: 30 3RF norethindrone ac-eth estradiol [June ()] 1.5-30 mg-mcg tablet See Rx Instructions .ROUTE .COMPLEX Qty: 63 3RF Dose Instruction: TAKE 1 TABLET BY MOUTH DAILY Rx Instructions: TAKE 1 TABLET BY MOUTH DAILY Referrals: Leilani Covarrubias DO [Primary Care Provider] - Stand Alone Forms: Patient Portal/API
== END 2022-11-28 15:35 | disposition home or self-care (01) ==
PROVIDERS: Emergency Medicine; Emergency Provider Student in an Organized Health Care Education/Training Program; PCP Family Medicine
DX: R07.9 Chest pain, unspecified (principal); R00.0 Tachycardia, unspecified
CPT/HCPCS: 36415; 71045; 71275; 80053; 81003; 81015; 81025; 82550; 83690; 83735; 83880; 84443; 84484; 85025; 85379; 85610; 85730; 87086; 93005; 93010; 93970; 99284; Q9967

== ENCOUNTER 2023-05-09 13:57 | Emergency (ER) | payer SELFPAY ==
[2023-05-09] VITALS (24 sets, daily range): BP systolic 87–122; BP diastolic 53–77; PULSE 66–94; RESP 11–29; TEMP 37.1; O2SAT 95–100; BMI 29.2
--- NOTE | 2023-05-09 14:16 | DI.RAD.S_ITS ---
PROCEDURE: XR CHEST 1V INDICATIONS: chest pain TECHNIQUE: One view of the chest was acquired. COMPARISON: [facility], CR, XR CHEST 1V, 11/28/2022, 10:53. FINDINGS: Surgical changes and devices: None. Lungs and pleura: Lungs are clear. No pleural effusions or pneumothorax. Mediastinum: Mediastinal contours appear normal. Heart size is normal. Bones and chest wall: No suspicious bony lesions. Overlying soft tissues appear unremarkable. IMPRESSION: No acute cardiopulmonary abnormality is seen. Dictated by: Shelly Amaya MD, PhD on 05/09/2023 at 15:32 Approved by: Shelly Amaya MD, PhD on 05/09/2023 at 15:32
[2023-05-09 15:15] LABS: Add Manual Diff / Slide Review NO; Basophils Absolute Auto 0 /uL (0-100); Basophils Percent Auto 0.3 % (0-2); Eosinophils Absolute Auto 0 /uL (0-450); Eosinophils Percent Auto 0.3 % (2-4); Hematocrit 41.5 % (36-46); Hemoglobin 13.9 g/dL (12.0-16.0); Lymphocytes Absolute Auto 1100 /uL (1100-4500); Lymphocytes Percent Auto 12.6 % (25-40); Mean Corpuscular HGB Conc 33.5 % (30-36); Mean Corpuscular Hemoglobin 28.1 PG (26-34); Mean Corpuscular Volume 83.9 fL (80-100); Monocytes Absolute Auto 400 /uL (0-900); Monocytes Percent Auto 4.6 % (3-14); Neutrophils Absolute Auto 7100 /uL (1500-7000); Neutrophils Percent Auto 82.2 % (50-75); Platelet Count 236 X10^3/uL (150-400); Red Blood Cell Count 4.95 X10^6/uL (4.0-5.2); Red Cell Distribution Width 14.6 % (11.6-14.8); White Blood Cell Count 8.6 X10^3/uL (4.5-11.0)
[2023-05-09 15:23] LABS: INR 1.1 (0.9-1.3); Prothrombin Time 12.1 SECONDS (9.4-12.5)
[2023-05-09 15:35] LABS: Alanine Aminotransferase 23 IU/L (<35); Albumin 4.3 g/dL (3.5-5.0); Albumin Globulin Ratio 1.4 (1.0-2.8); Alkaline Phosphatase 129 U/L (38-126); Aspartate Aminotransferase 36 IU/L (14-36); BUN Creatinine Ratio 16.4 (6-22); Bilirubin Total 0.7 mg/dL (0.2-1.3); Blood Urea Nitrogen 11 mg/dL (7-17); Calcium 9.1 mg/dL (8.4-10.2); Carbon Dioxide 22 mmol/L (22-32); Chloride 105 mmol/L (98-107); Creatine Kinase 55 U/L (30-135); Estimated Glomerular Filt Rate > 60 mL/min (>60); Glucose 109 mg/dL (70-100); HEMOLYSIS 20 (0-50); Lipase 60 U/L (23-300); Potassium 4.1 mmol/L (3.4-5.1); Sodium 136 mmol/L (137-145); Total Protein 7.3 g/dL (6.3-8.2)
[2023-05-09 15:46] LABS: Troponin I < 0.012 ng/mL (0.01-0.034)
[2023-05-09] MEDS: SODIUM CHLORIDE 0.9% 1,000 ML 1000 ML IV (16:00)
--- NOTE | 2023-05-09 18:29 | ED_ITS ---
HPI - Syncope General Chief Complaint: Syncope Stated Complaint: passed out, hit head Time Seen by Provider: 05/09/23 15:20 Source: patient Mode of arrival: Ambulatory Limitations: no limitations History of Present Illness HPI narrative: Patient comes to the ED today after a syncopal event. She has been under lot of stress changing jobs and also with a sick child at home vomiting frequently. The emesis of her child makes her feel very queasy and sick to her stomach. After she had been sitting for about 30 minutes she got up quickly and started to walk across the room and fell to the ground. No injury. She had not been feeling sick otherwise. She is fainted perhaps 3 or 4 times in her life. She does notice occasional chest palpitations but they were not associated with the event today. She has not been sick herself with fever or injury or chest pain. She does have intermittent shortness of breath over a long period of time that has no different today. No fever. No sick contacts. Again no head injury. She perceive no neurologic deficit right now. Related Data Previous Rx's Medication Instructions Recorded hydroxyzine HCl 25 mg tablet 25 mg PO TID PRN anxiety #30 tabs 07/14/22 propranolol 10 mg tablet 10 mg PO BID #60 tabs 07/18/22 trazodone 50 mg tablet 50 mg PO BEDTIME PRN insomnia #30 08/11/22 tabs norethindrone acetate 1.5 See Rx Instructions .Route 08/22/22 mg-ethinyl estradiol 30 mcg tablet .COMPLEX #63 tabs () paroxetine HCl 40 mg tablet 40 mg PO DAILY #90 tabs 09/27/22 Allergies Allergy/AdvReac Type Severity Reaction Status Date / Time No Known Drug Allergies Allergy Verified 05/09/23 14:14 Patient History Medical History Anxiety and depression (~2014) Panic disorder Trauma Surgical History H/O wisdom tooth extraction (~2014) S/P Family History Father No problems noted. Mother Depression Grandfather Congestive heart failure History of open heart surgery Grandmother Congestive heart failure History of open heart surgery Grandfather No problems noted. 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 HEAD: Atraumatic. Normocephalic. EYES: Sclera are clear without icterus. Extraocular movements are full. ENT: No rhinorrhea. Mouth exam is benign. NECK: Supple. Full range of motion. CARDIOVASCULAR: Normal rate and rhythm without murmur gallop or rub. RESPIRATORY: Clear to auscultation. Breath sounds equal bilaterally. No wheezes, rales, or rhonchi. GASTROINTESTINAL: Abdomen soft, non-tender, nondistended. EXTREMITIES: No edema, full range of motion. No obvious trauma. BACK: Normal inspection, no CVA tenderness. NEURO: Nonfocal examination, normal speech SKIN: No rash or erythema of visible areas PSYCH: Normally oriented. Normal range of affect. Appropriate behavior Patient is able to stand at the bedside. I checked orthostatic vitals and there is no significant orthostatic change in pulse or blood pressure. Initial Vital Signs Initial Vital Signs: Vital Signs Temperature 98.7 F 05/09/23 14:09 Pulse Rate 82 05/09/23 14:09 Respiratory Rate 18 05/09/23 14:09 Blood Pressure 96/57 L 05/09/23 14:09 Pulse Oximetry 98 05/09/23 14:09 Oxygen Delivery Method Room Air 05/09/23 14:09 Course Orders Ordered: ED Orders 05/09/23 14:16 XR chest 1V Stat EKG-12 Lead Stat 05/09/23 14:50 Complete Blood Count AUTO DIFF Stat Comprehensive Metabolic Panel Stat Lipase Stat Magnesium Stat Prothrombin Time INR Stat Troponin & CK Cardiac Panel Stat Discontinued Medications Sodium Chloride (Normal Saline 0.9%) 1,000 mls @ 1,000 mls/hr IV BOLUS ONE Stop: 05/09/23 16:19 Last Admin: 05/09/23 16:00 Dose: 1,000 mls/hr Documented By: DONOVAN Vital Signs Vital signs: Vital Signs - 8 hr 05/09/23 14:09 05/09/23 14:23 05/09/23 14:24 Temperature 98.7 F Pulse Rate 82 94 H Pulse Rate [Orthostatic Lying] Pulse Rate [Orthostatic Sitting] Pulse Rate [Orthostatic Standing] Respiratory Rate 18 Blood Pressure 96/57 L 105/65 Blood Pressure [Orthostatic Lying] Blood Pressure [Orthostatic Sitting] Blood Pressure [Orthostatic Standing] Pulse Oximetry 98 97 Oxygen Delivery Method Room Air 05/09/23 14:24 05/09/23 14:30 05/09/23 14:30 Temperature Pulse Rate 91 H 84 Pulse Rate [Orthostatic Lying] Pulse Rate [Orthostatic Sitting] Pulse Rate [Orthostatic Standing] Respiratory Rate Blood Pressure 94/59 L Blood Pressure [Orthostatic Lying] Blood Pressure [Orthostatic Sitting] Blood Pressure [Orthostatic Standing] Pulse Oximetry 96 97 Oxygen Delivery Method 05/09/23 14:50 05/09/23 14:50 05/09/23 15:02 Temperature Pulse Rate 82 84 Pulse Rate [Orthostatic Lying] Pulse Rate [Orthostatic Sitting] Pulse Rate [Orthostatic Standing] Respiratory Rate 16 Blood Pressure 98/60 Blood Pressure [Orthostatic Lying] Blood Pressure [Orthostatic Sitting] Blood Pressure [Orthostatic Standing] Pulse Oximetry 97 98 Oxygen Delivery Method 05/09/23 15:02 05/09/23 15:05 05/09/23 15:05 Temperature Pulse Rate 80 Pulse Rate [Orthostatic Lying] Pulse Rate [Orthostatic Sitting] Pulse Rate [Orthostatic Standing] Respiratory Rate 17 Blood Pressure 87/53 L 90/55 L Blood Pressure [Orthostatic Lying] Blood Pressure [Orthostatic Sitting] Blood Pressure [Orthostatic Standing] Pulse Oximetry 98 Oxygen Delivery Method 05/09/23 15:06 05/09/23 15:06 05/09/23 15:07 Temperature Pulse Rate 93 H Pulse Rate [Orthostatic Lying] Pulse Rate [Orthostatic Sitting] Pulse Rate [Orthostatic Standing] Respiratory Rate 29 H Blood Pressure 96/57 L 88/59 L Blood Pressure [Orthostatic Lying] Blood Pressure [Orthostatic Sitting] Blood Pressure [Orthostatic Standing] Pulse Oximetry 98 Oxygen Delivery Method 05/09/23 15:07 05/09/23 15:08 05/09/23 15:15 Temperature Pulse Rate 92 H Pulse Rate [Orthostatic Lying] 80 Pulse Rate [Orthostatic Sitting] 93 H Pulse Rate [Orthostatic Standing] 92 H Respiratory Rate 20 Blood Pressure 95/53 L Blood Pressure [Orthostatic Lying] 90/55 L Blood Pressure [Orthostatic Sitting] 96/57 L Blood Pressure [Orthostatic Standing] 88/59 L Pulse Oximetry 98 Oxygen Delivery Method 05/09/23 15:15 05/09/23 15:30 05/09/23 15:30 Temperature Pulse Rate 77 77 Pulse Rate [Orthostatic Lying] Pulse Rate [Orthostatic Sitting] Pulse Rate [Orthostatic Standing] Respiratory Rate 15 16 Blood Pressure 92/56 L Blood Pressure [Orthostatic Lying] Blood Pressure [Orthostatic Sitting] Blood Pressure [Orthostatic Standing] Pulse Oximetry 98 98 Oxygen Delivery Method 05/09/23 15:45 05/09/23 15:45 05/09/23 16:00 Temperature Pulse Rate 80 75 Pulse Rate [Orthostatic Lying] Pulse Rate [Orthostatic Sitting] Pulse Rate [Orthostatic Standing] Respiratory Rate 16 12 Blood Pressure 100/59 L Blood Pressure [Orthostatic Lying] Blood Pressure [Orthostatic Sitting] Blood Pressure [Orthostatic Standing] Pulse Oximetry 96 95 Oxygen Delivery Method 05/09/23 16:00 05/09/23 16:15 05/09/23 16:15 Temperature Pulse Rate 74 Pulse Rate [Orthostatic Lying] Pulse Rate [Orthostatic Sitting] Pulse Rate [Orthostatic Standing] Respiratory Rate 18 Blood Pressure 96/60 106/65 Blood Pressure [Orthostatic Lying] Blood Pressure [Orthostatic Sitting] Blood Pressure [Orthostatic Standing] Pulse Oximetry 96 Oxygen Delivery Method 05/09/23 16:30 05/09/23 16:30 05/09/23 16:45 Temperature Pulse Rate 76 Pulse Rate [Orthostatic Lying] Pulse Rate [Orthostatic Sitting] Pulse Rate [Orthostatic Standing] Respiratory Rate Blood Pressure 105/64 114/69 Blood Pressure [Orthostatic Lying] Blood Pressure [Orthostatic Sitting] Blood Pressure [Orthostatic Standing] Pulse Oximetry 97 Oxygen Delivery Method 05/09/23 16:45 05/09/23 17:00 05/09/23 17:00 Temperature Pulse Rate 81 84 Pulse Rate [Orthostatic Lying] Pulse Rate [Orthostatic Sitting] Pulse Rate [Orthostatic Standing] Respiratory Rate 11 L 12 Blood Pressure 121/77 Blood Pressure [Orthostatic Lying] Blood Pressure [Orthostatic Sitting] Blood Pressure [Orthostatic Standing] Pulse Oximetry 97 98 Oxygen Delivery Method 05/09/23 17:15 05/09/23 17:15 05/09/23 17:30 Temperature Pulse Rate 81 83 Pulse Rate [Orthostatic Lying] Pulse Rate [Orthostatic Sitting] Pulse Rate [Orthostatic Standing] Respiratory Rate 27 H 14 Blood Pressure 116/74 Blood Pressure [Orthostatic Lying] Blood Pressure [Orthostatic Sitting] Blood Pressure [Orthostatic Standing] Pulse Oximetry 97 98 Oxygen Delivery Method 05/09/23 17:30 Temperature Pulse Rate Pulse Rate [Orthostatic Lying] Pulse Rate [Orthostatic Sitting] Pulse Rate [Orthostatic Standing] Respiratory Rate Blood Pressure 122/75 Blood Pressure [Orthostatic Lying] Blood Pressure [Orthostatic Sitting] Blood Pressure [Orthostatic Standing] Pulse Oximetry Oxygen Delivery Method MDM - Syncope Lab Data 05/09/23 14:50 05/09/23 14:50 Labs: Lab Results 05/09/23 Range/Units 14:50 WBC 8.6 (4.5-11.0) X10^3/uL RBC 4.95 (4.0-5.2) X10^6/uL Hgb 13.9 (12.0-16.0) g/dL Hct 41.5 (36-46) % MCV 83.9 (80-100) fL MCH 28.1 (26-34) PG MCHC 33.5 (30-36) % RDW 14.6 (11.6-14.8) % Plt Count 236 (150-400) X10^3/uL Neut % (Auto) 82.2 H (50-75) % Lymph % (Auto) 12.6 L (25-40) % [place] % (Auto) 4.6 (3-14) % Eos % (Auto) 0.3 L (2-4) % Baso % (Auto) 0.3 (0-2) % Neut # (Auto) 7100 H (1631-1624) /uL Lymph # (Auto) 1100 (0596-3432) /uL [place] # (Auto) 400 (0-900) /uL Eos # (Auto) 0 (0-450) /uL Baso # (Auto) 0 (0-100) /uL PT 12.1 (9.4-12.5) SECONDS INR 1.1 (0.9-1.3) Sodium 136 L (137-145) mmol/L Potassium 4.1 (3.4-5.1) mmol/L Chloride 105 (98-107) mmol/L Carbon Dioxide 22 (22-32) mmol/L BUN 11 (7-17) mg/dL Creatinine 0.67 (0.52-1.04) mg/dL Estimated GFR > 60 (>60) mL/min BUN/Creatinine Ratio 16.4 (6-22) Glucose 109 H (70-100) mg/dL Calcium 9.1 (8.4-10.2) mg/dL Magnesium 2.0 (1.6-2.3) mg/dL Total Bilirubin 0.7 (0.2-1.3) mg/dL AST 36 (14-36) IU/L ALT 23 (<35) IU/L Alkaline Phosphatase 129 H (38-126) U/L Total Creatine Kinase 55 (30-135) U/L Troponin I < 0.012 (0.01-0.034) ng/mL Total Protein 7.3 (6.3-8.2) g/dL Albumin 4.3 (3.5-5.0) g/dL Globulin 3.0 (1.7-4.1) g/dL Albumin/Globulin Ratio 1.4 (1.0-2.8) Lipase 60 (23-300) U/L Point of Care Testing Test Results Negative Urine Dip Bedside Urine Glucose Negative Bedside Urine Bilirubin - Negative Bedside Urine Ketone +/- 5 Urine Specific [place] 1.020 Bedside Urine Occult Blood - Negative Bedside Urine pH 6.0 Bedside Urine Protein - Negative Bedside Urine Urobilinogen - Negative Bedside Urine Nitrite - Negative Bedside Urine Leukocytes - Negative Esterase ECG Data Interpretation: ECG shows sinus rhythm at 89 QTC is 430. This ECG is normal. MDM Narrative Medical decision making narrative: Well-appearing woman with a vasovagal syncope type event with no worrisome labs, ECG or physical exam findings. She is at baseline neurologically now. She has not orthostatic. I think home disposition is safe and appropriate. Discharge Plan Departure Patient Disposition: Home Clinical Impression: Vasovagal syncope Activity Restrictions/Additional Instructions: Thank you for trusting us with your care. Fortunately, no dangerous cause for fainting event was identified or suspected based on physical examination and ECG and laboratory data. If you faint again especially if it is associated with exertion or chest pain you should return to the ED right away, otherwise you should follow-up with your primary care provider to discuss further investigation may be warranted. Make sure you mentioned the heart palpitations as sometimes this requires further investigation. Keep herself well hydrated. You should take all of your regular medications as prescribed. You should not take propranolol if her blood pressure is less than 120 systolic (top number). Prescriptions: No Action propranolol 10 mg tablet 10 mg PO BID Qty: 60 1RF hydroxyzine HCl 25 mg tablet 25 mg PO TID PRN (Reason: anxiety) Qty: 30 3RF paroxetine HCl 40 mg tablet 40 mg PO DAILY Qty: 90 3RF trazodone 50 mg tablet 50 mg PO BEDTIME PRN (Reason: insomnia) Qty: 30 3RF norethindrone ac-eth estradiol [ (21)] 1.5-30 mg-mcg tablet See Rx Instructions .ROUTE .COMPLEX Qty: 63 3RF Dose Instruction: TAKE 1 TABLET BY MOUTH DAILY Rx Instructions: TAKE 1 TABLET BY MOUTH DAILY Referrals: Leilani Covarrubias DO [Primary Care Provider] - Stand Alone Forms: Patient Portal/API
== END 2023-05-09 19:13 | disposition home or self-care (01) ==
PROVIDERS: Emergency Medicine; Emergency Provider Family Medicine Addiction Medicine; PCP Family Medicine
DX: R55 Syncope and collapse (principal); R00.2 Palpitations
CPT/HCPCS: 36415; 71045; 80053; 81003; 81025; 82550; 83690; 83735; 84484; 85025; 85610; 99284

== ENCOUNTER 2024-01-29 17:50 | Emergency (ER) | payer SELFPAY ==
[2024-01-29 18:02] VITALS: BP 139/82; PULSE 100; RESP 18; TEMP 36.7; O2SAT 99; BMI 33.6
[2024-01-29 18:06] VITALS: BMI 33.6
--- NOTE | 2024-01-29 18:14 | EKG_ITS ---
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
[2024-01-29 20:56] VITALS: PULSE 83; O2SAT 92
[2024-01-29 21:00] VITALS: BP 109/73; PULSE 83; RESP 18; O2SAT 98
[2024-01-29 21:03] LABS: Hematocrit 46.7 % (36-46); Hemoglobin 15.7 g/dL (12.0-16.0); Mean Corpuscular HGB Conc 33.6 % (30-36); Mean Corpuscular Volume 86.3 fL (80-100); Platelet Count 293 X10^3/uL (150-400); Red Blood Cell Count 5.41 X10^6/uL (4.0-5.2); Red Cell Distribution Width 14.5 % (11.6-14.8); White Blood Cell Count 9.4 X10^3/uL (4.5-11.0)
[2024-01-29 21:17] LABS: Alanine Aminotransferase 16 IU/L (<35); Albumin 4.5 g/dL (3.5-5.0); Albumin Globulin Ratio 1.4 (1.0-2.8); Alkaline Phosphatase 115 U/L (38-126); Aspartate Aminotransferase 23 IU/L (14-36); Bilirubin Total 0.8 mg/dL (0.2-1.3); Blood Urea Nitrogen 7 mg/dL (7-17); Calcium 9.3 mg/dL (8.4-10.2); Carbon Dioxide 23 mmol/L (22-32); Chloride 107 mmol/L (98-107); Creatine Kinase 94 U/L (30-135); Estimated Glomerular Filt Rate > 60 mL/min (>60); Globulin 3.3 g/dL (1.7-4.1); Glucose 92 mg/dL (70-100); HEMOLYSIS < 15 (0-50); Lipase 44 U/L (23-300); Magnesium 2.2 mg/dL (1.6-2.3); Potassium 3.7 mmol/L (3.4-5.1); Sodium 140 mmol/L (137-145); Total Protein 7.8 g/dL (6.3-8.2)
[2024-01-29 21:28] LABS: Troponin I < 0.012 ng/mL (0.01-0.034)
[2024-01-29 21:30] VITALS: PULSE 85; RESP 13; O2SAT 97
--- NOTE | 2024-01-29 21:33 | ED_ITS ---
HPI - Arrhythmia/Palpitations General Chief Complaint: Arrhythmia/Palpitations Stated Complaint: Heart Palpitations, Fast HR Time Seen by Provider: 01/29/24 20:31 History of Present Illness HPI narrative: patient is a 28-year-old female with a history of anxiety, depression, presents to the emergency department for evaluation of palpitations, states that she has intermittent bouts of this, he states that today it just lasted a little longer than normal therefore decided come into the ED for further evaluation treatment. She states that she has noticed that these symptoms do occur whenever she is on her menstruation which she is currently on. She states that she does have a history of anxiety depression worsening over the past several weeks days and is also feeling like she needs additional help controlling the symptoms. But she currently denies any suicidal homicidal ideations, she did state that she has intermittent thoughts of self-harm but not currently and not with a plan. She currently has no suicidal or homicidal ideations but is still requesting to speak to a sexual assault social worker in order to obtain resources for further evaluation treatment of her anxiety depression. Related Data Home Medications Medication Instructions Recorded Confirmed levonorgestrel 21 mcg/24 hr (up to intrauterine 09/08/23 09/08/23 8 years) 52 mg intrauterine device (Mirena) Previous Rx's Medication Instructions Recorded hydroxyzine HCl 25 mg tablet 25 mg PO TID PRN anxiety #30 tabs 07/14/22 lamotrigine 25 mg tablet 25 mg PO DAILY #90 tabs 08/21/23 trazodone 50 mg tablet 50 mg PO BEDTIME PRN insomnia #30 08/21/23 tabs paroxetine HCl 40 mg tablet 40 mg PO DAILY #90 tabs 12/29/23 Allergies Allergy/AdvReac Type Severity Reaction Status Date / Time No Known Drug Allergies Allergy Verified 09/08/23 08:40 Review of Systems Review of Systems Narrative: General: Denies fever, chills, weight loss HEENT: Denies headache, eye drainage, eye irritation, head trauma, sore throat, voice change Cardiovascular: positive palpitations, Denies any chest pain, shortness of breath, tachycardia Respiratory: Denies any shortness of breath, cough, wheeze, stridor GI/: Denies any abdominal pain, nausea, vomiting, diarrhea, bright red blood per rectum, melanotic stools, urinary frequency, urinary retention, dysuria, hematuria MSK: Denies any joint pain, muscle pains, swelling Skin: Denies any rashes, lesions, discoloration Neuro: Denies any headache, lightheadedness, dizziness, fainting, weakness Psych: Denies SI/HI , positive anxiety Patient History Medical History Anxiety and depression (~2014) Panic disorder Trauma Surgical History H/O wisdom tooth extraction (~2014) S/P Family History Father No problems noted. Mother Depression Grandfather Congestive heart failure History of open heart surgery Grandmother Congestive heart failure History of open heart surgery Grandfather No problems noted. 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 needs: No Smoking Status: Current every day smoker second hand exposure: No alcohol intake: former substance use type: does not use Smoking Status: Current every day smoker tobacco type: vaping alcohol intake frequency: 0-2 drinks per day Substance Use Type: marijuana Exam Narrative Exam Narrative: General: Cooperative, comfortable, well-developed, not in acute distress HEENT: Normocephalic, atraumatic, PERRLA, normal sclera, eyelids normal, Neck: Active full range of motion, atraumatic Chest: Normal to inspection, negative crepitus, no overlying erythema ecchymosis Respiratory: Normal respiratory effort, not in acute respiratory distress, clear to auscultation bilaterally negative cough, wheeze, tachypnea, rhonchi, rales Cardiology: Regular rate rhythm negative gallop, murmur, rubs GI/: Normal to inspection, soft, nonrigid, no tenderness to palpation, exam deferred MSK: Full range of active range of motion of all 4 extremities, atraumatic Skin: No rashes lesions noted Neuro: Alert awake oriented x3, moves all 4 extremities spontaneously, cranial nerves intact, able to answer all questions appropriately follows commands appropriately Psych: Cooperative, negative suicidal or homicidal ideations Initial Vital Signs Initial Vital Signs: Vital Signs Temperature 98.1 F 01/29/24 18:02 Pulse Rate 100 H 01/29/24 18:02 Respiratory Rate 18 01/29/24 18:02 Blood Pressure 139/82 01/29/24 18:02 Pulse Oximetry 99 01/29/24 18:02 Oxygen Delivery Method Room Air 01/29/24 18:02 Course Orders Ordered: ED Orders 01/29/24 18:09 EKG-12 Lead Stat 01/29/24 18:15 [place] to [facility] [place] Social Services Designee Stat 01/29/24 20:45 CBC No Diff [Complete Blood Count NO DIFF] Stat CMP [Comprehensive Metabolic Panel] Stat Lipase Stat MAG [Magnesium] Stat TSH [Thyroid Stimulating Hormone] Stat Troponin & CK Cardiac Panel Stat Vital Signs Vital signs: Vital Signs - 8 hr 01/29/24 18:02 01/29/24 20:56 01/29/24 21:00 Temperature 98.1 F Pulse Rate 100 H 83 Respiratory Rate 18 Blood Pressure 139/82 109/73 Pulse Oximetry 99 92 Oxygen Delivery Method Room Air 01/29/24 21:00 01/29/24 21:30 01/29/24 22:00 Temperature Pulse Rate 83 85 92 H Respiratory Rate 18 13 16 Blood Pressure Pulse Oximetry 98 97 97 Oxygen Delivery Method Room Air Room Air MDM - Arrhythmia/Palpitations Differential Diagnosis Differential diagnosis: Likely palpitations, anxiety, artial fibrillation, artial flutter and other Lab Data 01/29/24 20:45 01/29/24 20:45 Labs: Lab Results 01/29/24 Range/Units 20:45 WBC 9.4 (4.5-11.0) X10^3/uL RBC 5.41 H (4.0-5.2) X10^6/uL Hgb 15.7 (12.0-16.0) g/dL Hct 46.7 H (36-46) % MCV 86.3 (80-100) fL MCH 29.0 (26-34) PG MCHC 33.6 (30-36) % RDW 14.5 (11.6-14.8) % Plt Count 293 (150-400) X10^3/uL Sodium 140 (137-145) mmol/L Potassium 3.7 (3.4-5.1) mmol/L Chloride 107 (98-107) mmol/L Carbon Dioxide 23 (22-32) mmol/L BUN 7 (7-17) mg/dL Creatinine 0.70 (0.52-1.04) mg/dL Estimated GFR > 60 (>60) mL/min BUN/Creatinine Ratio 10.0 (6-22) Glucose 92 (70-100) mg/dL Calcium 9.3 (8.4-10.2) mg/dL Magnesium 2.2 (1.6-2.3) mg/dL Total Bilirubin 0.8 (0.2-1.3) mg/dL AST 23 (14-36) IU/L ALT 16 (<35) IU/L Alkaline Phosphatase 115 (38-126) U/L Total Creatine Kinase 94 (30-135) U/L Troponin I < 0.012 (0.01-0.034) ng/mL Total Protein 7.8 (6.3-8.2) g/dL Albumin 4.5 (3.5-5.0) g/dL Globulin 3.3 (1.7-4.1) g/dL Albumin/Globulin Ratio 1.4 (1.0-2.8) Lipase 44 (23-300) U/L TSH 6.05 H (0.47-4.68) uIU/mL Imaging Data Chest x-ray: Radiologist's Impresson: [address] [address] XRay Report Signed Patient: Bonny Marquez MR#: [id number] : 1995 Acct:[id number] Age/Sex: 28 / F Date of Service: 05/09/23 Loc: ED Accession Number: [id number] Procedure: XR chest 1V Ordering Provider: Seble Beauchamp D.O. PROCEDURE: XR CHEST 1V INDICATIONS: chest pain TECHNIQUE: One view of the chest was acquired. COMPARISON: [facility], , XR CHEST 1V, 11/28/2022, 10:53. FINDINGS: Surgical changes and devices: None. Lungs and pleura: Lungs are clear. No pleural effusions or pneumothorax. Mediastinum: Mediastinal contours appear normal. Heart size is normal. Bones and chest wall: No suspicious bony lesions. Overlying soft tissues appear unremarkable. IMPRESSION: No acute cardiopulmonary abnormality is seen. ECG Data Interpretation: EKG interpreted ED physician sinus tachycardia 110 beats per minute, QTC 446, normal axis, nonspecific ST changes, no STEMI MDM Narrative Medical decision making narrative: patient is a 28-year-old female with history of anxiety, depression, comes into the ED for multiple complaints. She states that she has been having intermittent palpitations ongoing presents with a several weeks 2 days, however she states that today they lasted longer than normal so decided come into the ED for further evaluation treatment. She also states that she has been having issues with her anxiety depression has been having intermittent thoughts of hurting herself but currently denies any suicidal homicidal ideations or plans. Did discuss with social work and was provided resources here. Patient with nonischemic EKG troponin negative but noted to have elevated TSH, she was informed to follow up with her primary care doctor for this as well as Cardiology, she understands strict return precautions verbalized understanding of this agrees to being discharged home with outpatient follow up Discharge Plan Departure Patient Disposition: Home Clinical Impression: Palpitations, Elevated TSH Activity Restrictions/Additional Instructions: please follow up with your primary care doctor And Cardiology Please read the discharge instructions sheet carefully and bring all papers to all doctor follow-up visits, as it may contain information that your doctor may want to see. Disease processes change and evolve, if your symptoms worsen or if you develop any new symptoms that are concerning to you please return for evaluation. Your evaluation today does not show any evidence of any life- threatening/serious illnesses requiring admission to the hospital or surgery. Please follow-up with your doctor for re-evaluation in approximately 1 day. Seek immediate medical attention for any worrisome symptoms. Prescriptions: No Action Mirena 21 mcg/24 hours (8 yrs) 52 mg intrauterine device intrauterine hydroxyzine HCl 25 mg tablet 25 mg PO TID PRN (Reason: anxiety) Qty: 30 3RF trazodone 50 mg tablet 50 mg PO BEDTIME PRN (Reason: insomnia) Qty: 30 3RF lamotrigine 25 mg tablet 25 mg PO DAILY Qty: 90 3RF paroxetine HCl 40 mg tablet 40 mg PO DAILY Qty: 90 0RF Referrals: Vidal Stinson MD [Physician] - Deborah Acevedo MD [Primary Care Provider] - Stand Alone Forms: Patient Portal/API/Survey
[2024-01-29 21:48] LABS: Thyroid Stimulating Hormone 6.05 uIU/mL (0.47-4.68)
[2024-01-29 22:00] VITALS: PULSE 92; RESP 16; O2SAT 97
[2024-01-29 22:32] VITALS: BP 112/74; PULSE 96; RESP 18; O2SAT 97
== END 2024-01-29 22:33 | disposition home or self-care (01) ==
PROVIDERS: Emergency Provider Student in an Organized Health Care Education/Training Program; PCP Student in an Organized Health Care Education/Training Program
DX: R00.2 Palpitations (principal); R07.9 Chest pain, unspecified; R79.89 Other specified abnormal findings of blood chemistry; R00.0 Tachycardia, unspecified
CPT/HCPCS: 36415; 80053; 82550; 83690; 83735; 84443; 84484; 85027; 93005; 93010; 99283; 99284

== ENCOUNTER 2024-01-30 18:43 | Emergency (ER) | payer SELFPAY ==
[2024-01-30 18:58] VITALS: BP 107/69; PULSE 89; RESP 16; TEMP 37; O2SAT 99; BMI 33.6
--- NOTE | 2024-01-30 19:11 | DI.RAD.S_ITS ---
PROCEDURE: XR CHEST 1V INDICATIONS: chest pain TECHNIQUE: One view of the chest was acquired. COMPARISON: [facility], CR, XR CHEST 1V, 05/09/2023, 14:40. [facility], CR, XR CHEST 1V, 11/28/2022, 10:53. FINDINGS: Surgical changes and devices: None. Lungs and pleura: Lungs are clear. No pleural effusions or pneumothorax. Mediastinum: Mediastinal contours appear normal. Heart size is normal. Bones and chest wall: No suspicious bony lesions. Overlying soft tissues appear unremarkable. IMPRESSION: No acute cardiopulmonary abnormality is seen. Approved by: Rajeev Schumacher M.D. on 01/30/2024 at 20:16
--- NOTE | 2024-01-30 19:37 | EKG_ITS ---
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
[2024-01-30 19:38] LABS: Add Manual Diff / Slide Review NO; Basophils Absolute Auto 100 /uL (0-100); Basophils Percent Auto 0.5 % (0-2); Eosinophils Absolute Auto 0 /uL (0-450); Eosinophils Percent Auto 0.4 % (2-4); Hemoglobin 15.1 g/dL (12.0-16.0); Lymphocytes Absolute Auto 1300 /uL (1100-4500); Lymphocytes Percent Auto 11.8 % (25-40); Mean Corpuscular HGB Conc 33.6 % (30-36); Mean Corpuscular Hemoglobin 28.8 PG (26-34); Mean Corpuscular Volume 85.8 fL (80-100); Monocytes Absolute Auto 600 /uL (0-900); Monocytes Percent Auto 5.2 % (3-14); Neutrophils Absolute Auto 9300 /uL (1500-7000); Neutrophils Percent Auto 82.1 % (50-75); Platelet Count 317 X10^3/uL (150-400); Red Blood Cell Count 5.25 X10^6/uL (4.0-5.2); Red Cell Distribution Width 14.7 % (11.6-14.8); White Blood Cell Count 11.3 X10^3/uL (4.5-11.0)
[2024-01-30 19:46] LABS: Prothrombin Time 11.5 SECONDS (9.4-12.5)
[2024-01-30 19:49] LABS: PTT Partial Thromboplastin Tim 23 SECONDS (25.1-36.5)
[2024-01-30 19:50] LABS: Alanine Aminotransferase 18 IU/L (<35); Albumin 4.8 g/dL (3.5-5.0); Albumin Globulin Ratio 1.6 (1.0-2.8); Alkaline Phosphatase 125 U/L (38-126); Aspartate Aminotransferase 25 IU/L (14-36); BUN Creatinine Ratio 13.3 (6-22); Bilirubin Total 0.9 mg/dL (0.2-1.3); Blood Urea Nitrogen 10 mg/dL (7-17); Calcium 9.6 mg/dL (8.4-10.2); Carbon Dioxide 19 mmol/L (22-32); Chloride 108 mmol/L (98-107); Creatine Kinase 101 U/L (30-135); Estimated Glomerular Filt Rate > 60 mL/min (>60); Glucose 99 mg/dL (70-100); HEMOLYSIS < 15 (0-50); Lipase 61 U/L (23-300); Magnesium 2.1 mg/dL (1.6-2.3); Sodium 139 mmol/L (137-145); Total Protein 7.8 g/dL (6.3-8.2)
[2024-01-30 20:02] LABS: NT-proBNP (BNP-Adult 18+) 25 pg/mL (<125); Troponin I < 0.012 ng/mL (0.01-0.034)
[2024-01-30 23:01] VITALS: BP 114/64; PULSE 79; O2SAT 98
[2024-01-30 23:30] VITALS: BP 108/63; PULSE 81; O2SAT 95
[2024-01-31] VITALS: BP 112/72; PULSE 85; O2SAT 97
--- NOTE | 2024-01-31 00:06 | ED_ITS ---
HPI - Arrhythmia/Palpitations General Chief Complaint: Syncope Stated Complaint: heart palpitations, sob was here 01/28 Time Seen by Provider: 01/30/24 19:36 Source: patient Mode of arrival: Ambulatory History of Present Illness HPI narrative: 28yoF with PMH anxiety, depression presents for persistent palpitations, chest pain, shortness of breath, and near syncopal episode. Seen here yesterday for same, had negative workup. Patient reports frustration that no cause was found and no medications were given for her symptoms. Denies recent surgeries or immobilizations, uses IUD for control. Related Data Home Medications Medication Instructions Recorded Confirmed levonorgestrel 21 mcg/24 hr (up to intrauterine 09/08/23 09/08/23 8 years) 52 mg intrauterine device (Mirena) Previous Rx's Medication Instructions Recorded hydroxyzine HCl 25 mg tablet 25 mg PO TID PRN anxiety #30 tabs 07/14/22 lamotrigine 25 mg tablet 25 mg PO DAILY #90 tabs 08/21/23 trazodone 50 mg tablet 50 mg PO BEDTIME PRN insomnia #30 08/21/23 tabs paroxetine HCl 40 mg tablet 40 mg PO DAILY #90 tabs 12/29/23 metoprolol succinate 25 mg 12.5 mg (1/2 x 25 mg) PO DAILY #10 01/31/24 tablet,extended release 24 hr tabs Allergies Allergy/AdvReac Type Severity Reaction Status Date / Time No Known Drug Allergies Allergy Verified 09/08/23 08:40 Patient History Medical History Panic disorder Trauma Anxiety and depression (~2014) Surgical History S/P H/O wisdom tooth extraction (~2014) Family History Father No problems noted. Mother Depression Grandfather Congestive heart failure History of open heart surgery Grandmother Congestive heart failure History of open heart surgery Grandfather No problems noted. 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 needs: No Smoking Status: Current every day smoker second hand exposure: No alcohol intake: former substance use type: does not use Smoking Status: Current every day smoker tobacco type: vaping alcohol intake frequency: 0-2 drinks per day Substance Use Type: marijuana Exam Initial Vital Signs Initial Vital Signs: Vital Signs Temperature 98.6 F 01/30/24 18:58 Pulse Rate 89 01/30/24 18:58 Respiratory Rate 16 01/30/24 18:58 Blood Pressure 107/69 01/30/24 18:58 Pulse Oximetry 99 01/30/24 18:58 Oxygen Delivery Method Room Air 01/30/24 18:58 Const: Awake, alert, no acute distress, nontoxic appearing Cardiac: regular rate, regular rhythm RESP: unlabored, clear bilaterally, no wheezing Skin: Warm, Dry, intact, no rashes Neuro: AO x3, CN II-XII grossly intact, moves all extremities Course Orders Ordered: ED Orders 01/31/24 00:30 D Dimer Stat Discontinued Medications Aspirin (Aspirin 81 Mg Chew Tab) 324 mg PO NOW ONE Stop: 01/30/24 19:12 Vital Signs Vital signs: Vital Signs - 8 hr 01/30/24 23:01 01/30/24 23:01 01/30/24 23:30 Pulse Rate 79 Respiratory Rate Blood Pressure 114/64 108/63 Pulse Oximetry 98 01/30/24 23:30 01/31/24 00:00 01/31/24 00:00 Pulse Rate 81 85 Respiratory Rate Blood Pressure 112/72 Pulse Oximetry 95 97 01/31/24 00:30 01/31/24 00:30 01/31/24 01:00 Pulse Rate 77 Respiratory Rate 13 Blood Pressure 119/72 110/63 Pulse Oximetry 98 01/31/24 01:00 Pulse Rate 77 Respiratory Rate 14 Blood Pressure Pulse Oximetry 95 MDM - Arrhythmia/Palpitations Differential Diagnosis Differential diagnosis: Likely palpitations, anxiety and sinus tachycardia Lab Data 01/30/24 19:30 01/30/24 19:30 Labs: Lab Results 01/30/24 01/31/24 Range/Units 19:30 00:30 WBC 11.3 H (4.5-11.0) X10^3/uL RBC 5.25 H (4.0-5.2) X10^6/uL Hgb 15.1 (12.0-16.0) g/dL Hct 45.0 (36-46) % MCV 85.8 (80-100) fL MCH 28.8 (26-34) PG MCHC 33.6 (30-36) % RDW 14.7 (11.6-14.8) % Plt Count 317 (150-400) X10^3/uL Neut % (Auto) 82.1 H (50-75) % Lymph % (Auto) 11.8 L (25-40) % [place] % (Auto) 5.2 (3-14) % Eos % (Auto) 0.4 L (2-4) % Baso % (Auto) 0.5 (0-2) % Neut # (Auto) 9300 H (8353-3617) /uL Lymph # (Auto) 1300 (7038-3409) /uL [place] # (Auto) 600 (0-900) /uL Eos # (Auto) 0 (0-450) /uL Baso # (Auto) 100 (0-100) /uL PT 11.5 (9.4-12.5) SECONDS INR 1.0 (0.9-1.3) APTT 23 L (25.1-36.5) SECONDS D-Dimer 266 (<500) ng/ml Sodium 139 (137-145) mmol/L Potassium 4.0 (3.4-5.1) mmol/L Chloride 108 H (98-107) mmol/L Carbon Dioxide 19 L (22-32) mmol/L BUN 10 (7-17) mg/dL Creatinine 0.75 (0.52-1.04) mg/dL Estimated GFR > 60 (>60) mL/min BUN/Creatinine Ratio 13.3 (6-22) Glucose 99 (70-100) mg/dL Calcium 9.6 (8.4-10.2) mg/dL Magnesium 2.1 (1.6-2.3) mg/dL Total Bilirubin 0.9 (0.2-1.3) mg/dL AST 25 (14-36) IU/L ALT 18 (<35) IU/L Alkaline Phosphatase 125 (38-126) U/L Total Creatine Kinase 101 (30-135) U/L Troponin I < 0.012 (0.01-0.034) ng/mL NT-Pro-B Natriuret Pep 25 (<125) pg/mL Total Protein 7.8 (6.3-8.2) g/dL Albumin 4.8 (3.5-5.0) g/dL Globulin 3.0 (1.7-4.1) g/dL Albumin/Globulin Ratio 1.6 (1.0-2.8) Lipase 61 (23-300) U/L Imaging Data Chest x-ray: Radiologist's Impresson: PROCEDURE: XR CHEST 1V INDICATIONS: chest pain TECHNIQUE: One view of the chest was acquired. COMPARISON: [facility], CR, XR CHEST 1V, 05/09/2023, 14:40. [facility], CR, XR CHEST 1V, 11/28/2022, 10:53. FINDINGS: Surgical changes and devices: None. Lungs and pleura: Lungs are clear. No pleural effusions or pneumothorax. Mediastinum: Mediastinal contours appear normal. Heart size is normal. Bones and chest wall: No suspicious bony lesions. Overlying soft tissues appear unremarkable. IMPRESSION: No acute cardiopulmonary abnormality is seen. Approved by: Rajeev Schumacher M.D. on 01/30/2024 at 20:16 ECG Data Interpretation: Sinus rhythm at [address] No [address] T wave changes, slightly short CA without delta wave MDM Narrative Medical decision making narrative: Well-appearing patient with persistent palpitations and other symptoms. No known risk factors for PE. 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 Hemodynamically stable, physical exam is unremarkable. Repeat laboratory work unchanged from prior. D-dimer 266. Offered very small dose of metoprolol to see if this helps patient's palpitations, she states that she would like to try this medication to see if it improves her symptoms. She has pending follow up with her primary care doctor and she will discuss further treatment of her symptoms at that time. Discharge Plan Departure Patient Disposition: Home Clinical Impression: Palpitations Instructions: DI for Palpitations Activity Restrictions/Additional Instructions: Your blood work today is not significantly changed from yesterday. This does not appear to be a blood clot or heart attack at this time. a short course of metoprolol, which can help with palpitations, has been sent to your pharmacy. This may help your palpitations, but this is not guaranteed. Make sure that you follow up with your primary care doctor as scheduled. Prescriptions: New metoprolol succinate 25 mg tablet extended release 24 hr 12.5 mg PO DAILY Qty: 10 0RF No Action Mirena 21 mcg/24 hours (8 yrs) 52 mg intrauterine device intrauterine hydroxyzine HCl 25 mg tablet 25 mg PO TID PRN (Reason: anxiety) Qty: 30 3RF trazodone 50 mg tablet 50 mg PO BEDTIME PRN (Reason: insomnia) Qty: 30 3RF lamotrigine 25 mg tablet 25 mg PO DAILY Qty: 90 3RF paroxetine HCl 40 mg tablet 40 mg PO DAILY Qty: 90 0RF Referrals: Deborah Acevedo MD [Primary Care Provider] - Stand Alone Forms: Patient Portal/API/Survey
[2024-01-31 00:30] VITALS: BP 119/72; PULSE 77; RESP 13; O2SAT 98
[2024-01-31 00:58] LABS: D Dimer 266 ng/ml (<500)
[2024-01-31 01:00] VITALS: BP 110/63; PULSE 77; RESP 14; O2SAT 95
== END 2024-01-31 01:25 | disposition home or self-care (01) ==
PROVIDERS: Emergency Provider Emergency Medicine; PCP Student in an Organized Health Care Education/Training Program
DX: R00.2 Palpitations (principal); R07.9 Chest pain, unspecified; R06.02 Shortness of breath; R55 Syncope and collapse
CPT/HCPCS: 36415; 71045; 80053; 82550; 83690; 83735; 83880; 84484; 85025; 85379; 85610; 85730; 93005; 93010; 99283; 99284

== ENCOUNTER 2024-02-12 13:27 | Emergency (ER) | payer OTHER, MEDICAID, SELFPAY ==
[2024-02-12] VITALS (9 sets, daily range): BP systolic 109–112; BP diastolic 65–71; PULSE 81–92; RESP 11–19; TEMP 36.9; O2SAT 96–99; BMI 32.8
--- NOTE | 2024-02-12 14:15 | EKG_ITS ---
[place] [address] [place] [id number] Test Date: 2024-02-12 Pat Name: Bonny Marquez Department: [facility] Room: Gender: Female Family Practice Md: KAMILAH : 1995 Requested By: Order Number: [id number] Reading MD: Rob aCr Measurements Intervals [place] Rate: 75 P: 24 NC: 122 QRS: 58 QRSD: 86 T: 42 QT: 362 QTc: 404 Interpretive Statements Normal sinus rhythm Electronically Signed On 02-12-2024 16:51:40 PST by Rob Car
--- NOTE | 2024-02-12 15:59 | ED_ITS ---
HPI - Chest Pain General Chief Complaint: Chest Pain Stated Complaint: Chest pain radiating to left side and to her back Time Seen by Provider: 02/12/24 14:15 History of Present Illness HPI narrative: Patient is a 28-year-old female history of anxiety depression presents today with chest pain palpitations. She has been to the ED twice this month already for palpitations. On January 28 she had a TSH of 6.0 was not put on any thyroid medication she was supposed to follow up with her primary care provider. She was evaluated the next day for the same in the near syncopal episode. She had blood work both times. D-dimer on January 30 with 266. She has previously had elevated dimer at 1272 in 2022, during that visit she did have a CTA. She has had no prior history of pulmonary embolism. She has not hypoxic or tachycardic today. She does report significant shortness of breath when going up stairs. She does have some left-sided chest pain which is reproducible with palpation. Related Data Home Medications Medication Instructions Recorded Confirmed levonorgestrel 21 mcg/24 hr (up to intrauterine 09/08/23 09/08/23 8 years) 52 mg intrauterine device (Mirena) Previous Rx's Medication Instructions Recorded hydroxyzine HCl 25 mg tablet 25 mg PO TID PRN anxiety #30 tabs 07/14/22 lamotrigine 25 mg tablet 25 mg PO DAILY #90 tabs 08/21/23 trazodone 50 mg tablet 50 mg PO BEDTIME PRN insomnia #30 08/21/23 tabs paroxetine HCl 40 mg tablet 40 mg PO DAILY #90 tabs 12/29/23 metoprolol succinate 25 mg 12.5 mg (1/2 x 25 mg) PO DAILY #10 01/31/24 tablet,extended release 24 hr tabs albuterol sulfate 90 mcg/actuation 2 puff inhalation Q4-6H PRN 02/12/24 aerosol inhaler shortness of breath or wheezing #8.5 grams Allergies Allergy/AdvReac Type Severity Reaction Status Date / Time No Known Drug Allergies Allergy Verified 09/08/23 08:40 Patient History Medical History Panic disorder Trauma Anxiety and depression (~2014) Surgical History S/P H/O wisdom tooth extraction (~2014) Family History Father No problems noted. Mother Depression Grandfather Congestive heart failure History of open heart surgery Grandmother Congestive heart failure History of open heart surgery Grandfather No problems noted. 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 needs: No Smoking Status: Current every day smoker second hand exposure: No alcohol intake: former substance use type: does not use Smoking Status: Current every day smoker tobacco type: vaping alcohol intake frequency: 0-2 drinks per day Substance Use Type: marijuana Exam Initial Vital Signs Initial Vital Signs: Vital Signs Temperature 98.5 F 02/12/24 13:32 Pulse Rate 92 H 02/12/24 13:32 Respiratory Rate 18 02/12/24 13:32 Blood Pressure 112/65 02/12/24 13:32 Pulse Oximetry 98 02/12/24 13:32 Oxygen Delivery Method Room Air 02/12/24 13:32 GENERAL: Alert well-appearing 28-year-old female and in no acute distress. HEENT: Head atraumatic,EOMI, pupils reactive, face symmetric, moist mucous membranes CARDIOVASCULAR: Regular rate and rhythm without murmurs, rubs or gallops. Chest pain reproducible to palpation RESPIRATORY: Breath sounds equal bilaterally, no wheezes rales or rhonchi. Speaks in full sentences without difficulty ABDOMEN: Soft, nontender. Normoactive bowel sounds all 4 quadrants. No guarding or rebound. EXTREMITIES: Normal range of motion, no clubbing or edema. Neurovascularly intact NEUROLOGICAL: Alert and oriented x4.Normal gait and speech. Cranial nerves II through XII grossly intact. SKIN: Warm, dry, no laceration, no petechiae, no rashes or lesions. Course Orders Ordered: ED Orders 02/12/24 14:15 EKG-12 Lead Stat Vital Signs Vital signs: Vital Signs - 8 hr 02/12/24 13:32 02/12/24 13:38 02/12/24 14:00 Temperature 98.5 F Pulse Rate 92 H 81 88 Respiratory Rate 18 13 Blood Pressure 112/65 Pulse Oximetry 98 97 96 Oxygen Delivery Method Room Air 02/12/24 14:30 02/12/24 15:00 02/12/24 15:30 Temperature Pulse Rate 83 83 81 Respiratory Rate 19 16 16 Blood Pressure Pulse Oximetry 98 97 98 Oxygen Delivery Method 02/12/24 16:00 02/12/24 16:30 02/12/24 16:46 Temperature 98.4 F Pulse Rate 86 85 82 Respiratory Rate 11 L 18 16 Blood Pressure 109/71 Pulse Oximetry 97 98 99 Oxygen Delivery Method Room Air Room Air MDM - Chest Pain ECG Data Attestation: I personally reviewed and interpreted this ECG as follows: Prior ECG tracings: available for review Interpretation: Normal sinus rhythm rate 75 MA interval 122 QRS [address] changes or T- wave inversions MDM Narrative Medical decision making narrative: Patient 28-year-old female presents today with reproducible chest pain and some shortness of breath with exertion. It sounds as though she was having some shortness of breath couple weeks ago as well. He has not hypoxic she has no conversational dyspnea she has been checked 2 times previously for pulmonary embolism and has been negative. He has no EKGs changes that are concerning. At this time I do not think she needs repeat blood work or imaging. Discussed with her about this. We did discuss use of albuterol inhaler. So she will try that but she has not currently short of breath she has absolutely no wheezing. Discharge Plan Departure Patient Disposition: Home Clinical Impression: Atypical chest pain Instructions: DI for Atypical Chest Pain Activity Restrictions/Additional Instructions: *You have been diagnosed with atypical chest pain *What to do: At this time try albuterol inhaler prior to going up the stairs to see if it helps. If your shortness of breath is getting significantly worse please return to the emergency department. *Continue to take medications as directed Albuterol inhaler 1-2 puffs every 4 hours if needed for cough or shortness *Follow up with your primary care provider in 2-3 days or call [phone] *Return to ER if you should have worsening chest pain shortness of breath fatigue or any new, worsening or concerning symptoms Prescriptions: New albuterol sulfate 90 mcg/actuation HFA aerosol inhaler 2 puff INHALATION Q4-6H PRN (Reason: shortness of breath or wheezing) Qty: 8.5 0RF No Action Mirena 21 mcg/24 hours (8 yrs) 52 mg intrauterine device intrauterine hydroxyzine HCl 25 mg tablet 25 mg PO TID PRN (Reason: anxiety) Qty: 30 3RF trazodone 50 mg tablet 50 mg PO BEDTIME PRN (Reason: insomnia) Qty: 30 3RF lamotrigine 25 mg tablet 25 mg PO DAILY Qty: 90 3RF paroxetine HCl 40 mg tablet 40 mg PO DAILY Qty: 90 0RF metoprolol succinate 25 mg tablet extended release 24 hr 12.5 mg PO DAILY Qty: 10 0RF Referrals: Deborah Acevedo MD [Primary Care Provider] - Stand Alone Forms: Patient Portal/API/Survey
== END 2024-02-12 16:47 | disposition home or self-care (01) ==
PROVIDERS: Emergency Provider Emergency Medicine; PCP Student in an Organized Health Care Education/Training Program
DX: R07.89 Other chest pain (principal); R00.2 Palpitations
CPT/HCPCS: 93005; 99281; 99283

== ENCOUNTER 2024-02-19 10:03 | Emergency (ER) | payer OTHER, MEDICAID, SELFPAY ==
[2024-02-19] VITALS (9 sets, daily range): BP systolic 99–110; BP diastolic 57–73; PULSE 69–95; RESP 13–18; TEMP 36.7; O2SAT 97–100; BMI 33.1
--- NOTE | 2024-02-19 11:31 | EKG_ITS ---
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
--- NOTE | 2024-02-19 11:40 | DI.RAD.S_ITS ---
PROCEDURE: XR CHEST 2V INDICATIONS: cp, sob TECHNIQUE: 2 views of the chest were acquired. COMPARISON: [facility], , XR CHEST 1V, 01/30/2024, 19:12. [facility], CR, XR CHEST 1V, 05/09/2023, 14:40. FINDINGS: Surgical changes and devices: None. Lungs and pleura: Lungs are clear. No pleural effusions or pneumothorax. Mediastinum: Mediastinal contours are normal. Heart size is normal. Bones and chest wall: No suspicious bony abnormalities. Soft tissues appear unremarkable. IMPRESSION: No acute cardiopulmonary abnormality is seen. Dictated by: Jose Angel Esquivel M.D. on 02/19/2024 at 12:15 Approved by: Jose Angel Esquivel M.D. on 02/19/2024 at 12:15
[2024-02-19 12:07] LABS: Add Manual Diff / Slide Review NO; Basophils Absolute Auto 0 /uL (0-100); Basophils Percent Auto 0.5 % (0-2); Eosinophils Absolute Auto 100 /uL (0-450); Hematocrit 44.5 % (36-46); Hemoglobin 14.7 g/dL (12.0-16.0); Lymphocytes Absolute Auto 1300 /uL (1100-4500); Lymphocytes Percent Auto 16.3 % (25-40); Mean Corpuscular Hemoglobin 28.8 PG (26-34); Mean Corpuscular Volume 87.4 fL (80-100); Monocytes Absolute Auto 500 /uL (0-900); Monocytes Percent Auto 6.7 % (3-14); Neutrophils Absolute Auto 5900 /uL (1500-7000); Neutrophils Percent Auto 75.5 % (50-75); Platelet Count 206 X10^3/uL (150-400); Red Blood Cell Count 5.09 X10^6/uL (4.0-5.2); White Blood Cell Count 7.8 X10^3/uL (4.5-11.0)
[2024-02-19 12:18] LABS: INR 1.1 (0.9-1.3); Prothrombin Time 11.9 SECONDS (9.4-12.5)
[2024-02-19 12:20] LABS: PTT Partial Thromboplastin Tim 39 SECONDS (25.1-36.5)
[2024-02-19 12:25] LABS: Alanine Aminotransferase 22 IU/L (<35); Albumin 4.1 g/dL (3.5-5.0); Albumin Globulin Ratio 1.6 (1.0-2.8); Alkaline Phosphatase 103 U/L (38-126); Aspartate Aminotransferase 25 IU/L (14-36); BUN Creatinine Ratio 9.4 (6-22); Blood Urea Nitrogen 8 mg/dL (7-17); Calcium 8.9 mg/dL (8.4-10.2); Carbon Dioxide 25 mmol/L (22-32); Chloride 106 mmol/L (98-107); Creatine Kinase 45 U/L (30-135); Estimated Glomerular Filt Rate > 60 mL/min (>60); Globulin 2.6 g/dL (1.7-4.1); Glucose 113 mg/dL (70-100); HEMOLYSIS < 15 (0-50); Lipase 48 U/L (23-300); Potassium 3.8 mmol/L (3.4-5.1); Sodium 136 mmol/L (137-145); Total Protein 6.7 g/dL (6.3-8.2)
[2024-02-19 12:29] LABS: D Dimer < 215 ng/ml (<500)
--- NOTE | 2024-02-19 12:33 | PC.NURSE ---
Pt endorses transient chest pains radiating to left arm/neck, SOB, and dizziness. No nausea. No diaphoresis. Her SOB is persistent and is worse with exertion and walking. The chest pain is transient and can sometimes last 20-30minutes. Currently endorsing chest pain. Pt is on constant cardiac monitoring in fast track, call light in reach.
[2024-02-19 12:37] LABS: NT-proBNP (BNP-Adult 18+) < 20 pg/mL (<125); Troponin I < 0.012 ng/mL (0.01-0.034)
[2024-02-19 12:42] LABS: Free T3, Triiodothyronine Free 3.21 pg/mL (2.77-5.27)
--- NOTE | 2024-02-19 12:58 | ED_ITS ---
HPI - SOB/Dyspnea <Gudelia Heath PA-C - Last Filed: 02/19/24 15:59> General Chief Complaint: Shortness of Breath/Dyspnea Stated Complaint: Chest pain, SOB not getting better Time Seen by Provider: 02/19/24 10:58 Source: patient Mode of arrival: Ambulatory Limitations: no limitations History of Present Illness HPI Narrative: 28-year-old female with past medical history anxiety and depression presents to the ED with 2 days of shortness of breath and chest pain. Patient states that she was seen last week in the ED, given albuterol to use with her breathing problems. Patient denies history of wheezing or asthma. Patient has been seen 3 times over the last and for similar symptoms such as palpitations, anxiety, chest pain, shortness of breath. On January 28, patient had a TSH that was elevated to 6.05, dimer was within normal limits. Patient has had a elevated dimer past as seen in 2022. No history of PE or DVT. Patient is no longer on oral contraceptives has an IUD in place. Patient states that she has been using her with some relief. However, starting last night she started feeling like she could not get a full breath and was experiencing intermittent left-sided chest pain. No fever, chills, nausea, vomiting, abdominal pain, dysuria, syncope. Patient did endorse lightheadedness, dizziness. Patient was started on duloxetine 3 weeks ago when she went to the [facility] ED. This drug was started to replace Paxil that she had been taking for a long time. Patient also takes lamotrigine. Patient does not currently have a psychiatrist. Patient has not seen a psychiatrist in over a year. Patient has a appointment scheduled with her PCP in 2 weeks for further evaluation of her thyroid levels. Patient does endorse feeling anxious, denies SI or HI. Related Data Home Medications Medication Instructions Recorded Confirmed levonorgestrel 21 mcg/24 hr (up to intrauterine 09/08/23 09/08/23 8 years) 52 mg intrauterine device (Mirena) Previous Rx's Medication Instructions Recorded hydroxyzine HCl 25 mg tablet 25 mg PO TID PRN anxiety #30 tabs 07/14/22 lamotrigine 25 mg tablet 25 mg PO DAILY #90 tabs 08/21/23 trazodone 50 mg tablet 50 mg PO BEDTIME PRN insomnia #30 08/21/23 tabs paroxetine HCl 40 mg tablet 40 mg PO DAILY #90 tabs 12/29/23 metoprolol succinate 25 mg 12.5 mg (1/2 x 25 mg) PO DAILY #10 01/31/24 tablet,extended release 24 hr tabs albuterol sulfate 90 mcg/actuation 2 puff inhalation Q4-6H PRN 02/12/24 aerosol inhaler shortness of breath or wheezing #8.5 grams nitrofurantoin 100 mg PO Q12H 5 days #10 caps 02/19/24 monohydrate/macrocrystals 100 mg capsule (Macrobid) Allergies Allergy/AdvReac Type Severity Reaction Status Date / Time No Known Drug Allergies Allergy Verified 09/08/23 08:40 Review of Systems <Gudelia Heath PA-C - Last Filed: 02/19/24 15:59> Constitutional Constitutional: Denies chills, Denies fatigue, Denies fever(s), Denies frequent falls, Denies lethargy and Denies weakness Eyes Eyes: Denies change in vision, Denies eye discharge, Denies irritation and Denies loss of vision ENT Ears, Nose, Mouth, and Throat: Denies change in voice, Denies dizziness, Denies neck pain, Denies sore throat and Denies throat swelling Cardiovascular Cardiovascular: Reports chest pain, Denies irregular heart rhythm, Denies lightheadedness, Denies palpitations, Reports dyspnea, Reports dyspnea on exertion and Denies orthopnea Respiratory Respiratory: Denies cough, Reports dyspnea, Reports dyspnea on exertion and Denies wheezing Gastrointestinal Gastrointestinal: Denies abdominal pain, Denies change in bowel habits, Denies diarrhea, Denies nausea and Denies vomiting Musculoskeletal Musculoskeletal: Denies neck pain and Denies numbness Integumentary/Breasts Skin/Breast: Denies pruritus, Denies erythema, Denies rash and Denies wounds Neurologic Neurologic: Denies behavioral changes, Denies confusion, Denies dizziness, Denies frequent falls, Denies loss of vision, Denies numbness and Denies weakness Psychiatric Psychiatric: Reports anxiety, Denies behavioral changes, Denies confusion, Reports depression, Denies homicidal ideation and Denies suicidal ideation Endocrine Endocrine: Denies fatigue, Denies flushing and Denies palpitations Hematologic/Lymphatic Hematologic/Lymphatic: Denies easy bruising Allergic/Immunologic Allergic/Immunologic: Denies urticaria, Denies throat swelling and Denies wheezing Patient History <Gudelia Heath PA-C - Last Filed: 02/19/24 15:59> Medical History Panic disorder Trauma Anxiety and depression (~2014) Surgical History S/P H/O wisdom tooth extraction (~2014) Family History Father No problems noted. Mother Depression Grandfather Congestive heart failure History of open heart surgery Grandmother Congestive heart failure History of open heart surgery Grandfather No problems noted. 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oral mucosae normal Throat:?posterior oropharynx normal Eyes General:?appearance normal, both eyes and all related structures Neck Neck:?normal visual inspection and no lymphadenopathy noted Resp Effort & Inspection:?normal respiratory effort Auscultation:?clear to auscultation bilaterally Cardio Rate:?regular rate Rhythm:?regular rhythm GI Abdomen is soft, nondistended, nontender to palpation. Neuro General:?patient alert, patient awake and patient oriented x3 Initial Vital Signs Initial Vital Signs: Vital Signs Pulse Rate 91 H 02/19/24 10:09 Pulse Oximetry 100 12/02/24 10:09 <Seble Beauchamp DO - Last Filed: 02/19/24 18:55> Initial Vital Signs Initial Vital Signs: Vital Signs Pulse Rate 91 H 02/19/24 10:09 Pulse Oximetry 100 02/19/24 10:09 Course <Gudelia Heath PA-C - Last Filed: 02/19/24 15:59> Orders Ordered: ED Orders 02/19/24 11:23 EKG-12 Lead Stat 02/19/24 11:40 CXR [XR chest 2V] Stat 02/19/24 11:50 BNP [NT-proBNP (BNP-Adult 18+)] Stat CBC Auto Diff [Complete Blood Count AUTO DIFF] Stat CMP [Comprehensive Metabolic Panel] Stat D Dimer Stat Free T3, Triiodothyronine Free Stat Free T4, Direct Thyroxine Stat Lipase Stat PT [Prothrombin Time INR] Stat PTT [PTT Partial Thromboplastin Luis] Stat TSH [Thyroid Stimulating Hormone] Stat Troponin & CK Cardiac Panel Stat 02/19/24 14:50 Urine Culture Stat Urine Microscopic Stat Vital Signs Vital signs: Vital Signs - 8 hr 02/19/24 11:00 02/19/24 11:00 02/19/24 11:30 Pulse Rate 69 Respiratory Rate 13 Blood Pressure 105/57 L 100/69 Pulse Oximetry 97 Oxygen Delivery Method 02/19/24 11:30 02/19/24 12:00 02/19/24 12:00 Pulse Rate 85 80 Respiratory Rate 15 Blood Pressure 110/60 Pulse Oximetry 100 98 Oxygen Delivery Method Room Air 02/19/24 13:51 02/19/24 14:30 02/19/24 15:47 Pulse Rate 91 H 87 90 Respiratory Rate 18 17 18 Blood Pressure 103/57 L 99/66 101/61 Pulse Oximetry 98 98 98 Oxygen Delivery Method Room Air Room Air Room Air <Seble Beauchamp DO - Last Filed: 02/19/24 18:55> Orders Ordered: ED Orders 02/19/24 11:23 EKG-12 Lead Stat 02/19/24 11:40 CXR [XR chest 2V] Stat 02/19/24 11:50 BNP [NT-proBNP (BNP-Adult 18+)] Stat CBC Auto Diff [Complete Blood Count AUTO DIFF] Stat CMP [Comprehensive Metabolic Panel] Stat D Dimer Stat Free T3, Triiodothyronine Free Stat Free T4, Direct Thyroxine Stat Lipase Stat PT [Prothrombin Time INR] Stat PTT [PTT Partial Thromboplastin Luis] Stat TSH [Thyroid Stimulating Hormone] Stat Troponin & CK Cardiac Panel Stat 02/19/24 14:50 Urine Culture Stat Urine Microscopic Stat Vital Signs Vital signs: Vital Signs - 8 hr 02/19/24 11:00 02/19/24 11:00 02/19/24 11:30 Pulse Rate 69 Respiratory Rate 13 Blood Pressure 105/57 L 100/69 Pulse Oximetry 97 Oxygen Delivery Method 02/19/24 11:30 02/19/24 12:00 02/19/24 12:00 Pulse Rate 85 80 Respiratory Rate 15 Blood Pressure 110/60 Pulse Oximetry 100 98 Oxygen Delivery Method Room Air 02/19/24 13:51 02/19/24 14:30 02/19/24 15:47 Pulse Rate 91 H 87 90 Respiratory Rate 18 17 18 Blood Pressure 103/57 L 99/66 101/61 Pulse Oximetry 98 98 98 Oxygen Delivery Method Room Air Room Air Room Air MDM - SOB/Dyspnea <Gudelia Heath PA-C - Last Filed: 02/19/24 15:59> Lab Data 02/19/24 11:50 02/19/24 11:50 Labs: Lab Results 02/19/24 02/19/24 Range/Units 11:50 14:50 WBC 7.8 (4.5-11.0) X10^3/uL RBC 5.09 (4.0-5.2) X10^6/uL Hgb 14.7 (12.0-16.0) g/dL Hct 44.5 (36-46) % MCV 87.4 (80-100) fL MCH 28.8 (26-34) PG MCHC 33.0 (30-36) % RDW 15.0 H (11.6-14.8) % Plt Count 206 (150-400) X10^3/uL Neut % (Auto) 75.5 H (50-75) % Lymph % (Auto) 16.3 L (25-40) % [place] % (Auto) 6.7 (3-14) % Eos % (Auto) 1.0 L (2-4) % Baso % (Auto) 0.5 (0-2) % Neut # (Auto) 5900 (2754-5987) /uL Lymph # (Auto) 1300 (7177-5786) /uL [place] # (Auto) 500 (0-900) /uL Eos # (Auto) 100 (0-450) /uL Baso # (Auto) 0 (0-100) /uL PT 11.9 (9.4-12.5) SECONDS INR 1.1 (0.9-1.3) APTT 39 H (25.1-36.5) SECONDS D-Dimer < 215 (<500) ng/ml Sodium 136 L (137-145) mmol/L Potassium 3.8 (3.4-5.1) mmol/L Chloride 106 (98-107) mmol/L Carbon Dioxide 25 (22-32) mmol/L BUN 8 (7-17) mg/dL Creatinine 0.85 (0.52-1.04) mg/dL Estimated GFR > 60 (>60) mL/min BUN/Creatinine Ratio 9.4 (6-22) Glucose 113 H (70-100) mg/dL Calcium 8.9 (8.4-10.2) mg/dL Total Bilirubin 1.0 (0.2-1.3) mg/dL AST 25 (14-36) IU/L ALT 22 (<35) IU/L Alkaline Phosphatase 103 (38-126) U/L Total Creatine Kinase 45 (30-135) U/L Troponin I < 0.012 (0.01-0.034) ng/mL NT-Pro-B Natriuret Pep < 20 (<125) pg/mL Total Protein 6.7 (6.3-8.2) g/dL Albumin 4.1 (3.5-5.0) g/dL Globulin 2.6 (1.7-4.1) g/dL Albumin/Globulin Ratio 1.6 (1.0-2.8) Lipase 48 (23-300) U/L TSH 1.57 (0.47-4.68) uIU/mL Free T4 0.99 (0.78-2.19) ng/dL Free T3 3.21 (2.77-5.27) pg/mL Urine RBC 0-1/hpf (0-5/HPF) Urine WBC 5-10/hpf H (0-5/HPF) Ur Squamous Epith Cells 10-30 /hpf H D (0-5/HPF) Urine Bacteria Moderate (10-30) H (None) Urine Mucus 3+ H (Negative) Vol Urine Centrifuged 10ml (spun) Point of Care Testing Test Results Negative Urine Dip Bedside Urine Glucose Negative Bedside Urine Bilirubin - Negative Bedside Urine Ketone +/- 5 Urine Specific Mather 1.015 Bedside Urine Occult Blood - Negative Bedside Urine pH 6.0 Bedside Urine Protein - Negative Bedside Urine Urobilinogen - Negative Bedside Urine Nitrite - Negative Bedside Urine Leukocytes + 70 Esterase MDM Narrative Medical decision making narrative: 28-year-old female with past medical history anxiety and depression presents to the ED with 2 days of shortness of breath and chest pain. Will workup broadly including cardiopulmonary, thyroid etiologies vs other. EKG is normal sinus rhythm with a ventricular rate of 85 beats per minute. No acute ST-T changes, no axis deviation. Chest x-ray without acute findings. Labs within normal limits. TSH, free T3, free T4 within normal limits. UA is positive for WBCs, leukocyte esterase. Patient is however asymptomatic. Counseled patient that she can defer antibiotics if she is asymptomatic, however will prescribe in the event that she does develop symptoms over the next day or 2. Patient again denies SI or HI. Patient is safe for discharge. Recommend patient follow-up with her PCP as scheduled in the next 2 weeks for further evaluation and. Recommend follow-up with psych for evaluation and medication review. ED return precautions were discussed with patient. Patient verbalized understanding. Medical records reviewed: Yes <Seble Beauchamp, DO - Last Filed: 02/19/24 18:55> Lab Data Labs: Lab Results 02/19/24 02/19/24 Range/Units 11:50 14:50 WBC 7.8 (4.5-11.0) X10^3/uL RBC 5.09 (4.0-5.2) X10^6/uL Hgb 14.7 (12.0-16.0) g/dL Hct 44.5 (36-46) % MCV 87.4 (80-100) fL MCH 28.8 (26-34) PG MCHC 33.0 (30-36) % RDW 15.0 H (11.6-14.8) % Plt Count 206 (150-400) X10^3/uL Neut % (Auto) 75.5 H (50-75) % Lymph % (Auto) 16.3 L (25-40) % [place] % (Auto) 6.7 (3-14) % Eos % (Auto) 1.0 L (2-4) % Baso % (Auto) 0.5 (0-2) % Neut # (Auto) 5900 (3259-4224) /uL Lymph # (Auto) 1300 (9151-4095) /uL [place] # (Auto) 500 (0-900) /uL Eos # (Auto) 100 (0-450) /uL Baso # (Auto) 0 (0-100) /uL PT 11.9 (9.4-12.5) SECONDS INR 1.1 (0.9-1.3) APTT 39 H (25.1-36.5) SECONDS D-Dimer < 215 (<500) ng/ml Sodium 136 L (137-145) mmol/L Potassium 3.8 (3.4-5.1) mmol/L Chloride 106 (98-107) mmol/L Carbon Dioxide 25 (22-32) mmol/L BUN 8 (7-17) mg/dL Creatinine 0.85 (0.52-1.04) mg/dL Estimated GFR > 60 (>60) mL/min BUN/Creatinine Ratio 9.4 (6-22) Glucose 113 H (70-100) mg/dL Calcium 8.9 (8.4-10.2) mg/dL Total Bilirubin 1.0 (0.2-1.3) mg/dL AST 25 (14-36) IU/L ALT 22 (<35) IU/L Alkaline Phosphatase 103 (38-126) U/L Total Creatine Kinase 45 (30-135) U/L Troponin I < 0.012 (0.01-0.034) ng/mL NT-Pro-B Natriuret Pep < 20 (<125) pg/mL Total Protein 6.7 (6.3-8.2) g/dL Albumin 4.1 (3.5-5.0) g/dL Globulin 2.6 (1.7-4.1) g/dL Albumin/Globulin Ratio 1.6 (1.0-2.8) Lipase 48 (23-300) U/L TSH 1.57 (0.47-4.68) uIU/mL Free T4 0.99 (0.78-2.19) ng/dL Free T3 3.21 (2.77-5.27) pg/mL Urine RBC 0-1/hpf (0-5/HPF) Urine WBC 5-10/hpf H (0-5/HPF) Ur Squamous Epith Cells 10-30 /hpf H D (0-5/HPF) Urine Bacteria Moderate (10-30) H (None) Urine Mucus 3+ H (Negative) Vol Urine Centrifuged 10ml (spun) Point of Care Testing Test Results Negative Urine Dip Bedside Urine Glucose Negative Bedside Urine Bilirubin - Negative Bedside Urine Ketone +/- 5 Urine Specific [place] 1.015 Bedside Urine Occult Blood - Negative Bedside Urine pH 6.0 Bedside Urine Protein - Negative Bedside Urine Urobilinogen - Negative Bedside Urine Nitrite - Negative Bedside Urine Leukocytes + 70 Esterase Discharge Plan Departure Patient Disposition: Home Clinical Impression: SOB (shortness of breath) UTI (urinary tract infection) Qualifiers: Urinary tract infection type: acute cystitis Hematuria presence: without hematuria Qualified Code(s): N30.00 - Acute cystitis without hematuria Instructions: DI for Anxiety -- Adult Activity Restrictions/Additional Instructions: You were evaluated in the ED today for chest pain and shortness of breath. Your urine shows a urinary tract infection. However, since you have no symptoms, you can defer antibiotics unless you start having symptoms. Your workup today was otherwise normal. Your thyroid levels were normal as well. It is unclear why you were feeling the chest pain and shortness of breath, although the anxiety could be a component of this. Please follow-up with your PCP as scheduled for later this month for further evaluation and referral to Psychiatry. You may benefit from a psych consult for further evaluation of the depression and anxiety as well as the medications. Return to the ED if you have worsening symptoms, suicidal or homicidal thoughts. Prescriptions: New nitrofurantoin monohyd/m-cryst [Macrobid] 100 mg capsule 100 mg PO Q12H 5 Days Qty: 10 0RF Rx Instructions: must administer with a meal/food No Action Mirena 21 mcg/24 hours (8 yrs) 52 mg intrauterine device intrauterine hydroxyzine HCl 25 mg tablet 25 mg PO TID PRN (Reason: anxiety) Qty: 30 3RF trazodone 50 mg tablet 50 mg PO BEDTIME PRN (Reason: insomnia) Qty: 30 3RF lamotrigine 25 mg tablet 25 mg PO DAILY Qty: 90 3RF paroxetine HCl 40 mg tablet 40 mg PO DAILY Qty: 90 0RF metoprolol succinate 25 mg tablet extended release 24 hr 12.5 mg PO DAILY Qty: 10 0RF albuterol sulfate 90 mcg/actuation HFA aerosol inhaler 2 puff INHALATION Q4-6H PRN (Reason: shortness of breath or wheezing) Qty: 8.5 0RF Referrals: Deborah Acevedo MD [Primary Care Provider] - Stand Alone Forms: Patient Portal/API/Survey ED Sign-out <Seble Beauchamp DO - Last Filed: 02/19/24 18:55> Cosign ED Attending Yulissa Attestation: I was immediately available in the department for consultation.
[2024-02-19 13:25] LABS: Free T4, Direct Thyroxine 0.99 ng/dL (0.78-2.19)
[2024-02-19 13:39] LABS: Thyroid Stimulating Hormone 1.57 uIU/mL (0.47-4.68)
[2024-02-19 15:13] LABS: Bacteria Urine Moderate (10-30); Mucus Urine 3+ (Negative); RBC Urine 0-1/HPF (0-5/HPF); Squamous Epithelial Cell Urine 10-30 /HPF (0-5/HPF); Urine Volume 10mL (spun); WBC Urine 5-10/HPF (0-5/HPF)
== END 2024-02-19 15:55 | disposition home or self-care (01) ==
PROVIDERS: Emergency Provider Student in an Organized Health Care Education/Training Program; PCP Student in an Organized Health Care Education/Training Program
DX: N30.00 Acute cystitis without hematuria (principal); R06.02 Shortness of breath; R07.9 Chest pain, unspecified; Z97.5 Presence of (intrauterine) contraceptive device
CPT/HCPCS: 71046; 80053; 81003; 81015; 81025; 82550; 83690; 83880; 84439; 84443; 84481; 84484; 85025; 85379; 85610; 85730; 87086; 93005; 93010; 99282; 99284

== ENCOUNTER → 2024-03-06 09:45 | Outpatient (CLI) | payer OTHER, MEDICAID, SELFPAY | LOC: CAR 09:46 | PROVIDERS: PCP Student in an Organized Health Care Education/Training Program; Referring Provider Student in an Organized Health Care Education/Training Program; Visit Provider Student in an Organized Health Care Education/Training Program | DX: R00.2 Palpitations (principal) | CPT/HCPCS: 93246 ==

== ENCOUNTER → 2024-03-06 09:59 | Outpatient (CLI) | payer OTHER, SELFPAY ==
[2024-03-06 11:37] LABS: Free T3, Triiodothyronine Free 4.12 pg/mL (2.77-5.27); Free T4, Direct Thyroxine 1.25 ng/dL (0.78-2.19)
== END ==
LOC: LAB 10:00
PROVIDERS: PCP Student in an Organized Health Care Education/Training Program; Referring Provider Student in an Organized Health Care Education/Training Program; Visit Provider Student in an Organized Health Care Education/Training Program
DX: Z13.29 Encounter for screening for other suspected endocrine disorder (principal)
CPT/HCPCS: 36415; 84439; 84443; 84481; 93246

== ENCOUNTER 2024-03-27 16:19 | Emergency (ER) | payer OTHER, SELFPAY ==
[2024-03-27] VITALS (9 sets, daily range): BP systolic 100–122; BP diastolic 66–79; PULSE 90–115; RESP 16–21; TEMP 36.6; O2SAT 97–100; BMI 29.7
--- NOTE | 2024-03-27 18:35 | ED_ITS ---
HPI - Psych General Chief Complaint: Psychiatric Symptoms Stated Complaint: not eating or drinking for 2 months Time Seen by Provider: 03/27/24 17:49 History of Present Illness HPI Narrative: 28-year-old female with history of anxiety and depression presents with family for worsening mental state. For the last several months patient has had decreased appetite and has had difficulty in caring for herself. She was not been taking her medications due to decreased p.o. intake. Family at bedside reports concerned that she was not able to care for herself or her child at home. Patient was seen at [facility] yesterday, she was evaluated by tele psychiatry who stated that she did not meet criteria for involuntary placement, and placed an outpatient referral and made medication adjustment recommendations. Family is concerned that patient was not taking her medications at all and medication changes would not help. Patient denies wanting to kill herself at this time Related Data Home Medications Medication Instructions Recorded Confirmed levonorgestrel 21 mcg/24 hr (up to intrauterine 09/08/23 03/22/24 8 years) 52 mg intrauterine device (Mirena) Previous Rx's Medication Instructions Recorded hydroxyzine HCl 25 mg tablet 25 mg PO TID PRN anxiety #30 tabs 07/14/22 albuterol sulfate 90 mcg/actuation 2 puff inhalation Q4-6H PRN 02/12/24 aerosol inhaler shortness of breath or wheezing #8.5 grams lamotrigine 25 mg tablet 50 mg (2 x 25 mg) PO DAILY #60 tabs 03/01/24 metoprolol succinate 25 mg 12.5 mg (1/2 x 25 mg) PO DAILY #30 03/01/24 tablet,extended release 24 hr tabs duloxetine 20 mg capsule,delayed 20 mg PO DAILY #90 caps 03/25/24 release Allergies Allergy/AdvReac Type Severity Reaction Status Date / Time No Known Drug Allergies Allergy Verified 03/22/24 09:35 Patient History Medical History Panic disorder Trauma Anxiety and depression (~2014) Surgical History S/P H/O wisdom tooth extraction (~2014) Family History Father No problems noted. Mother Depression Grandfather Congestive heart failure History of open heart surgery Grandmother Congestive heart failure History of open heart surgery Grandfather No problems noted. 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 needs: No Smoking Status: Current every day smoker second hand exposure: No alcohol intake: former substance use type: does not use Smoking Status: Current every day smoker tobacco type: vaping alcohol intake frequency: 0-2 drinks per day Exam Initial Vital Signs Initial Vital Signs: Vital Signs Temperature 97.9 F 03/27/24 16:35 Pulse Rate 115 H 03/27/24 16:35 Respiratory Rate 16 03/27/24 16:35 Blood Pressure 100/71 03/27/24 16:35 Pulse Oximetry 98 03/27/24 16:35 Oxygen Delivery Method Room Air 03/27/24 16:35 Const: Awake, alert, no acute distress, nontoxic appearing, disheveled Cardiac: regular rate, regular rhythm RESP: unlabored, clear bilaterally, no wheezing GI: Soft, nontender, nondistended, no rebound, no guarding Skin: Warm, Dry, intact, no rashes Neuro: AO x3, CN II-XII grossly intact, moves all extremities Psych: Flat affect, insight poor, judgment poor, denying SI Course Orders Ordered: Discontinued Medications Hydroxyzine HCl (Hydroxyzine Hcl 25 Mg Tablet) 25 mg PO NOW ONE Stop: 03/27/24 23:31 Last Admin: 03/27/24 23:35 Dose: 25 mg Documented By: LS Vital Signs Vital signs: Vital Signs - 8 hr 03/27/24 23:36 Pulse Rate 90 Respiratory Rate 18 Blood Pressure 106/74 Pulse Oximetry 99 Oxygen Delivery Method Room Air MDM - Psych Lab Data 03/27/24 18:48 03/27/24 18:48 Labs: Lab Results 03/27/24 03/27/24 03/27/24 Range/Units 18:48 19:28 19:28 WBC 7.0 (4.5-11.0) X10^3/uL RBC 5.90 H (4.0-5.2) X10^6/uL Hgb 17.0 H (12.0-16.0) g/dL Hct 51.1 H (36-46) % MCV 86.7 (80-100) fL MCH 28.9 (26-34) PG MCHC 33.3 (30-36) % RDW 14.4 (11.6-14.8) % Plt Count 237 (150-400) X10^3/uL Neut % (Auto) 71.3 (50-75) % Lymph % (Auto) 18.9 L (25-40) % [place] % (Auto) 8.4 (3-14) % Eos % (Auto) 0.7 L (2-4) % Baso % (Auto) 0.7 (0-2) % Neut # (Auto) 5000 (3157-6562) /uL Lymph # (Auto) 1300 (0293-1232) /uL [place] # (Auto) 600 (0-900) /uL Eos # (Auto) 0 (0-450) /uL Baso # (Auto) 100 (0-100) /uL Sodium 138 (137-145) mmol/L Potassium 3.7 (3.4-5.1) mmol/L Chloride 105 (98-107) mmol/L Carbon Dioxide 17 L (22-32) mmol/L BUN 8 (7-17) mg/dL Creatinine 0.82 (0.52-1.04) mg/dL Estimated GFR > 60 (>60) mL/min BUN/Creatinine Ratio 9.8 (6-22) Glucose 130 H (70-100) mg/dL Calcium 9.6 (8.4-10.2) mg/dL Total Bilirubin 1.1 (0.2-1.3) mg/dL AST 32 (14-36) IU/L ALT 27 (<35) IU/L Alkaline Phosphatase 95 (38-126) U/L Total Protein 8.0 (6.3-8.2) g/dL Albumin 5.0 (3.5-5.0) g/dL Globulin 3.0 (1.7-4.1) g/dL Albumin/Globulin Ratio 1.7 (1.0-2.8) TSH 1.41 (0.47-4.68) uIU/mL Urine Color Yellow Urine Appearance Cloudy Urine pH 6.0 Normal (4.5-8.0) Ur Specific [place] >=1.030 H (1.000-1.035) Urine Protein 1+ H (Negative) Urine Glucose (UA) Negative (Negative) g/dL Urine Ketones 3+ H (NEGATIVE) Urine Occult Blood Negative (Negative) Urine Nitrate Negative (Negative) Urine Bilirubin 1+ H (NEGATIVE) Ur Bilirubin Confirm Negative (Negative) Urine Urobilinogen 1.0 (0.2) E.U./dL Ur Leukocyte Esterase Negative (NEGATIVE) Urine RBC None seen (0-5/HPF) Urine WBC 0-1/hpf (0-5/HPF) Ur Squamous Epith Cells 0-1 /hpf D (0-5/HPF) Urine Bacteria None seen (None) Ur Culture Indicated? Cult not indicated Vol Urine Centrifuged 10ml (spun) Urine Test Negative (Negative) Salicylates < 1.0 (<20) mg/dL U Opiates 300ng/mL cut Negative (Negative) Ur Oxycodone Screen Negative (Negative) Urine Methadone Screen Negative (Negative) Acetaminophen < 10 (10-30) ug/mL Ur Barbiturates Screen Negative (Negative) U Tricyclic Antidepress Negative (Negative) Ur Phencyclidine Scrn Negative (Negative) Ur Amphetamines Screen Negative (Negative) U Methamphetamines Scrn Negative (Negative) Ur MDMA Scrn (Ecstasy) Negative (Negative) U Benzodiazepines Scrn Negative (Negative) Urine Cocaine Screen Negative (Negative) U Marijuana (THC) Screen Positive H (Negative) Urine Specific [place] Normal (Normal) Ethyl Alcohol < 10 ( - 10) mg/dL Ur Creatinine Normal (Normal) SARS-CoV-2 (PCR) Negative (Negative) MDM Narrative Medical decision making narrative: Several months of decreased caring for self. Family took patient to outside hospital yesterday, but recommendations at that time were for outpatient care. They are concerned that the patient will not benefit from outpatient. Patient requests voluntary placement at this time. box storage worker came to evaluate patient. Laboratory work is reviewed, no significant abnormalities identified. Ketones present in the urine, which would suggest decreased p.o. intake, however electrolytes within normal limits. Patient has been calm and cooperative in exam room throughout entire stay in the emergency department. Accepted at [facility] for further treatment. Discharge Plan Departure Patient Disposition: [facility] Clinical Impression: Alteration in self-care ability, Anxiety Prescriptions: No Action Mirena 21 mcg/24 hours (8 yrs) 52 mg intrauterine device intrauterine hydroxyzine HCl 25 mg tablet 25 mg PO TID PRN (Reason: anxiety) Qty: 30 3RF lamotrigine 25 mg tablet 50 mg PO DAILY Qty: 60 3RF metoprolol succinate 25 mg tablet extended release 24 hr 12.5 mg PO DAILY Qty: 30 0RF duloxetine 20 mg capsule,delayed release(DR/EC) 20 mg PO DAILY Qty: 90 3RF albuterol sulfate 90 mcg/actuation HFA aerosol inhaler 2 puff INHALATION Q4-6H PRN (Reason: shortness of breath or wheezing) Qty: 8.5 0RF Referrals: Deborah Acevedo MD [Primary Care Provider] -
[2024-03-27 19:03] LABS: Add Manual Diff / Slide Review NO; Basophils Absolute Auto 100 /uL (0-100); Basophils Percent Auto 0.7 % (0-2); Eosinophils Absolute Auto 0 /uL (0-450); Eosinophils Percent Auto 0.7 % (2-4); Hematocrit 51.1 % (36-46); Lymphocytes Absolute Auto 1300 /uL (1100-4500); Lymphocytes Percent Auto 18.9 % (25-40); Mean Corpuscular HGB Conc 33.3 % (30-36); Mean Corpuscular Hemoglobin 28.9 PG (26-34); Mean Corpuscular Volume 86.7 fL (80-100); Monocytes Absolute Auto 600 /uL (0-900); Monocytes Percent Auto 8.4 % (3-14); Neutrophils Absolute Auto 5000 /uL (1500-7000); Neutrophils Percent Auto 71.3 % (50-75); Platelet Count 237 X10^3/uL (150-400); Red Cell Distribution Width 14.4 % (11.6-14.8)
[2024-03-27 19:13] LABS: Acetaminophen < 10 ug/mL (10-30); Alanine Aminotransferase 27 IU/L (<35); Albumin Globulin Ratio 1.7 (1.0-2.8); Alkaline Phosphatase 95 U/L (38-126); Aspartate Aminotransferase 32 IU/L (14-36); BUN Creatinine Ratio 9.8 (6-22); Bilirubin Total 1.1 mg/dL (0.2-1.3); Blood Urea Nitrogen 8 mg/dL (7-17); Calcium 9.6 mg/dL (8.4-10.2); Carbon Dioxide 17 mmol/L (22-32); Chloride 105 mmol/L (98-107); Estimated Glomerular Filt Rate > 60 mL/min (>60); Ethanol (ETOH) < 10 mg/dL; Glucose 130 mg/dL (70-100); HEMOLYSIS 22 (0-50); Potassium 3.7 mmol/L (3.4-5.1); Salicylate < 1.0 mg/dL (<20); Sodium 138 mmol/L (137-145)
[2024-03-27 19:18] LABS: COVID19 -Nasal RAPID Negative (Negative)
--- NOTE | 2024-03-27 19:29 | PC.NURSE ---
Pt ambulatory to restroom without difficulty or assistance
[2024-03-27 19:34] LABS: Appearance Urine UA CLOUDY; Bilirubin Urine UA 1+ (NEGATIVE); Color Urine UA YELLOW; Glucose Urine UA NEGATIVE (Negative); Ketones Urine UA 3+ (NEGATIVE); Leukocyte Esterase Urine UA NEGATIVE (NEGATIVE); Nitrite Urine UA NEGATIVE (Negative); Occult Blood Urine UA NEGATIVE (Negative); Protein Urine UA 1+ (Negative); Specific Gravity Urine UA >=1.030 (1.000-1.035)
[2024-03-27 19:35] LABS: Pregnancy Test Urine Negative (Negative)
[2024-03-27 19:39] LABS: UR Morphine/Opiate cutoff 300 Negative (Negative); Ur Creatinine Normal (Normal); Ur Specific Gravity Normal (Normal); Urine Amphetamines Negative (Negative); Urine Barbiturates Negative (Negative); Urine Benzodiazepines Negative (Negative); Urine Cocaine Negative (Negative); Urine MDMA Negative (Negative); Urine Methadone Negative (Negative); Urine Methamphetamines Negative (Negative); Urine Oxycodone Negative (Negative); Urine Phencyclidine Negative (Negative); Urine Tetrahydrocannabinol Positive (Negative); Urine Tricyclic Antidepressant Negative (Negative); Urine pH Normal (Normal)
[2024-03-27 19:42] LABS: Bacteria Urine None Seen; Culture Indicated Urine Cult Not Indicated; Ictotest Urine Negative (Negative); RBC Urine None Seen (0-5/HPF); Squamous Epithelial Cell Urine 0-1 /HPF (0-5/HPF); Urine Volume 10mL (spun); WBC Urine 0-1/HPF (0-5/HPF)
--- NOTE | 2024-03-27 19:44 | CM.SWNOTE ---
ED PROFESSOR OF MUSIC Assessment Note PROFESSOR OF MUSIC - Crm Coordinator Assessment PROFESSOR OF MUSIC/Crm Coordinator Assessment Time Spent with Patient Start date 03/27/24 Visit Start Time 18:00 End date 03/27/24 Visit End Time 18:20 Total time Care Management spent on 20 minutes patient visit-in minutes Mental Health Screening Include Onset, Duration, Intensity Presenting Problem Patient presents to ED due to concern for grave disability. Patient reports she has not been eating for the last week and not taking MH medication. It is reported that patient hasn't been showering and has not been able to care for her son or leave the house. Patient endorses concern for Depression and Anxiety. Patient also endorses difficulty sleeping due to anxiety. Precipitating Event(s) Patient denies any recent events leading up to this. Patient's sister endorses all of her family are worried about her and have been trying to get her to eat, take care of herself and leave the house but patient has been presenting with hopelessness. It is reported that the father of patient's child has had to care for child because she not been able to do so. Patient states that she has not been taking MH medication because she has not been eating and has had anxiety about taking medication on empty stomach. Patient endorses intent to eat and take medication as prescribed but presents with complacency. Patient also endorses inability to work due to inability to care for self and lack of energy. Patient was seen at [facility] last night for similar symptoms and was evaluated by tele-psych referred patient to outpatient provider. Patient Strengths Patient has support from family, patient is seeking help. Current Behavioral Health Provider(s) No current MH providers, Include Facility, Provider, Ph. # patietn received referral for it operations analystMARYCRUZ Foley. Patient is prescribed dulozetine, Hydroxyzine, Lamotragine. Psych. Hx Mental Health and Chemical Patient has hx of Panic Dependency Disorder, Trauma, Anxiety and Depression. Patient also has hx of SI. Family Hx of Behavioral Abuse Patient has hx of trauma but does not disclose. Psychiatric Hospitalizations (date(s)/ Patient has hx of voluntary BH location) inpatient hospitalization at [facility] in 2022 due to concern for SI. Psychosocial information & Support Patient is 28 y/o female who Systems resides alone in [place]. Patient has 3 y/o son who has been recently staying with son 's father. Patient has family as supports . School/Work Not working at the moment. Legal Concerns Legal Matters - Outstanding Issues None reported Mental Status Orientation (Person/Place/Time) A/Ox4 Stated Mood anxiety is really bad Affect (Congruent with Mood?) flat/euthymic at times, somewhat congruent with mood. Thought Content - Specify/Describe Patient denies auditory and Obsessions, Delusions, Hallucinations visual hallucinations. Patient endorses safety at home. Thought Processes (Tkanhen-Cglxucxs-Foen coherent Fofkqunw-Cgsnrqwh-Eqhivrsohy- Zycddxediobrue-Mjgexuy-Zqpqpqgbvwlq- Thought Blocking) Speech (Oazhzk-Zwse-Dkijcbn-Rapid-Soft- soft/slow Loud-Pressured) Motor (Euhoar-Ynrfesgdx-Gycb-Other) normal/slow Insight (Hmec-Rrhq-Qsxf/Limited) fair Judgement (Rblu-Qnjh-Owrz/Limited) fair/limited Impulse Control (Adequate-Impaired) adequate Memory (Pkkckwmsn-Butuai-Bpcudr, intact, not formally assessed Impaired-Intact) Concentration (Intact-Impaired) intact Attention (Intact-Impaired) intact Behavior (Appropriate-Inappropriate) appropriate Additional Comment patient presents as calm, cooperative, and communicative . Risk Assessment Suicidal Ideation (Plan) No Homicidal Ideation (Plan) No Comment Patient denies current SI, but states that she would be fine if she . Intervention Intervention PROFESSOR OF MUSIC enters room to meet with patient, present in room is patient's sister. Patient gives consent for sister to be present. Patient endorses concern for increase in Anxiety, Depression, not eating or drinking and caring for self. Patient's sister endorses these concerns as well. It is reported that patient's son is in the care of his father due to patient's inability to function and care for self. Patient endorses preference in seeking voluntary inpatient hospitalization. It is the opinion of this PROFESSOR OF MUSIC that patient would benefit from voluntary inpatient hospitalization for crisis stabilization and medication management. PROFESSOR OF MUSIC reviews this with ED provider Dr. Pacheco who indicates agreement and understanding. Patient has not been evaluated by ED provider at this time, awaiting medical clearance at this time . Plan RA Plan ED team to seek voluntary inpatient placement for patient upon medical clearance . PROFESSOR OF MUSIC to provide patient with outpatient resources as well. Kenyetta Au, LABORATORY CUREMAN
[2024-03-27 19:58] LABS: Thyroid Stimulating Hormone 1.41 uIU/mL (0.47-4.68)
--- NOTE | 2024-03-27 20:48 | PC.NURSE ---
Pt resting quietly with eyes closed, resps even and not labored. No distress noted at this time.
--- NOTE | 2024-03-27 21:54 | PC.NURSE ---
No change in patient condition or status. Pt resting quietly with eyes closed, resps even and not labored. No distress noted at this time. Pt reouses easily to verbal stimuli. Pt cell phone with patient sticker at nurses station on tile sorter per patient request. No other needs or complaints stated at this time.
--- NOTE | 2024-03-27 22:25 | PC.NURSE ---
No change in patient consition or status. Pt resting quietly with eyes closed, resps even and not labored. No distress noted at this time.
[2024-03-27] MEDS: hydrOXYzine HCL 25 MG TABLET PO (23:35)
== END 2024-03-27 23:49 | disposition short-term general hospital (02) ==
PROVIDERS: Emergency Provider Emergency Medicine; PCP Student in an Organized Health Care Education/Training Program
DX: F41.9 Anxiety disorder, unspecified (principal); F32.A Depression, unspecified; R63.0 Anorexia; Z68.29 Body mass index [BMI] 29.0-29.9, adult; Z72.89 Other problems related to lifestyle
CPT/HCPCS: 36415; 80053; 80305; 80320; 80329; 81001; 81025; 84443; 85025; 87635; 99284; A9270; G0480

== ENCOUNTER 2024-05-31 19:18 | Emergency (ER) | payer OTHER, SELFPAY ==
[2024-05-31 19:22] VITALS: BP 106/71; PULSE 128; RESP 16; TEMP 36.6; O2SAT 99; BMI 30.1
--- NOTE | 2024-05-31 19:48 | PC.NURSE ---
Labs drawn from existing IV line. Site cleaned and redressed.
[2024-05-31 20:08] LABS: Alanine Aminotransferase 19 IU/L (<35); Albumin 4.5 g/dL (3.5-5.0); Albumin Globulin Ratio 1.5 (1.0-2.8); Alkaline Phosphatase 81 U/L (38-126); Aspartate Aminotransferase 30 IU/L (14-36); BUN Creatinine Ratio 13.6 (6-22); Blood Urea Nitrogen 11 mg/dL (7-17); Calcium 9.2 mg/dL (8.4-10.2); Carbon Dioxide 15 mmol/L (22-32); Chloride 103 mmol/L (98-107); Estimated Glomerular Filt Rate > 60 mL/min (>60); Glucose 80 mg/dL (70-100); HEMOLYSIS 48 (0-50); Magnesium 1.8 mg/dL (1.6-2.3); Phosphorous 4.1 mg/dL (2.5-4.5); Potassium 3.8 mmol/L (3.4-5.1); Sodium 138 mmol/L (137-145); Total Protein 7.5 g/dL (6.3-8.2)
[2024-05-31 20:09] LABS: Add Manual Diff / Slide Review NO; Basophils Absolute Auto 100 /uL (0-100); Basophils Percent Auto 1.1 % (0-2); Eosinophils Absolute Auto 0 /uL (0-450); Hematocrit 49.8 % (36-46); Hemoglobin 17.1 g/dL (12.0-16.0); Lymphocytes Absolute Auto 1600 /uL (1100-4500); Lymphocytes Percent Auto 32.1 % (25-40); Mean Corpuscular HGB Conc 34.3 % (30-36); Mean Corpuscular Hemoglobin 29.5 PG (26-34); Mean Corpuscular Volume 86.1 fL (80-100); Monocytes Absolute Auto 600 /uL (0-900); Monocytes Percent Auto 12.3 % (3-14); Neutrophils Absolute Auto 2600 /uL (1500-7000); Neutrophils Percent Auto 53.5 % (50-75); Platelet Count 244 X10^3/uL (150-400); Red Blood Cell Count 5.79 X10^6/uL (4.0-5.2); Red Cell Distribution Width 14.2 % (11.6-14.8); White Blood Cell Count 4.8 X10^3/uL (4.5-11.0)
--- NOTE | 2024-05-31 23:00 | ED.WEAKNESS ---
HPI - Weakness <Tom Valdovinos DO - Last Filed: 06/01/24 16:40> General Chief complaint: Weakness Stated complaint: Anorexia Time Seen by Provider: 05/31/24 23:00 Source: patient and EMS Mode of arrival: EMS History of Present Illness HPI Narrative: 29-year-old female with a past medical history of anorexia, anxiety, depression presents to the emergency department from home via EMS for evaluation of generalized weakness, worsening anorexia symptoms, she states that about a week ago she started having a cold, she states that this caused her to have decreased appetite and since then it feels like she is now having worsening symptoms of her anorexia, she states that she just feels like she does not want to eat not complaining of any headache visual disturbances chest pain shortness breath fever chills nausea vomiting abdominal pain or any other GI/ symptoms time. Denies any suicidal or homicidal ideations, however she states that she does not feel safe going home because she feels like she is about to spiral she states that she has had inpatient treatment in the past for this approximately 2 months ago states that she feels like it did not help. She is requesting to talk to social work here in the emergency department. Related Data Home Medications Medication Instructions Recorded Confirmed levonorgestrel 21 mcg/24 hr (up to intrauterine 09/08/23 05/16/24 8 years) 52 mg intrauterine device (Mirena) Previous Rx's Medication Instructions Recorded albuterol sulfate 90 mcg/actuation 2 puff inhalation Q4-6H PRN 02/12/24 aerosol inhaler shortness of breath or wheezing #8.5 grams duloxetine 20 mg capsule,delayed 20 mg PO DAILY #90 caps 03/25/24 release mirtazapine 15 mg tablet 30 mg (2 x 15 mg) PO DAILY #60 tabs 04/15/24 duloxetine 30 mg capsule,delayed 30 mg PO DAILY #7 caps 04/18/24 release Allergies Allergy/AdvReac Type Severity Reaction Status Date / Time No Known Drug Allergies Allergy Verified 05/16/24 13:38 Review of Systems <Tom Valdovinos DO - Last Filed: 06/01/24 16:40> Review of Systems Narrative: General: Denies fever, chills, weight loss HEENT: Denies headache, eye drainage, eye irritation, head trauma, sore throat, voice change Cardiovascular: Denies any chest pain, palpitations, tachycardia Respiratory: Denies any shortness of breath, cough, wheeze, stridor GI/: Denies any abdominal pain, nausea, vomiting, diarrhea, bright red blood per rectum, melanotic stools, urinary frequency, urinary retention, dysuria, hematuria MSK: Denies any joint pain, muscle pains, swelling Skin: Denies any rashes, lesions, discoloration Neuro: Denies any headache, lightheadedness, dizziness, fainting, weakness Psych: Positive anorexia, Denies SI/HI Patient History <Tom Valdovinos DO - Last Filed: 06/01/24 16:40> Medical History Panic disorder Trauma Anxiety and depression (~2014) Surgical History S/P H/O wisdom tooth extraction (~2014) Family History Father No problems noted. Mother Depression Grandfather Congestive heart failure History of open heart surgery Grandmother Congestive heart failure History of open heart surgery Grandfather No problems noted. 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 needs: No Smoking Status: Current every day smoker second hand exposure: No alcohol intake: former substance use type: does not use Smoking Status: Current every day smoker tobacco type: vaping alcohol intake frequency: 0-2 drinks per day Exam <Tom Valdovinos DO - Last Filed: 06/01/24 16:40> Narrative Exam Narrative: General: Cooperative, comfortable, well-developed, not in acute distress HEENT: Normocephalic, atraumatic, PERRLA, normal sclera, eyelids normal, Neck: Active full range of motion, atraumatic Chest: Normal to inspection, negative crepitus, no overlying erythema ecchymosis Respiratory: Normal respiratory effort, not in acute respiratory distress, clear to auscultation bilaterally negative cough, wheeze, tachypnea, rhonchi, rales Cardiology: Regular rate rhythm negative gallop, murmur, rubs GI/: Normal to inspection, soft, nonrigid, no tenderness to palpation, exam deferred MSK: Full range of active range of motion of all 4 extremities, atraumatic Skin: No rashes lesions noted Neuro: Alert awake oriented x3, moves all 4 extremities spontaneously, cranial nerves intact, able to answer all questions appropriately follows commands appropriately Psych: Cooperative, negative suicidal or homicidal ideations, patient tearful Initial Vital Signs Initial Vital Signs: Vital Signs Temperature 97.8 F 05/31/24 19:22 Pulse Rate 128 H 05/31/24 19:22 Respiratory Rate 16 05/31/24 19:22 Blood Pressure 106/71 05/31/24 19:22 Pulse Oximetry 99 05/31/24 19:22 Oxygen Delivery Method Room Air 05/31/24 19:22 <January Araya MD - Last Filed: 06/01/24 15:07> Initial Vital Signs Initial Vital Signs: Vital Signs Temperature 97.8 F 05/31/24 19:22 Pulse Rate 128 H 05/31/24 19:22 Respiratory Rate 16 05/31/24 19:22 Blood Pressure 106/71 05/31/24 19:22 Pulse Oximetry 99 05/31/24 19:22 Oxygen Delivery Method Room Air 05/31/24 19:22 Course <Tom Valdovinos DO - Last Filed: 06/01/24 16:40> Orders Ordered: ED Orders 06/01/24 12:05 TSH [Thyroid Stimulating Hormone] Stat 06/01/24 12:12 COVID19 - ADMIT ([employer]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 swab/PCR) Stat Discontinued Medications Sodium Chloride (Normal Saline 0.9%) 1,000 mls @ 1,000 mls/hr IV BOLUS ONE Stop: 06/01/24 00:24 Last Infusion: 06/01/24 00:33 Dose: Infused Documented By: Admin: 05/31/24 23:30 Dose: 1,000 mls/hr Documented By: Vital Signs Vital signs: Vital Signs - 8 hr 06/01/24 09:32 06/01/24 09:33 06/01/24 09:33 Temperature Pulse Rate 88 88 Respiratory Rate Blood Pressure 107/62 Pulse Oximetry 100 Oxygen Delivery Method 06/01/24 09:34 06/01/24 13:37 06/01/24 13:38 Temperature 98.1 F 97.8 F Pulse Rate 79 83 84 Respiratory Rate 14 Blood Pressure 107/65 Pulse Oximetry 100 97 98 Oxygen Delivery Method Room Air 06/01/24 13:38 06/01/24 15:16 Temperature 98.0 F Pulse Rate 83 Respiratory Rate 18 Blood Pressure 97/62 97/69 Pulse Oximetry 98 Oxygen Delivery Method Room Air <January Araya MD - Last Filed: 06/01/24 15:07> Orders Ordered: ED Orders 06/01/24 12:05 TSH [Thyroid Stimulating Hormone] Stat 06/01/24 12:12 COVID19 - ADMIT ([employer]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 swab/PCR) Stat Discontinued Medications Sodium Chloride (Normal Saline 0.9%) 1,000 mls @ 1,000 mls/hr IV BOLUS ONE Stop: 06/01/24 00:24 Last Infusion: 06/01/24 00:33 Dose: Infused Documented By: Admin: 05/31/24 23:30 Dose: 1,000 mls/hr Documented By: Vital Signs Vital signs: Vital Signs - 8 hr 06/01/24 09:32 06/01/24 09:33 06/01/24 09:33 Temperature Pulse Rate 88 88 Respiratory Rate Blood Pressure 107/62 Pulse Oximetry 100 Oxygen Delivery Method 06/01/24 09:34 06/01/24 13:37 06/01/24 13:38 Temperature 98.1 F 97.8 F Pulse Rate 79 83 84 Respiratory Rate 14 Blood Pressure 107/65 Pulse Oximetry 100 97 98 Oxygen Delivery Method Room Air 06/01/24 13:38 06/01/24 15:16 Temperature 98.0 F Pulse Rate 83 Respiratory Rate 18 Blood Pressure 97/62 97/69 Pulse Oximetry 98 Oxygen Delivery Method Room Air MDM - Weakness <Tom Valdovinos DO - Last Filed: 06/01/24 16:40> Lab Data 05/31/24 19:45 05/31/24 19:45 Labs: Lab Results 05/31/24 06/01/24 06/01/24 Range/Units 19:45 02:13 12:05 WBC 4.8 (4.5-11.0) X10^3/uL RBC 5.79 H (4.0-5.2) X10^6/uL Hgb 17.1 H (12.0-16.0) g/dL Hct 49.8 H (36-46) % MCV 86.1 (80-100) fL MCH 29.5 (26-34) PG MCHC 34.3 (30-36) % RDW 14.2 (11.6-14.8) % Plt Count 244 (150-400) X10^3/uL Neut % (Auto) 53.5 (50-75) % Lymph % (Auto) 32.1 (25-40) % [place] % (Auto) 12.3 (3-14) % Eos % (Auto) 1.0 L (2-4) % Baso % (Auto) 1.1 (0-2) % Neut # (Auto) 2600 (3799-7002) /uL Lymph # (Auto) 1600 (4186-7420) /uL [place] # (Auto) 600 (0-900) /uL Eos # (Auto) 0 (0-450) /uL Baso # (Auto) 100 (0-100) /uL Sodium 138 (137-145) mmol/L Potassium 3.8 (3.4-5.1) mmol/L Chloride 103 (98-107) mmol/L Carbon Dioxide 15 L (22-32) mmol/L BUN 11 (7-17) mg/dL Creatinine 0.81 (0.52-1.04) mg/dL Estimated GFR > 60 (>60) mL/min BUN/Creatinine Ratio 13.6 (6-22) Glucose 80 (70-100) mg/dL Calcium 9.2 (8.4-10.2) mg/dL Phosphorus 4.1 (2.5-4.5) mg/dL Magnesium 1.8 (1.6-2.3) mg/dL Total Bilirubin 1.0 (0.2-1.3) mg/dL AST 30 (14-36) IU/L ALT 19 (<35) IU/L Alkaline Phosphatase 81 (38-126) U/L Total Protein 7.5 (6.3-8.2) g/dL Albumin 4.5 (3.5-5.0) g/dL Globulin 3.0 (1.7-4.1) g/dL Albumin/Globulin Ratio 1.5 (1.0-2.8) TSH 2.00 (0.47-4.68) uIU/mL U Opiates 300ng/mL cut Negative (Negative) Ur Oxycodone Screen Negative (Negative) Urine Methadone Screen Negative (Negative) Ur Barbiturates Screen Negative (Negative) U Tricyclic Antidepress Negative (Negative) Ur Phencyclidine Scrn Negative (Negative) Ur Amphetamines Screen Negative (Negative) U Methamphetamines Scrn Negative (Negative) Ur MDMA Scrn (Ecstasy) Negative (Negative) U Benzodiazepines Scrn Negative (Negative) Urine Cocaine Screen Negative (Negative) U Marijuana (THC) Screen Negative (Negative) Urine pH Normal (Normal) Urine Specific [place] Normal (Normal) Ur Creatinine Normal (Normal) SARS-CoV-2 (PCR) (Negative) 06/01/24 Range/Units 12:12 WBC (4.5-11.0) X10^3/uL RBC (4.0-5.2) X10^6/uL Hgb (12.0-16.0) g/dL Hct (36-46) % MCV (80-100) fL MCH (26-34) PG MCHC (30-36) % RDW (11.6-14.8) % Plt Count (150-400) X10^3/uL Neut % (Auto) (50-75) % Lymph % (Auto) (25-40) % [place] % (Auto) (3-14) % Eos % (Auto) (2-4) % Baso % (Auto) (0-2) % Neut # (Auto) (7059-2047) /uL Lymph # (Auto) (6913-2151) /uL [place] # (Auto) (0-900) /uL Eos # (Auto) (0-450) /uL Baso # (Auto) (0-100) /uL Sodium (137-145) mmol/L Potassium (3.4-5.1) mmol/L Chloride (98-107) mmol/L Carbon Dioxide (22-32) mmol/L BUN (7-17) mg/dL Creatinine (0.52-1.04) mg/dL Estimated GFR (>60) mL/min BUN/Creatinine Ratio (6-22) Glucose (70-100) mg/dL Calcium (8.4-10.2) mg/dL Phosphorus (2.5-4.5) mg/dL Magnesium (1.6-2.3) mg/dL Total Bilirubin (0.2-1.3) mg/dL AST (14-36) IU/L ALT (<35) IU/L Alkaline Phosphatase (38-126) U/L Total Protein (6.3-8.2) g/dL Albumin (3.5-5.0) g/dL Globulin (1.7-4.1) g/dL Albumin/Globulin Ratio (1.0-2.8) TSH (0.47-4.68) uIU/mL U Opiates 300ng/mL cut (Negative) Ur Oxycodone Screen (Negative) Urine Methadone Screen (Negative) Ur Barbiturates Screen (Negative) U Tricyclic Antidepress (Negative) Ur Phencyclidine Scrn (Negative) Ur Amphetamines Screen (Negative) U Methamphetamines Scrn (Negative) Ur MDMA Scrn (Ecstasy) (Negative) U Benzodiazepines Scrn (Negative) Urine Cocaine Screen (Negative) U Marijuana (THC) Screen (Negative) Urine pH (Normal) Urine Specific [place] (Normal) Ur Creatinine (Normal) SARS-CoV-2 (PCR) Positive H (Negative) Point of Care Testing Test Results Negative MDM Narrative Medical decision making narrative: 29-year-old female with a history of anxiety depression anorexia presents to the emergency department via EMS for generalized weakness, worsening anorexia symptoms. She states that a week ago she felt sick with flu-like symptoms states that this made her lose her appetite initially and since then she feels like she has been spiraling not wanting to eat she denies any symptoms such as headache visual disturbances chest pain shortness breath fever chills nausea vomiting abdominal pain or any other GI/ symptoms. She states that she was recently in an inpatient rehab for this proximally 2 months ago states that she felt like it did not help, she is denying any suicidal or homicidal ideation and is just requesting discussion with social work for her worsening symptoms. She feels like she is going to spiral and end up hurting herself by not eating and is trying to ?get ahead of this. Patient has been medically cleared at this point. 0700: Patient was signed out to Dr. araya, patient pending social work consult currently medically cleared at this time. <January Araya MD - Last Filed: 06/01/24 15:07> Lab Data Labs: Lab Results 05/31/24 06/01/24 06/01/24 Range/Units 19:45 02:13 12:05 WBC 4.8 (4.5-11.0) X10^3/uL RBC 5.79 H (4.0-5.2) X10^6/uL Hgb 17.1 H (12.0-16.0) g/dL Hct 49.8 H (36-46) % MCV 86.1 (80-100) fL MCH 29.5 (26-34) PG MCHC 34.3 (30-36) % RDW 14.2 (11.6-14.8) % Plt Count 244 (150-400) X10^3/uL Neut % (Auto) 53.5 (50-75) % Lymph % (Auto) 32.1 (25-40) % [place] % (Auto) 12.3 (3-14) % Eos % (Auto) 1.0 L (2-4) % Baso % (Auto) 1.1 (0-2) % Neut # (Auto) 2600 (6302-5975) /uL Lymph # (Auto) 1600 (9183-2879) /uL [place] # (Auto) 600 (0-900) /uL Eos # (Auto) 0 (0-450) /uL Baso # (Auto) 100 (0-100) /uL Sodium 138 (137-145) mmol/L Potassium 3.8 (3.4-5.1) mmol/L Chloride 103 (98-107) mmol/L Carbon Dioxide 15 L (22-32) mmol/L BUN 11 (7-17) mg/dL Creatinine 0.81 (0.52-1.04) mg/dL Estimated GFR > 60 (>60) mL/min BUN/Creatinine Ratio 13.6 (6-22) Glucose 80 (70-100) mg/dL Calcium 9.2 (8.4-10.2) mg/dL Phosphorus 4.1 (2.5-4.5) mg/dL Magnesium 1.8 (1.6-2.3) mg/dL Total Bilirubin 1.0 (0.2-1.3) mg/dL AST 30 (14-36) IU/L ALT 19 (<35) IU/L Alkaline Phosphatase 81 (38-126) U/L Total Protein 7.5 (6.3-8.2) g/dL Albumin 4.5 (3.5-5.0) g/dL Globulin 3.0 (1.7-4.1) g/dL Albumin/Globulin Ratio 1.5 (1.0-2.8) TSH 2.00 (0.47-4.68) uIU/mL U Opiates 300ng/mL cut Negative (Negative) Ur Oxycodone Screen Negative (Negative) Urine Methadone Screen Negative (Negative) Ur Barbiturates Screen Negative (Negative) U Tricyclic Antidepress Negative (Negative) Ur Phencyclidine Scrn Negative (Negative) Ur Amphetamines Screen Negative (Negative) U Methamphetamines Scrn Negative (Negative) Ur MDMA Scrn (Ecstasy) Negative (Negative) U Benzodiazepines Scrn Negative (Negative) Urine Cocaine Screen Negative (Negative) U Marijuana (THC) Screen Negative (Negative) Urine pH Normal (Normal) Urine Specific [place] Normal (Normal) Ur Creatinine Normal (Normal) SARS-CoV-2 (PCR) (Negative) 06/01/24 Range/Units 12:12 WBC (4.5-11.0) X10^3/uL RBC (4.0-5.2) X10^6/uL Hgb (12.0-16.0) g/dL Hct (36-46) % MCV (80-100) fL MCH (26-34) PG MCHC (30-36) % RDW (11.6-14.8) % Plt Count (150-400) X10^3/uL Neut % (Auto) (50-75) % Lymph % (Auto) (25-40) % [place] % (Auto) (3-14) % Eos % (Auto) (2-4) % Baso % (Auto) (0-2) % Neut # (Auto) (3238-8574) /uL Lymph # (Auto) (2087-0849) /uL [place] # (Auto) (0-900) /uL Eos # (Auto) (0-450) /uL Baso # (Auto) (0-100) /uL Sodium (137-145) mmol/L Potassium (3.4-5.1) mmol/L Chloride (98-107) mmol/L Carbon Dioxide (22-32) mmol/L BUN (7-17) mg/dL Creatinine (0.52-1.04) mg/dL Estimated GFR (>60) mL/min BUN/Creatinine Ratio (6-22) Glucose (70-100) mg/dL Calcium (8.4-10.2) mg/dL Phosphorus (2.5-4.5) mg/dL Magnesium (1.6-2.3) mg/dL Total Bilirubin (0.2-1.3) mg/dL AST (14-36) IU/L ALT (<35) IU/L Alkaline Phosphatase (38-126) U/L Total Protein (6.3-8.2) g/dL Albumin (3.5-5.0) g/dL Globulin (1.7-4.1) g/dL Albumin/Globulin Ratio (1.0-2.8) TSH (0.47-4.68) uIU/mL U Opiates 300ng/mL cut (Negative) Ur Oxycodone Screen (Negative) Urine Methadone Screen (Negative) Ur Barbiturates Screen (Negative) U Tricyclic Antidepress (Negative) Ur Phencyclidine Scrn (Negative) Ur Amphetamines Screen (Negative) U Methamphetamines Scrn (Negative) Ur MDMA Scrn (Ecstasy) (Negative) U Benzodiazepines Scrn (Negative) Urine Cocaine Screen (Negative) U Marijuana (THC) Screen (Negative) Urine pH (Normal) Urine Specific [place] (Normal) Ur Creatinine (Normal) SARS-CoV-2 (PCR) Positive H (Negative) Point of Care Testing Test Results Negative MDM Narrative Medical decision making narrative: 29-year-old female with a history of anxiety depression anorexia presents to the emergency department via EMS for generalized weakness, worsening anorexia symptoms. She states that a week ago she felt sick with flu-like symptoms states that this made her lose her appetite initially and since then she feels like she has been spiraling not wanting to eat she denies any symptoms such as headache visual disturbances chest pain shortness breath fever chills nausea vomiting abdominal pain or any other GI/ symptoms. She states that she was recently in an inpatient rehab for this proximally 2 months ago states that she felt like it did not help, she is denying any suicidal or homicidal ideation and is just requesting discussion with social work for her worsening symptoms. She feels like she is going to spiral and end up hurting herself by not eating and is trying to ?get ahead of this. Patient has been medically cleared at this point. 0700: Patient was signed out to Dr. araya, patient pending social work consult currently medically cleared at this time. 1200 discussion with BRIM PRESSER. Feels that she is going to meet criteria for hospital admission due to grave disability. Will add urine , EKG, COVID testing and TSH to current labs. MS double you will begin looking for bed availability Discharge Plan Departure Patient Disposition: Home Clinical Impression: Anorexia nervosa, Acute situational disturbance, Lab test positive for detection of COVID-19 virus Depression Qualifiers: Depression Type: major depressive disorder Major depression recurrence: recurrent Active/Remission status: remission status unspecified Qualified Code(s): F33.9 - Major depressive disorder, recurrent, unspecified Instructions: DI for Anorexia Nervosa Activity Restrictions/Additional Instructions: Thank you for coming in today and actually reaching out for help. Unfortunately, you are still testing positive for COVID, clearly the upper respiratory infection that you had last week with all of your symptoms now improved. Because of this, inpatient psychiatric facilities are not going to be able to accept you. You have been talking with our social insurance adviser. I believe discharge home at this point is safe. Please do continue all of your current medications as well as scheduled cancelling and wraparound services. If you find that you are getting worse, please return to the ER and we can see if inpatient beds are available once your COVID test is negative. Prescriptions: No Action Mirena 21 mcg/24 hours (8 yrs) 52 mg intrauterine device intrauterine mirtazapine 15 mg tablet 30 mg PO DAILY Qty: 60 3RF duloxetine 20 mg capsule,delayed release(DR/EC) 20 mg PO DAILY Qty: 90 3RF duloxetine 30 mg capsule,delayed release(DR/EC) 30 mg PO DAILY Qty: 7 0RF Rx Instructions: titrating dose albuterol sulfate 90 mcg/actuation HFA aerosol inhaler 2 puff INHALATION Q4-6H PRN (Reason: shortness of breath or wheezing) Qty: 8.5 0RF Referrals: Deborah Acevedo MD [Primary Care Provider] - Stand Alone Forms: Patient Portal/API/Survey
[2024-05-31] MEDS: SODIUM CHLORIDE 0.9% 1,000 ML 1000 ML IV (23:30)
[2024-06-01 02:21] LABS: Ur Creatinine Normal (Normal); Ur Specific Gravity Normal (Normal); Urine pH Normal (Normal)
[2024-06-01 02:24] LABS: UR Morphine/Opiate cutoff 300 Negative (Negative); Urine Amphetamines Negative (Negative); Urine Barbiturates Negative (Negative); Urine Benzodiazepines Negative (Negative); Urine Cocaine Negative (Negative); Urine MDMA Negative (Negative); Urine Methadone Negative (Negative); Urine Methamphetamines Negative (Negative); Urine Oxycodone Negative (Negative); Urine Phencyclidine Negative (Negative); Urine Tetrahydrocannabinol Negative (Negative); Urine Tricyclic Antidepressant Negative (Negative)
[2024-06-01 09:32] VITALS: PULSE 88
[2024-06-01 09:33] VITALS: BP 107/62; PULSE 88; O2SAT 100
[2024-06-01 09:34] VITALS: BP 107/65; PULSE 79; RESP 14; TEMP 36.7; O2SAT 100
--- NOTE | 2024-06-01 12:41 | CM.SWNOTE ---
ED BAT PERSON Assessment BAT PERSON - Ultrasound Technician Assessment BAT PERSON/Ultrasound Technician Assessment Time Spent with Patient Start date 06/01/24 Visit Start Time 11:40 End date 06/01/24 Visit End Time 12:00 Total time Care Management spent on 20 minutes patient visit-in minutes Mental Health Screening Include Onset, Duration, Intensity Presenting Problem Patient presents to ED due to concern for increase in Depression, passive thoughts of SI and grave disability. Patient states she has not ate or drank in the last week, stopped taking her prescribed rx and has not been sleeping well or performing hygiene daily activity or going to work. Precipitating Event(s) Patient states that she got sick about a week ago and declined since then. Patient states she called 911 last night because she was concerned about her SI, she states she couldn't drive herself and did not have anyone that could take her to the ED. Patient had similar episode in March resulting in hospitalization at [facility]. Patient has been engaging with IOP at [facility] but has not found it to be helpful. Patient Strengths Patient is seeking help, patient is engaged in IOP, patient has some support from family. Current Behavioral Health Provider(s) Patient is currently engaged Include Facility, Provider, Ph. # in [facility] IOP, services likely to end in the next month due to short term services. Patient is interested in further outpatient MH services. Psych. Hx Mental Health and Chemical Patient has hx of Depression, Dependency Anxiety, Panic Disorder, concerns for eating disorder, trauma and SI. Patient denies any substance or ETOH use. Patient is prescribed Duloxetine 40 mg and Mirtazapine 30 mg Family Hx of Behavioral Abuse Patient has hx of trauma and does not disclose this. Psychiatric Hospitalizations (date(s)/ Patient was voluntary at [facility]) [facility] for voluntary inpatient hospitalization in 2024. Psychosocial information & Support Patient is 29 y/o female who Systems resides alone in [place]. Patient has 3 y/o son who is currently residing with son's father. Patient has family as support and they are all very concerned about patient, per patient's report. 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 Patient endorses that she has not been able to work in recent weeks. Legal Concerns Legal Matters - Outstanding Issues None reported Mental Status Orientation (Person/Place/Time) A/Ox4 Stated Mood better than last night Affect (Congruent with Mood?) Flat, congruent with mood Thought Content - Specify/Describe Patient denies concerns for Obsessions, Delusions, Hallucinations visual or auditory hallucinations and paranoia. Thought Processes (Nkvgabp-Xpflszgl-Ofcr coherent Ldecrwac-Xxrjpsoq-Kjbfvovqew- Btmzwzwuqdahor-Umtcoyh-Lgtclldflsby- Thought Blocking) Speech (Efhyxl-Jhpb-Qvgcded-Rapid-Soft- soft/normal Loud-Pressured) Motor (Hzuzaa-Iveflxaua-Gspx-Other) normal Insight (Wtkh-Gevb-Pqpj/Limited) fair Judgement (Csio-Wflk-Fsun/Limited) fair Impulse Control (Adequate-Impaired) adequate Memory (Relqcideu-Udklnm-Lhagsz, intact, not formally assessed Impaired-Intact) Concentration (Intact-Impaired) intact Attention (Intact-Impaired) intact Behavior (Appropriate-Inappropriate) appropriate Additional Comment patient presents as calm, cooperative and communicative Risk Assessment Suicidal Ideation (Plan) Yes Homicidal Ideation (Plan) No Comment Patient denies HI. Patient endorses recent increase in thoughts of SI, patient denies intent or plans . Patient states that last night her depression and SI niko to the level that she felt she needed to go to the ED. Patient states that she has thoughts of not wanting to wake up and thoughts of being okay if she in a car accident or if she at all . Intervention Intervention BAT PERSON enters room to meet with patient. Patient endorses concern for increase in depression, SI and concern for not eating or drinking for the last week, not taking rx and not caring for self. Patient endorses concern for staying up til 2 am and not sleeping well. Patient states that she has not showered since Monday or Monday. Patient states that she has declined in caring for her hygiene needs and has been isolating in her room, not talking to anyone, not leaving the house and not working. Patient endorses preference to seek inpatient hospitalization, patient states she found this helpful in the past. Patient states that her medications help when she takes them. Patient endorses that she has been in a spiral the last week and is concerned that the spiral will continue if she goes home. It is the opinion of this BAT PERSON that patient would benefit from and be appropriate for voluntary inpatient hospitalization for crisis stabilization and medication management. There is concern that patient is gravely disabled at this time. BAT PERSON reviews this with ED provider Dr. Pope who indicates agreement and understanding. Plan RA Plan BAT PERSON to seek voluntary inpatient hospitalization for patient upon medical clearance . Kenyetta Au, SUPERVISOR [employer]
[2024-06-01 12:59] LABS: COVID19 - ADMIT (NP swab/PCR) POSITIVE (Negative)
[2024-06-01 13:37] VITALS: PULSE 83; O2SAT 97
[2024-06-01 13:38] VITALS: BP 97/62; PULSE 84; TEMP 36.6; O2SAT 98
--- NOTE | 2024-06-01 14:51 | PC.NURSE ---
Pt has been resting in bed today watching TV. She is in good spirits and ambulates to bathroom as needed. Pt has been offered breakfast and lunch. She is hydrating well and had approximately 25% of each meal. At this time, she continues to deny thoughts of self harm, SI and HI. She is voluntary in her treatment and working her plan to obtain support during times of exacerbation of symptoms. denies pain and illness. States overall weakness is improving some.
[2024-06-01 15:16] VITALS: BP 97/69; PULSE 83; RESP 18; TEMP 36.7; O2SAT 98
--- NOTE | 2024-06-01 15:41 | CM.SWNOTE ---
Addendum entered by Kenyetta Au 06/01/24 16:43: EXT JS DEVELOPER is informed that patient does not have a ride back home until 10pm. team supervisor signs taxi voucher for patient to safely return home at a reasonable hour. ONDINA Arriaza Original Note: ED EXT JS DEVELOPER Note EXT JS DEVELOPER calls [facility], it is reported they have beds, EXT JS DEVELOPER faxes clinicals for review. It is identified in patient's recent covid swab that patient is positive for covid. EXT JS DEVELOPER discusses this with [facility] and it is reported that patient is not out of the timeframe window of start of symptoms and cannot be accepted at this time. Patient states that symptoms started 8 days ago and she was symptom free from covid on Monday. EXT JS DEVELOPER reviews this with patient and states that other facilities have similar covid restrictions. Patient states that she does not need to try to seek other facilities and understands the situation and feels safe to d/c to home at this time with outpatient f/u. It is the opinion of this EXT JS DEVELOPER that patient is safe to d/c home with outpatient follow up. EXT JS DEVELOPER contacts patient's PCP office requesting sooner PCP f/u appt. Patient states that her phone is out of service and the best way to reach her is via email. EXT JS DEVELOPER contacts [facility] regarding this and leaves requesting patient to be contacted via email by therapist for sooner f/u. Patient states that she is coordinating with family to have them bring her car to her so she can d/c to home. EXT JS DEVELOPER states that if symptoms worsen she can return to the ED but also endorses that placement will be more of an option in a couple days when patient is outside of covid symptoms window. EXT JS DEVELOPER provides patient with crisis contacts as well. Plan: patient to d/c to home upon medical clearance, and patient to f/u with PCP, [facility]. ONDINA Arriaza
== END 2024-06-01 15:17 | disposition home or self-care (01) ==
PROVIDERS: Student in an Organized Health Care Education/Training Program; Emergency Provider Emergency Medicine; PCP Student in an Organized Health Care Education/Training Program
DX: U07.1 COVID-19 (principal); F50.00 Anorexia nervosa, unspecified; F33.9 Major depressive disorder, recurrent, unspecified; F43.0 Acute stress reaction
CPT/HCPCS: 80053; 80305; 81025; 83735; 84100; 84443; 85025; 87635; 96360; 99284

== ENCOUNTER 2024-06-24 14:41 | Inpatient (IN) | payer OTHER, SELFPAY ==
[2024-06-24 14:52] VITALS: BP 141/80; PULSE 137; RESP 18; TEMP 37.2; O2SAT 98; BMI 26.7
[2024-06-24 15:47] LABS: Appearance Urine UA SL CLOUDY; Bilirubin Urine UA 1+ (NEGATIVE); Color Urine UA YELLOW; Glucose Urine UA NEGATIVE (Negative); Ketones Urine UA 3+ (NEGATIVE); Leukocyte Esterase Urine UA NEGATIVE (NEGATIVE); Nitrite Urine UA NEGATIVE (Negative); Occult Blood Urine UA NEGATIVE (Negative); Protein Urine UA TRACE (Negative); Specific Gravity Urine UA >=1.030 (1.000-1.035); UR Morphine/Opiate cutoff 300 Negative (Negative); Ur Creatinine Normal (Normal); Ur Specific Gravity Normal (Normal); Urine Amphetamines Negative (Negative); Urine Barbiturates Negative (Negative); Urine Benzodiazepines Negative (Negative); Urine Cocaine Negative (Negative); Urine MDMA Negative (Negative); Urine Methadone Negative (Negative); Urine Methamphetamines Negative (Negative); Urine Oxycodone Negative (Negative); Urine Phencyclidine Negative (Negative); Urine Tetrahydrocannabinol Negative (Negative); Urine Tricyclic Antidepressant Negative (Negative); Urine pH Normal (Normal)
[2024-06-24 16:08] LABS: Basophils Absolute Auto 0 /uL (0-100); Basophils Percent Auto 0.5 % (0-2); Eosinophils Absolute Auto 0 /uL (0-450); Eosinophils Percent Auto 0.4 % (2-4); Hematocrit 50.4 % (36-46); Hemoglobin 16.9 g/dL (12.0-16.0); Lymphocytes Absolute Auto 200 /uL (1100-4500); Lymphocytes Percent Auto 5.1 % (25-40); Mean Corpuscular HGB Conc 33.6 % (30-36); Mean Corpuscular Hemoglobin 29.4 PG (26-34); Mean Corpuscular Volume 87.6 fL (80-100); Monocytes Absolute Auto 300 /uL (0-900); Monocytes Percent Auto 8.3 % (3-14); Neutrophils Absolute Auto 3500 /uL (1500-7000); Neutrophils Percent Auto 85.7 % (50-75); Platelet Count 160 X10^3/uL (150-400); Red Blood Cell Count 5.75 X10^6/uL (4.0-5.2); Red Cell Distribution Width 14.3 % (11.6-14.8); White Blood Cell Count 4.1 X10^3/uL (4.5-11.0)
[2024-06-24 16:10] LABS: Bacteria Urine Few (2-10); Culture Indicated Urine Cult Not Indicated; Ictotest Urine Positive (Negative); RBC Urine 0-1/HPF (0-5/HPF); Squamous Epithelial Cell Urine 1-5 /HPF (0-5/HPF); Urine Volume 10mL (spun); WBC Urine 0-1/HPF (0-5/HPF)
[2024-06-24 16:24] LABS: Acetaminophen < 10 ug/mL (10-30); Alanine Aminotransferase 19 IU/L (<35); Albumin 5.2 g/dL (3.5-5.0); Albumin Globulin Ratio 1.5 (1.0-2.8); Alkaline Phosphatase 99 U/L (38-126); Aspartate Aminotransferase 31 IU/L (14-36); BUN Creatinine Ratio 6.1 (6-22); Bilirubin Total 1.6 mg/dL (0.2-1.3); Blood Urea Nitrogen 5 mg/dL (7-17); Calcium 9.6 mg/dL (8.4-10.2); Chloride 103 mmol/L (98-107); Estimated Glomerular Filt Rate > 60 mL/min (>60); Ethanol (ETOH) < 10 mg/dL; Globulin 3.5 g/dL (1.7-4.1); Glucose 68 mg/dL (70-100); HEMOLYSIS 27 (0-50); Potassium 4.3 mmol/L (3.4-5.1); Salicylate < 1.0 mg/dL (<20); Sodium 137 mmol/L (137-145); Total Protein 8.7 g/dL (6.3-8.2)
[2024-06-24 16:26] LABS: Carbon Dioxide 9 mmol/L (22-32)
[2024-06-24 16:39] LABS: Add Manual Diff / Slide Review SLIDE REVIEW; RBC Morphology Normal Morphology
[2024-06-24 16:51] LABS: Free T4, Direct Thyroxine 1.36 ng/dL (0.78-2.19)
--- NOTE | 2024-06-24 17:02 | CM.SWNOTE ---
ED FOREIGN EXCHANGE DEALER Assessment Note: FOREIGN EXCHANGE DEALER - Drilling Inspector Assessment FOREIGN EXCHANGE DEALER/Drilling Inspector Assessment Time Spent with Patient Start date 06/24/24 Visit Start Time 14:52 End date 06/24/24 Visit End Time 15:15 Total time Care Management spent on 23 minutes total patient visit-in minutes Mental Health Screening Include Onset, Duration, Intensity Presenting Problem Patient presents to the ED for suicidal ideation due to complications with her eating disorder, Avoidant/restrictive food intake disorder (ARFID). Patient states she has not eaten much in about 7-8 days, taking very minimal sips of water. Precipitating Event(s) Patient states she has been dealing with this eating disorder for about six years, she has had some presentations resulting in hospitalization this past year. Patient reports there has not been anything substantially stressful in her life that would cause her to do this other than kiya COVID and being off of her psychiatric medication (this happened in May). Patient Strengths Patient has good insight, is supported by her mom and 2 sisters. Patient has good protective factors of being employed, having a child, and coordinating with Intensive Outpatient Program as well as her Primary Care Provider (Dr. Deborah Valle). Current Behavioral Health Provider(s) Patient is currently enrolled Include Facility, Provider, Ph. # with [facility]. Psych. Hx Mental Health and Chemical Hx of Avoidant/restrictive Dependency food intake disorder (ARFID), Depression and anxiety. Family Hx of Behavioral Abuse None reported. Psychiatric Hospitalizations (date(s)/ [facility] - after location) suicidal ideation and plan ( her boyfriend at the time owned a gun in which she had access to). Most recently in March 2024, [facility] for similar symptoms. She was admitted on voluntary status for approximately 5 days. Psychosocial information & Support Patient is a 29yo female, Systems resident of [place]. Patient lives alone but she has the support of her mother, 2 sisters who live nearby. Patient states she is a mother of a boy, she shares custody with father of child. 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 Legal Concerns Legal Matters - Outstanding Issues None reported. Mental Status Orientation (Person/Place/Time) Aox3 Stated Mood Fatigued, weak. Affect (Congruent with Mood?) Flat, congruent with mood Thought Content - Specify/Describe None reported, none identified Obsessions, Delusions, Hallucinations during assessment. Thought Processes (Ptgxsgh-Rqvfbxky-Grxa Logical, goal directed. Bddbmacr-Pwclspox-Rxocaxprjd- Afaiuxcspufojg-Wsjckhg-Iskoypxruium- Thought Blocking) Speech (Aereyv-Lejg-Twxuguj-Rapid-Soft- Normal Loud-Pressured) Motor (Zcmmmh-Nhrguoucq-Xmxz-Other) Normal Insight (Kwkn-Pauz-Cybq/Limited) Good Judgement (Vgdn-Ijpw-Zuhr/Limited) Good Impulse Control (Adequate-Impaired) Impaired Memory (Roqckvnej-Nsxkob-Rxigrv, Intact Impaired-Intact) Concentration (Intact-Impaired) Intact Attention (Intact-Impaired) Intact Behavior (Appropriate-Inappropriate) Appropriate Additional Comment Patient is calm, cooperative and communicative during assessment. Risk Assessment Suicidal Ideation (Plan) Yes: Low Risk Homicidal Ideation (Plan) No Comment [place]-SUICIDE SEVERITY RATING SCALE 1) Have you wished you were or wished you could go to sleep and not wake up? Y 2) Have you actually had any thoughts of killing yourself? N 6) Have you ever done anything, started to do anything, or prepared to do anything to end your life? Y (Intentions of using father of baby's gun in his truck, did not attempt) Intervention Intervention Reviewed chart and discussed with ED Provider pt's medical status and discharge needs. It is identified that patient was here in March 2024 for similar symptoms, was transferred to [facility] for inpatient treatment. Patient also presented in May 2024 but could not transfer for inpatient due to kiya COVID. ED FOREIGN EXCHANGE DEALER meets with patient. Patient endorses not eating for about 7-8 days and feeling suicidal because of the hopelessness she feels with her mental health state and complications from Avoidant/ restrictive food intake disorder (ARFID). Patient denies any plans to kill self but she does not feel safe at home alone. Due to her ED, she has also not been able to take her medications duloxetine 40 mg and mirtazapine 30 mg for several weeks now. ED FOREIGN EXCHANGE DEALER and patient discuss goals of care. Patient explains they are agreeable to receive inpatient behavioral health hospitalization at this time. At this time, it is the opinion of this FOREIGN EXCHANGE DEALER that patient would benefit from inpatient psychiatric hospitalization for SI, medication and crisis stabilization. FOREIGN EXCHANGE DEALER informs ED provider, Dr. Blackwell, who indicates agreement. FOREIGN EXCHANGE DEALER informs [facility] Snyder. Plan RA Plan Once patient is medically clear, ED staff will attempt to find inpatient placement for patient. ONDINA Sosa
[2024-06-24 17:04] LABS: Thyroid Stimulating Hormone 1.07 uIU/mL (0.47-4.68)
[2024-06-24] MEDS: LACTATED RINGERS 1,000 ML 1000 ML IV (17:20)
--- NOTE | 2024-06-24 17:30 | ED.PSYCH ---
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 She says this is unfortunately typical for disorder, she has periods of time with no appetite and fear of eating, and long periods of time not eating. No history of diabetes. Denies alcohol or other drug use. Denies ingestions of salicylate, toxic alcohols, prescription medications. Taking her chronic medications as directed. Related Data Home Medications Medication Instructions Recorded Confirmed levonorgestrel 21 mcg/24 hr (up to intrauterine 09/08/23 05/16/24 8 years) 52 mg intrauterine device (Mirena) Previous Rx's Medication Instructions Recorded duloxetine 20 mg capsule,delayed 20 mg PO DAILY #90 caps 03/25/24 release mirtazapine 15 mg tablet 30 mg (2 x 15 mg) PO DAILY #60 tabs 04/15/24 duloxetine 30 mg capsule,delayed 30 mg PO DAILY #7 caps 04/18/24 release Allergies Allergy/AdvReac Type Severity Reaction Status Date / Time No Known Drug Allergies Allergy Verified 05/16/24 13:38 Patient History Medical History Panic disorder Trauma Anxiety and depression (~2014) Surgical History S/P H/O wisdom tooth extraction (~2014) Family History Father No problems noted. Mother Depression Grandfather Congestive heart failure History of open heart surgery Grandmother Congestive heart failure History of open heart surgery Grandfather No problems noted. 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 No obvious alcohol on breath. HEAD: Atraumatic. Normocephalic. EYES: Pupils equal round and reactive. Extraocular motions intact. No scleral icterus. No injection or drainage. ENT: Nose without bleeding, purulent drainage. Throat without erythema, tonsillar hypertrophy or exudate. Airway patent. NECK: Trachea midline. Non tender CARDIOVASCULAR: Fast rate regular rhythm, without murmurs, gallops, or rubs. RESPIRATORY: Clear to auscultation. Breath sounds equal bilaterally. No wheezes, rales, or rhonchi. GASTROINTESTINAL: Abdomen soft, non-tender, nondistended. EXTREMITIES: No edema or joint tenderness. BACK: Nontender without deformity or crepitance. No flank tenderness. NEURO: AOx3. Motor functions grossly nonfocal. SKIN: No rash or erythema of visible areas Initial Vital Signs Initial Vital Signs: Vital Signs Temperature 98.9 F 06/24/24 14:52 Pulse Rate 137 H 06/24/24 14:52 Respiratory Rate 18 06/24/24 14:52 Blood Pressure 141/80 H 06/24/24 14:52 Pulse Oximetry 98 06/24/24 14:52 Oxygen Delivery Method Room Air 06/24/24 14:52 Course Orders Ordered: ED Orders 06/24/24 15:01 Consult to CONSTRUCTION DRIVER - Advertising Display Rotator Stat 06/24/24 15:19 Ictotest Urine Stat Urinalysis and Microscopic Stat Urine Drug Screen, Rapid Stat 06/24/24 15:50 Acetaminophen Stat Complete Blood Count AUTO DIFF Stat Comprehensive Metabolic Panel Stat Ethanol (ETOH) Stat Free T4, Direct Thyroxine Stat Ketones (Beta-Hydroxybutyrate) Stat Salicylate Stat Thyroid Stimulating Hormone Stat 06/24/24 17:27 Venous Blood Gas DAILY 06/24/24 17:29 XR chest 1V Stat Dextrose (Dextrose 5% Water) 1,000 mls @ 200 mls/hr IV CONT NAVA Last Admin: 06/24/24 18:57 Dose: 200 mls/hr Documented By: SON Dextrose/Lactated Ringer's (Dextrose 5%-Lactated Ringers) 1,000 mls @ 100 mls/hr IV CONT NAVA Lorazepam (Lorazepam 1 Mg Tablet) 1 mg PO Q6HR PRN PRN Reason: Nausea Naloxone HCl (Naloxone 0.4 Mg/Ml Vial) 0.2 mg IV Q2MIN PRN PRN Reason: Opiate Reversal Discontinued Medications Lactated Ringer's (Lactated Ringers) 1,000 mls @ 1,000 mls/hr IV BOLUS ONE Stop: 06/24/24 17:00 Last Infusion: 06/24/24 18:23 Dose: Infused Documented By: Admin: 06/24/24 17:20 Dose: 1,000 mls/hr Documented By: MARIA FERNANDA Vital Signs Vital signs: Vital Signs - 8 hr 06/24/24 14:52 Temperature 98.9 F Pulse Rate 137 H Respiratory Rate 18 Blood Pressure 141/80 H Pulse Oximetry 98 Oxygen Delivery Method Room Air MDM - Psych Lab Data Attestation: I reviewed the patient's lab results. Lab results narrative: White blood cell count 4100, hemoglobin 16.9, platelets 160,000. Sodium 137, potassium 4.3, serum chloride 103, serum CO2 9 markedly low. BUN 5 with creatinine 0.82. Glucose 68 noted. Serum ketones 7.9 elevated. Acetaminophen neg, Ethanol neg, Salicylates neg. UDS neg. Urine dip positive for ketones without glucosuria. 06/24/24 15:50 06/24/24 15:50 Labs: Lab Results 06/24/24 06/24/24 06/24/24 Range/Units 15:19 15:19 15:50 WBC 4.1 L (4.5-11.0) X10^3/uL RBC 5.75 H (4.0-5.2) X10^6/uL Hgb 16.9 H (12.0-16.0) g/dL Hct 50.4 H (36-46) % MCV 87.6 (80-100) fL MCH 29.4 (26-34) PG MCHC 33.6 (30-36) % RDW 14.3 (11.6-14.8) % Plt Count 160 (150-400) X10^3/uL Neut % (Auto) 85.7 H (50-75) % Lymph % (Auto) 5.1 L (25-40) % [place] % (Auto) 8.3 (3-14) % Eos % (Auto) 0.4 L (2-4) % Baso % (Auto) 0.5 (0-2) % Neut # (Auto) 3500 (6799-8882) /uL Lymph # (Auto) 200 L (8325-4163) /uL [place] # (Auto) 300 (0-900) /uL Eos # (Auto) 0 (0-450) /uL Baso # (Auto) 0 (0-100) /uL RBC Morphology Normal morphology Sodium 137 (137-145) mmol/L Potassium 4.3 (3.4-5.1) mmol/L Chloride 103 (98-107) mmol/L Carbon Dioxide 9 L* (22-32) mmol/L BUN 5 L (7-17) mg/dL Creatinine 0.82 (0.52-1.04) mg/dL Estimated GFR > 60 (>60) mL/min BUN/Creatinine Ratio 6.1 (6-22) Glucose 68 L (70-100) mg/dL Calcium 9.6 (8.4-10.2) mg/dL Total Bilirubin 1.6 H (0.2-1.3) mg/dL AST 31 (14-36) IU/L ALT 19 (<35) IU/L Alkaline Phosphatase 99 (38-126) U/L Total Protein 8.7 H (6.3-8.2) g/dL Albumin 5.2 H (3.5-5.0) g/dL Globulin 3.5 (1.7-4.1) g/dL Albumin/Globulin Ratio 1.5 (1.0-2.8) TSH 1.07 (0.47-4.68) uIU/mL Free T4 1.36 (0.78-2.19) ng/dL Urine Color Yellow Urine Appearance Sl cloudy Urine pH 6.0 Normal (4.5-8.0) Ur Specific [place] >=1.030 H (1.000-1.035) Urine Protein Trace H (Negative) Urine Glucose (UA) Negative (Negative) g/dL Urine Ketones 3+ H (NEGATIVE) Urine Occult Blood Negative (Negative) Urine Nitrate Negative (Negative) Urine Bilirubin 1+ H (NEGATIVE) Ur Bilirubin Confirm Positive H (Negative) Urine Urobilinogen 1.0 (0.2) E.U./dL Ur Leukocyte Esterase Negative (NEGATIVE) Urine RBC 0-1/hpf (0-5/HPF) Urine WBC 0-1/hpf (0-5/HPF) Ur Squamous Epith Cells 1-5 /hpf (0-5/HPF) Urine Bacteria Few (2-10) H (None) Ur Culture Indicated? Cult not indicated Vol Urine Centrifuged 10ml (spun) Salicylates < 1.0 (<20) mg/dL U Opiates 300ng/mL cut Negative (Negative) Ur Oxycodone Screen Negative (Negative) Urine Methadone Screen Negative (Negative) Acetaminophen < 10 (10-30) ug/mL Ur Barbiturates Screen Negative (Negative) U Tricyclic Antidepress Negative (Negative) Ur Phencyclidine Scrn Negative (Negative) Ur Amphetamines Screen Negative (Negative) U Methamphetamines Scrn Negative (Negative) Ur MDMA Scrn (Ecstasy) Negative (Negative) U Benzodiazepines Scrn Negative (Negative) Urine Cocaine Screen Negative (Negative) U Marijuana (THC) Screen Negative (Negative) Urine Specific [place] Normal (Normal) Ethyl Alcohol < 10 ( - 10) mg/dL Ketones 7.79 H (<0.27) mmol/L Ur Creatinine Normal (Normal) Point of Care Testing Test Results Negative Glucose POC 109 Urine Dip Bedside Urine Glucose Negative Bedside Urine Bilirubin - Negative Bedside Urine Ketone +++ 80 Urine Specific [place] 1.030 Bedside Urine Occult Blood - Negative Bedside Urine pH 6.0 Bedside Urine Protein + 30 Bedside Urine Urobilinogen +/- 1mg Bedside Urine Nitrite - Negative Bedside Urine Leukocytes - Negative Esterase Imaging Data Chest x-ray: Radiologist's Impression: [address] [address] XRay Report Signed Patient: Bonny Marquez MR#: [id number] : 1995 Acct:[id number] Age/Sex: 29 / F Date of Service: 06/24/24 Loc: 90B-1 Accession Number: [id number] Procedure: XR chest 1V Ordering Provider: Shine Blackwell MD PROCEDURE: XR CHEST 1V INDICATIONS: acidosis TECHNIQUE: One view of the chest was acquired. COMPARISON: [facility], CR, XR CHEST 2V, 02/19/2024, 12:03. FINDINGS: Surgical changes and devices: None. Lungs and pleura: Lungs are clear. No pleural effusions or pneumothorax. Mediastinum: Mediastinal contours appear normal. Heart size is normal. Bones and chest wall: No suspicious bony lesions. Overlying soft tissues appear unremarkable. IMPRESSION: No acute cardiopulmonary pathology. Dictated by: Messi Stinson M.D. on 06/24/2024 at 17:59 Approved by: Messi Stinson M.D. on 06/24/2024 at 17:59 MDM Narrative Medical decision making narrative: History of eating disorder, no solid oral intake for the last 8 days, generalized weakness, afebrile, denies active SI, prior hospitalizations for the same. Screening labs pending. Serum Co2 9 markedly low. Glucose 68. Add serum ketones. IVF bolus NS, then D5NS infusion glucose substrate. Serum ketones 7.9 also quite elevated. Salicylates, acetaminophen, ethanol negative. Will need metabolic stabilization/clearance before oncology social worker and/or psychiatric evaluation. Will contact hospitalist. Case discussed with hospitalist who accepts patient for admission. Critical Care Time Critical Care Time Critical Care Time: Yes Total Critical Care Time: 35 Attestation: The high probability of a clinically significant, sudden or life threatening deterioration of the [metabolic, psychiatric] system(s) required my full and direct attention, intervention and personal management. The aggregate critical care time was [35] minutes. This time is in addition to time spent performing reported procedures but includes the following: [x] Data Review and interpretation [x] Patient assessment and monitoring of vital signs [x] Documentation [x] Medication orders and management Discharge Plan Departure Patient Disposition: Admitted As Inpatient Clinical Impression: Atypical eating disorder, Metabolic acidosis, Ketoacidosis, Dehydration Admit Date/Time: 06/24/24 17:41 Admit Provider: Sotero Rudd
--- NOTE | 2024-06-24 17:51 | CM.DANOTE ---
Addendum entered by ALICE Dyson 06/24/24 19:42: Referral to [facility] for phone assessment completed via [employer]. ONDINA Sosa Original Note: DCP Assessment Note: Pt is a 29yo female, resident of [place], is admitted for acidosis secondary to an eating disorder, Avoidant/restrictive food intake disorder (ARFID). Pt lives in an apartment alone. Pt's Primary Care Provider is Dr. Deborah Valle and insurance is [employer]. Reviewed chart and discussed with multidisciplinary team pt's medical status and initial discharge needs. Pt was initially seen in the ED for suicidal ideation due to not taking her psych medications; she was not medically cleared for MH treatment. Patient has a recent hx in May 2024 of similar symptoms and it was found that pt had COVID and could not transfer to a MH unit. ED ELECTRON BEAM PHOTO MASK MAKER met with pt during ED triage, introduced self and role. Patient was found to be alert and oriented, cooperative with assessment. Please see ELECTRON BEAM PHOTO MASK MAKER assessment below, pt was voluntary for MH treatment. Note: Patient is open with Counts include 234 beds at the [facility], Hx with [facility] and [facility] for inpatient BH treatment. After medical clearance was not obtained, pt agreed with admission for acidosis and continued medical observation. ELECTRON BEAM PHOTO MASK MAKER re-entered room and discussed plans for after medical clearance. Pt is agreeable to a referral and assessment with [facility]. ELECTRON BEAM PHOTO MASK MAKER spoke with Admissions at [facility], it is reported that there are inpatient treatment programs in [place] and [place]. There are residential, IOP and PHP programs offered at their [place] location. It is requested that pt complete a phone assessment to be placed on their waitlist for their residential program if still interested after medical clearance. ELECTRON BEAM PHOTO MASK MAKER provided informational guides to patient and educated on referral/intake process. Plan: Anticipating admission to Acute Care floor, referral to [facility] initiated. Discharge plans to be reassessed when pt medically cleared, inpatient BH treatment vs. Counts include 234 beds at the [facility] follow up. CM team will follow closely for coordination of discharge plans. ONDINA Sosa Discharge Planning/Care Management CM Discharge Assessment Start: 06/24/24 17:43 Freq: Status: Active Protocol: Document 06/24/24 17:44 MW (Rec: 06/24/24 17:50 MW [id number]) Discharge Planning Assessment Assigned Bulkhead Carpenter ALICE Lee DPOA/Assigned Designee Name Adwoa Marquez, Mother Contact Information [phone] Advance Directives? No History Provided By Patient,Medical Record Has Patient been admitted in last 30 No days? Prior Living Arrangements Apartment/Condo Household Members none Type of transporation used prior to Drives own vehicle admit Independent with ADL's Yes Is patient alert and oriented? Yes Caregiver for Another Yes Comment MH Rehab after medical clearance if still appropriate Barriers to Discharge No Referrals Initiated Other Additional Comment [facility] - Referral for phone assessment with tuberculosis specialist for possible Residential Treatment at their [facility] Review Status In Process Please Provide Date Initial DC 06/24/24 Assessment Was Performed Next Review Type Continued Stay Review ELECTRON BEAM PHOTO MASK MAKER - Multifocal Button Generator Assessment Start: 06/24/24 16:08 Freq: Status: Active Protocol: Document 06/24/24 16:10 MW (Rec: 06/24/24 16:12 MW [id number]) ELECTRON BEAM PHOTO MASK MAKER/Multifocal Button Generator Assessment Start date 06/24/24 Visit Start Time 14:52 End date 06/24/24 Visit End Time 15:15 Total time Care Management spent on 23 minutes total patient visit-in minutes Presenting Problem Patient presents to the ED for suicidal ideation due to complications with her eating disorder, Avoidant/restrictive food intake disorder (ARFID). Patient states she has not eaten much in about 7-8 days, taking very minimal sips of water. Precipitating Event(s) Patient states she has been dealing with this eating disorder for about six years, she has had some presentations resulting in hospitalization this past year. Patient reports there has not been anything substantially stressful in her life that would cause her to do this other than kiya COVID and being off of her psychiatric medication (this happened in May). Patient Strengths Patient has good insight, is supported by her mom and 2 sisters. Patient has good protective factors of being employed, having a child, and coordinating with Intensive Outpatient Program as well as her Primary Care Provider (Dr. Deborah Valle). Current Behavioral Health Provider(s) Patient is currently enrolled Include Facility, Provider, Ph. # with Counts include 234 beds at the [facility]. Psych. Hx Mental Health and Chemical Hx of Avoidant/restrictive Dependency food intake disorder (ARFID), Depression and anxiety. Family Hx of Behavioral Abuse None reported. Psychiatric Hospitalizations (date(s)/ [facility] - after location) suicidal ideation and plan ( her boyfriend at the time owned a gun in which she had access to). Most recently in March 2024, [facility] for similar symptoms. She was admitted on voluntary status for approximately 5 days. Psychosocial information & Support Patient is a 29yo female, Systems resident of [place]. Patient lives alone but she has the support of her mother, 2 sisters who live nearby. Patient states she is a mother of a boy, she shares custody with father of child. 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 Legal Matters - Outstanding Issues None reported. Orientation (Person/Place/Time) Aox3 Stated Mood Fatigued, weak. Affect (Congruent with Mood?) Flat, congruent with mood Thought Content - Specify/Describe None reported, none identified Obsessions, Delusions, Hallucinations during assessment. Thought Processes (Jhnkpxr-Bhaqyrdo-Sduw Logical, goal directed. Xewcwvyz-Alwavxns-Zoinyvuldg- Rfzcvkiujzzhzj-Vepkoyt-Uuwxgiyregmu- Thought Blocking) Speech (Ajvorx-Znli-Ecgjupd-Rapid-Soft- Normal Loud-Pressured) Motor (Fpyepj-Fqtyvcqxw-Gvkl-Other) Normal Insight (Zbov-Bmdn-Esva/Limited) Good Judgement (Tivl-Vszk-Dkwc/Limited) Good Impulse Control (Adequate-Impaired) Impaired Memory (Eumluelgc-Fahcfi-Nlvjze, Intact Impaired-Intact) Concentration (Intact-Impaired) Intact Attention (Intact-Impaired) Intact Behavior (Appropriate-Inappropriate) Appropriate Additional Comment Patient is calm, cooperative and communicative during assessment. Suicidal Ideation (Plan) Yes: Low Risk Homicidal Ideation (Plan) No Comment [place]-SUICIDE SEVERITY RATING SCALE 1) Have you wished you were or wished you could go to sleep and not wake up? Y 2) Have you actually had any thoughts of killing yourself? N 6) Have you ever done anything , started to do anything, or prepared to do anything to end your life? Y (Intentions of using father of baby's gun in his truck, did not attempt) Intervention Reviewed chart and discussed with ED Provider pt's medical status and discharge needs. It is identified that patient was here in March 2024 for similar symptoms, was transferred to [facility] for inpatient treatment. Patient also presented in May 2024 but could not transfer for inpatient due to kiya COVID. ED ELECTRON BEAM PHOTO MASK MAKER meets with patient. Patient endorses not eating for about 7-8 days and feeling suicidal because of the hopelessness she feels with her mental health state and complications from Avoidant/ restrictive food intake disorder (ARFID). Patient denies any plans to kill self but she does not feel safe at home alone. Due to her ED, she has also not been able to take her medications duloxetine 40 mg and mirtazapine 30 mg for several weeks now. ED ELECTRON BEAM PHOTO MASK MAKER and patient discuss goals of care. Patient explains they are agreeable to receive inpatient behavioral health hospitalization at this time. At this time, it is the opinion of this ELECTRON BEAM PHOTO MASK MAKER that patient would benefit from inpatient psychiatric hospitalization for SI, medication and crisis stabilization. ELECTRON BEAM PHOTO MASK MAKER informs ED provider, Dr. Blackwell, who indicates agreement. ELECTRON BEAM PHOTO MASK MAKER informs HA Snyder . RA Plan Once patient is medically clear, ED staff will attempt to find inpatient placement for patient.
[2024-06-24 18:07] LABS: Ketones (Beta-Hydroxybutyrate) 7.79 mmol/L (<0.27)
[2024-06-24] MEDS: DEXTROSE 5% WATER 1,000 ML 200 ML IV (18:57)
--- NOTE | 2024-06-24 19:28 | P.HP_ITS ---
History of Present Illness History of Present Illness Date Patient Seen: 06/24/24 Time Patient Seen: 19:29 Chief complaint: Eating disorder, hasn't eaten in 8 days, suicidal Narrative: Chief complaint: Severe phobia of eating or drinking with starvation ketosis and dehydration History of present illness 29-year-old female has many years of severe phobia of eating and drinking particularly if somebody else of vomits and severe phobia of vomiting she has seen many therapists prescribed multiple things in the past that have tried the only thing that helped with her phobia of eating and drinking has been lorazepam in the past Patient's friend was ill with nausea and vomiting which caused her to be severely phobic and has not eaten or had anything to drink in the last 8 days. Patient sees a therapist In the emergency department patient was evaluated and found to have an anion gap acidosis notably ketones 7.8 bicarb of 9. Patient referred to the hospitalist service for admission for IV fluids and correction of ketosis acidosis with dextrose IV fluids and setting a diet along with lorazepam as needed for phobia of eating and drinking as the patient's survival may be threatened her phobia. Review of systems: Specifically no fever or chills or systemic symptoms No chest pains or shortness a breath or cough No abdominal pain diarrhea constipation No urinary symptoms No paresthesia or paresis Physical exam: Remarkably calm focused and cogent young female new line HEENT unremarkable new line neck no JVD Heart and lungs clear new line abdomen nontender new line extremities no edema Assessment and plan: Very remarkable ketosis with anion gap perhaps starvation ketosis but I have never seen this to this severity prior. She does not strike me as somebody who is ingested and is not encephalopathic at all -IV D5 LR are normal saline at this is not available Advance diet as tolerated new line lorazepam for phobia of eating 55 minutes of time was required evaluation of this patient 50% of the time was spent in the presence of the patient COUNTS INCLUDE 234 BEDS AT THE [facility] Medical History Panic disorder Trauma Anxiety and depression (~2014) Surgical History S/P H/O wisdom tooth extraction (~2014) Family History Father No problems noted. Mother Depression Grandfather Congestive heart failure History of open heart surgery Grandmother Congestive heart failure History of open heart surgery Grandfather No problems noted. Grandmother Emphysema lung Smoker Sister Bipolar 2 disorder Family/Other Depression Social History marital status: unmarried,living together household members: none pets and animals: Yes (kitten in the home : aware) education level: vocational occupational status: unemployed current occupational exposures/hazards: No Previous occupational history: [employer] special dulce maria needs: No Smoking Status: Current every day smoker second hand exposure: No alcohol intake: former substance use type: does not use Meds Home Medications and Allergies Home Medications Medication Instructions Recorded Confirmed Type levonorgestrel 21 mcg/24 hr (up to intrauterine 09/08/23 05/16/24 History 8 years) 52 mg intrauterine device (Mirena) albuterol sulfate 90 mcg/actuation 2 puff inhalation Q4-6H PRN 02/12/24 05/16/24 Rx aerosol inhaler shortness of breath or wheezing #8.5 grams duloxetine 20 mg capsule,delayed 20 mg PO DAILY #90 caps 03/25/24 05/16/24 Rx release mirtazapine 15 mg tablet 30 mg (2 x 15 mg) PO DAILY #60 tabs 04/15/24 05/16/24 Rx duloxetine 30 mg capsule,delayed 30 mg PO DAILY #7 caps 04/18/24 05/16/24 Rx release Allergies Allergy/AdvReac Type Severity Reaction Status Date / Time No Known Drug Allergies Allergy Verified 05/16/24 13:38 Exam Vital Signs (past 8 hours): - 06/24/24 14:52 Temperature 98.9 F Pulse Rate 137 H Respiratory Rate 18 Blood Pressure 141/80 H Pulse Oximetry 98 Oxygen Delivery Method Room Air Oxygen Delivery Method Room Air Objective Labs 06/24/24 15:50 06/24/24 15:50 Labs: Laboratory Results - last 24 hr 06/24/24 06/24/24 06/24/24 15:19 15:19 15:50 WBC 4.1 L RBC 5.75 H Hgb 16.9 H Hct 50.4 H MCV 87.6 MCH 29.4 MCHC 33.6 RDW 14.3 Plt Count 160 Neut % (Auto) 85.7 H Lymph % (Auto) 5.1 L [place] % (Auto) 8.3 Eos % (Auto) 0.4 L Baso % (Auto) 0.5 Neut # (Auto) 3500 Lymph # (Auto) 200 L [place] # (Auto) 300 Eos # (Auto) 0 Baso # (Auto) 0 RBC Morphology Normal morphology Sodium 137 Potassium 4.3 Chloride 103 Carbon Dioxide 9 L* BUN 5 L Creatinine 0.82 Estimated GFR > 60 BUN/Creatinine Ratio 6.1 Glucose 68 L Calcium 9.6 Total Bilirubin 1.6 H AST 31 ALT 19 Alkaline Phosphatase 99 Total Protein 8.7 H Albumin 5.2 H Globulin 3.5 Albumin/Globulin Ratio 1.5 TSH 1.07 Free T4 1.36 Urine Color Yellow Urine Appearance Sl cloudy Urine pH 6.0 Normal Ur Specific [place] >=1.030 H Urine Protein Trace H Urine Glucose (UA) Negative Urine Ketones 3+ H Urine Occult Blood Negative Urine Nitrate Negative Urine Bilirubin 1+ H Ur Bilirubin Confirm Positive H Urine Urobilinogen 1.0 Ur Leukocyte Esterase Negative Urine RBC 0-1/hpf Urine WBC 0-1/hpf Ur Squamous Epith Cells 1-5 /hpf Urine Bacteria Few (2-10) H Ur Culture Indicated? Cult not indicated Vol Urine Centrifuged 10ml (spun) Salicylates < 1.0 U Opiates 300ng/mL cut Negative Ur Oxycodone Screen Negative Urine Methadone Screen Negative Acetaminophen < 10 Ur Barbiturates Screen Negative U Tricyclic Antidepress Negative Ur Phencyclidine Scrn Negative Ur Amphetamines Screen Negative U Methamphetamines Scrn Negative Ur MDMA Scrn (Ecstasy) Negative U Benzodiazepines Scrn Negative Urine Cocaine Screen Negative U Marijuana (THC) Screen Negative Urine Specific [place] Normal Ethyl Alcohol < 10 Ketones 7.79 H Ur Creatinine Normal Assessment & Plan Time-Based Coding :: [TOTAL MINUTES] spent with patient and on the chart (including review of chart, obtaining history, exam, reviewing outside data, placing orders, documenting exam and treatment plan, and counseling patient) on [DATE].
[2024-06-24 19:32] VITALS: BP 101/60; PULSE 115; RESP 18; TEMP 37.2; O2SAT 99
[2024-06-24 19:50] VITALS: BP 103/68; PULSE 104; RESP 18; TEMP 37.3; O2SAT 100
[2024-06-24 20:05] VITALS: BMI 26.7
[2024-06-24 20:44] VITALS: BMI 26.7
[2024-06-24] MEDS: DEXTROSE 5%-LACTATED RINGERS 1,000 ML 100 ML IV (21:21)
[2024-06-25] VITALS: BP 94/57; PULSE 107; RESP 20; TEMP 37.7; O2SAT 97
[2024-06-25 04:59] LABS: Add Manual Diff / Slide Review NO; Basophils Absolute Auto 0 /uL (0-100); Basophils Percent Auto 0.6 % (0-2); Eosinophils Absolute Auto 0 /uL (0-450); Hematocrit 42.2 % (36-46); Hemoglobin 14.3 g/dL (12.0-16.0); Lymphocytes Absolute Auto 500 /uL (1100-4500); Lymphocytes Percent Auto 18.4 % (25-40); Mean Corpuscular HGB Conc 33.8 % (30-36); Mean Corpuscular Hemoglobin 29.2 PG (26-34); Mean Corpuscular Volume 86.2 fL (80-100); Monocytes Absolute Auto 500 /uL (0-900); Monocytes Percent Auto 18.4 % (3-14); Neutrophils Absolute Auto 1700 /uL (1500-7000); Neutrophils Percent Auto 62.6 % (50-75); Platelet Count 140 X10^3/uL (150-400); Red Cell Distribution Width 14.1 % (11.6-14.8); White Blood Cell Count 2.7 X10^3/uL (4.5-11.0)
[2024-06-25 05:35] LABS: Ketones (Beta-Hydroxybutyrate) 2.66 mmol/L (<0.27)
[2024-06-25 07:56] LABS: Alanine Aminotransferase 16 IU/L (<35); Albumin 3.8 g/dL (3.5-5.0); Albumin Globulin Ratio 1.4 (1.0-2.8); Alkaline Phosphatase 76 U/L (38-126); Aspartate Aminotransferase 25 IU/L (14-36); BUN Creatinine Ratio 4.3 (6-22); Blood Urea Nitrogen 3 mg/dL (7-17); Calcium 8.7 mg/dL (8.4-10.2); Carbon Dioxide 15 mmol/L (22-32); Chloride 103 mmol/L (98-107); Estimated Glomerular Filt Rate > 60 mL/min (>60); Globulin 2.7 g/dL (1.7-4.1); Glucose 126 mg/dL (70-100); HEMOLYSIS < 15 (0-50); Potassium 3.4 mmol/L (3.4-5.1); Sodium 132 mmol/L (137-145); Total Protein 6.5 g/dL (6.3-8.2)
--- NOTE | 2024-06-25 10:45 | DIET.CONS ---
Dietary Consultation Note Admission Date: 06/24/2024 17:41 Assessment: 29 y F admitted with starvation ketosis. Dietitian screened for low MNA. Pt discussed in healthcare team rounds and EMR reviewed. PMH of eating disorder/ARFID, severe phobia of eating and drinking. Hx of behavioral health programs in past. ARCHEOLOGY FACULTY MEMBER setting up potential d/c to [facility]. Pt was unable to eat breakfast this morning. Is getting D5W. Per hospitalist- starting medications and hopeful this will allow her to eat again but continue D5W at current rate Ht: 160.02 cm Wt: 68.5 kg BMI: 26.7 UBW: 77.621 kg on 05/16/24 (-12% weight loss within 2 months (-20 lb), severe), 86.183 kg on 01/29/24 (-20.5% weight loss within 6 months, severe) Last BM: () MNA: 7 Parish Score: 20 Diet: 06/24/24 Dinner General (Regular) Diet Diet Modifications: Advance as tolerated patient has not eaten 8 days May Advance Diet as Tolerated: Yes Safety Tray needed?: No Labs: RBC 4.90 X10^6/uL (4.0-5.2) 06/25/24 04:46 Hgb 14.3 g/dL (12.0-16.0) 06/25/24 04:46 Hct 42.2 % (36-46) 06/25/24 04:46 Creatinine 0.70 mg/dL (0.52-1.04) 06/25/24 04:46 Nutrition Diagnosis: Severe acute Protein Calorie Malnutrition r/t psychological causes as evidenced by history of eating disorder/ARFID, no food or drink intake for 8 days (severe), and 12% weight loss (-20lb) within 2 months (severe) Interventions: -High risk for refeeding syndrome, monitor phos, Mg, K+ BID for next 3 days. Slow or hold rate of dextrose until electrolytes are normalized, supplementing per pharmacy protocol -[facility] supplement 100 mg thiamine for 5 days -Diet as tolerated, will monitor patients ability to eat based on initiation of medication. EER: 1700 kcals (25 kcals/kg per BMI vs MSJx1.25) 80-95 g protein (1.25-1.5 g/kg per PCM) Monitoring/Evaluations: labs, PO intakes Electronically Signed by: Snow White 06/25/24 10:45 Clinical Dietitian [address] [id number]
[2024-06-25] MEDS: LORazepam 1 MG TABLET PO (11:21)
[2024-06-25] MEDS: POTASSIUM CHLORIDE 20 MEQ TAB 40 MEQ PO ×2 (11:21→19:49)
[2024-06-25] MEDS: THIAMINE 100 MG in SODIUM CHLORIDE 0.9% 100 ML 404 MG IV (11:23)
[2024-06-25] MEDS: DEXTROSE 5%-LACTATED RINGERS 1,000 ML 100 ML IV ×2 (11:25→22:24)
[2024-06-25 12:00] VITALS: BP 96/62; PULSE 102; RESP 12; TEMP 37.3; O2SAT 97
[2024-06-25 14:31] LABS: Magnesium 1.7 mg/dL (1.6-2.3); Phosphorous 3.5 mg/dL (2.5-4.5)
[2024-06-25] MEDS: MAGNESIUM CHLORIDE 64 MG TABLET 128 MG PO (17:12)
[2024-06-25 17:34] LABS: Calcium 8.7 mg/dL (8.4-10.2); Carbon Dioxide 23 mmol/L (22-32); Chloride 101 mmol/L (98-107); Estimated Glomerular Filt Rate > 60 mL/min (>60); Glucose 108 mg/dL (70-100); HEMOLYSIS < 15 (0-50); Phosphorous 3.1 mg/dL (2.5-4.5); Potassium 3.2 mmol/L (3.4-5.1); Sodium 135 mmol/L (137-145)
[2024-06-25 17:35] LABS: BUN Creatinine Ratio 2.8 (6-22); Blood Urea Nitrogen < 2 mg/dL (7-17); Magnesium 1.6 mg/dL (1.6-2.3)
[2024-06-25 18:00] VITALS: BP 107/71; PULSE 101; RESP 15; TEMP 37.1; O2SAT 99
--- NOTE | 2024-06-25 18:36 | PM.PN.1 ---
Subjective Subjective Interval history: Date Patient Seen: 06/25/24 Time Patient Seen: 19:29 Chief complaint: Severe phobia of eating or drinking with starvation ketosis and dehydration History of present illness 29-year-old female has many years of severe phobia of eating and drinking particularly if somebody else of vomits and severe phobia of vomiting she has seen many therapists prescribed multiple things in the past that have tried the only thing that helped with her phobia of eating and drinking has been lorazepam in the past Patient's friend was ill with nausea and vomiting which caused her to be severely phobic and has not eaten or had anything to drink in the last 8 days. Patient sees a therapist In the emergency department patient was evaluated and found to have an anion gap acidosis notably ketones 7.8 bicarb of 9. Patient referred to the hospitalist service for admission for IV fluids and correction of ketosis acidosis with dextrose IV fluids and setting a diet along with lorazepam as needed for phobia of eating and drinking as the patient's survival may be threatened her phobia. Hospital course: 06/25: Had a little bit of a smoothie some applesauce and a little bit of mashed potatoes with some water today feeling less folic about eating Review of systems: Specifically no fever or chills or systemic symptoms No chest pains or shortness a breath or cough No abdominal pain diarrhea constipation No urinary symptoms No paresthesia or paresis Physical exam: Remarkably calm focused and cogent young female new line HEENT unremarkable new line neck no JVD Heart and lungs clear new line abdomen nontender new line extremities no edema Assessment and plan: Very remarkable ketosis with anion gap perhaps starvation ketosis but I have never seen this to this severity prior. She does not strike me as somebody who is ingested and is not encephalopathic at all -IV D5 LR are normal saline at this is not available Advance diet as tolerated new line lorazepam for phobia of eating Advanced pretty well today 35 minutes of time was required evaluation of this patient 50% of the time was spent in the presence of the patient Exam Vital Signs (past 8 hours): - 06/25/24 12:00 Temperature 99.1 F Pulse Rate 102 H Respiratory Rate 12 Blood Pressure 96/62 Pulse Oximetry 97 Oxygen Delivery Method Room Air Oxygen Flow Rate 0 Objective Labs 06/25/24 04:46 06/25/24 17:04 Labs: Laboratory Results - last 24 hr 06/25/24 06/25/24 04:46 17:04 WBC 2.7 L RBC 4.90 Hgb 14.3 Hct 42.2 MCV 86.2 MCH 29.2 MCHC 33.8 RDW 14.1 Plt Count 140 L Neut % (Auto) 62.6 D Lymph % (Auto) 18.4 L [place] % (Auto) 18.4 H Eos % (Auto) 0.0 L Baso % (Auto) 0.6 Neut # (Auto) 1700 Lymph # (Auto) 500 L [place] # (Auto) 500 Eos # (Auto) 0 Baso # (Auto) 0 Sodium 132 L 135 L Potassium 3.4 3.2 L Chloride 103 101 Carbon Dioxide 15 L 23 BUN 3 L < 2 L Creatinine 0.70 0.72 Estimated GFR > 60 > 60 BUN/Creatinine Ratio 4.3 L 2.8 L Glucose 126 H 108 H Calcium 8.7 8.7 Phosphorus 3.5 3.1 Magnesium 1.7 1.6 Total Bilirubin 1.0 AST 25 ALT 16 Alkaline Phosphatase 76 Total Protein 6.5 Albumin 3.8 Globulin 2.7 Albumin/Globulin Ratio 1.4 Ketones 2.66 H PFSH Medical History Panic disorder Trauma Anxiety and depression (~2014) Surgical History S/P H/O wisdom tooth extraction (~2014) Family History Father No problems noted. Mother Depression Grandfather Congestive heart failure History of open heart surgery Grandmother Congestive heart failure History of open heart surgery Grandfather No problems noted. 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 Quality VTE Deep Vein Thrombosis/Pulmonary Embolism Present on Admission: No
[2024-06-25] MEDS: SODIUM CHLORIDE 0.9% FLUSH 10 ML IV (19:50)
[2024-06-26 00:02] VITALS: BP 110/74; PULSE 97; RESP 14; TEMP 37.1; O2SAT 98
[2024-06-26] MEDS: POTASSIUM CHLORIDE 20 MEQ TAB 40 MEQ PO ×3 (00:35→13:13)
[2024-06-26 05:20] VITALS: BP 104/66; PULSE 81; RESP 14; TEMP 36.8; O2SAT 99
[2024-06-26 05:59] LABS: Phosphorous 3.4 mg/dL (2.5-4.5)
[2024-06-26 06:00] LABS: Magnesium 1.6 mg/dL (1.6-2.3)
[2024-06-26 06:02] LABS: Alanine Aminotransferase 22 IU/L (<35); Albumin 3.5 g/dL (3.5-5.0); Albumin Globulin Ratio 1.5 (1.0-2.8); Alkaline Phosphatase 69 U/L (38-126); Aspartate Aminotransferase 35 IU/L (14-36); Bilirubin Total 0.7 mg/dL (0.2-1.3); Calcium 8.4 mg/dL (8.4-10.2); Carbon Dioxide 23 mmol/L (22-32); Chloride 102 mmol/L (98-107); Estimated Glomerular Filt Rate > 60 mL/min (>60); Globulin 2.4 g/dL (1.7-4.1); Glucose 113 mg/dL (70-100); HEMOLYSIS 16 (0-50); Potassium 2.8 mmol/L (3.4-5.1); Sodium 136 mmol/L (137-145); Total Protein 5.9 g/dL (6.3-8.2)
[2024-06-26 06:03] LABS: BUN Creatinine Ratio 3.1 (6-22); Blood Urea Nitrogen < 2 mg/dL (7-17)
[2024-06-26 08:00] VITALS: BP 101/67; PULSE 95; RESP 16; TEMP 36.7; O2SAT 99
[2024-06-26] MEDS: LORazepam 1 MG TABLET PO ×2 (08:03→17:03)
[2024-06-26] MEDS: DEXTROSE 5%-LACTATED RINGERS 1,000 ML 100 ML IV ×2 (08:45→18:48)
[2024-06-26] MEDS: THIAMINE 100 MG TABLET PO (09:04)
[2024-06-26] MEDS: MAGNESIUM OXIDE 400 MG TABLET PO ×2 (09:04→21:44)
[2024-06-26] MEDS: DULOXETINE 20 MG CAPSULE PO (13:13)
[2024-06-26 14:00] VITALS: BP 109/78; PULSE 100; RESP 18; TEMP 37.2; O2SAT 97
--- NOTE | 2024-06-26 14:32 | CM.DPC ---
DCP Cont. Reviewed EMR and team rounds for status updates. Met with pt to discuss her preference for inpt tx post-d/c. Caled [facility] and arranged for a phone assessment interview between her and their program intake counselor for 06/27 at 7:00am. Monitoring for acceptance.
--- NOTE | 2024-06-26 17:14 | PM.PN.1 ---
Subjective Subjective Date Patient Seen: 06/26/24 Time Patient Seen: 17:14 Interval history: Chief complaint: Severe phobia of eating or drinking with starvation ketosis and dehydration History of present illness 29-year-old female has many years of severe phobia of eating and drinking particularly if somebody else of vomits and severe phobia of vomiting she has seen many therapists prescribed multiple things in the past that have tried the only thing that helped with her phobia of eating and drinking has been lorazepam in the past Patient's friend was ill with nausea and vomiting which caused her to be severely phobic and has not eaten or had anything to drink in the last 8 days. Patient sees a therapist In the emergency department patient was evaluated and found to have an anion gap acidosis notably ketones 7.8 bicarb of 9. Patient referred to the hospitalist service for admission for IV fluids and correction of ketosis acidosis with dextrose IV fluids and setting a diet along with lorazepam as needed for phobia of eating and drinking as the patient's survival may be threatened her phobia. Hospital course: 06/25: Had a little bit of a smoothie some applesauce and a little bit of mashed potatoes with some water today feeling less folic about eating 06/26: Has some mesh potatoes and some applesauce spent no significant in nutrition or hydration today still feeling more anxiety Review of systems: Specifically no fever or chills or systemic symptoms No chest pains or shortness a breath or cough No abdominal pain diarrhea constipation No urinary symptoms No paresthesia or paresis Physical exam: Remarkably calm focused and cogent young female new line HEENT unremarkable new line neck no JVD Heart and lungs clear new line abdomen nontender new line extremities no edema Assessment and plan: Very remarkable ketosis with anion gap perhaps starvation ketosis but I have never seen this to this severity prior. She does not strike me as somebody who is ingested and is not encephalopathic at all -IV D5 LR are normal saline at this is not available Advance diet as tolerated new line lorazepam for phobia of eating Consider other approaches 35 minutes of time was required evaluation of this patient 50% of the time was spent in the presence of the patient Exam Vital Signs (past 8 hours): - 06/26/24 14:00 Temperature 99 F Pulse Rate 100 H Respiratory Rate 18 Blood Pressure 109/78 Pulse Oximetry 97 Oxygen Flow Rate 0 Oxygen Delivery Method Room Air Oxygen Flow Rate 0 Objective Labs 06/25/24 04:46 06/26/24 05:04 Labs: Laboratory Results - last 24 hr 06/25/24 06/26/24 17:04 05:04 Sodium 135 L 136 L Potassium 3.2 L 2.8 L Chloride 101 102 Carbon Dioxide 23 23 BUN < 2 L < 2 L Creatinine 0.72 0.65 Estimated GFR > 60 > 60 BUN/Creatinine Ratio 2.8 L 3.1 L Glucose 108 H 113 H Calcium 8.7 8.4 Phosphorus 3.1 3.4 Magnesium 1.6 1.6 Total Bilirubin 0.7 AST 35 ALT 22 Alkaline Phosphatase 69 Total Protein 5.9 L Albumin 3.5 Globulin 2.4 Albumin/Globulin Ratio 1.5 PFSH Medical History Panic disorder Trauma Anxiety and depression (~2014) Surgical History S/P H/O wisdom tooth extraction (~2014) Family History Father No problems noted. Mother Depression Grandfather Congestive heart failure History of open heart surgery Grandmother Congestive heart failure History of open heart surgery Grandfather No problems noted. 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 Quality VTE Deep Vein Thrombosis/Pulmonary Embolism Present on Admission: No
[2024-06-26 17:22] LABS: Magnesium 1.6 mg/dL (1.6-2.3)
--- NOTE | 2024-06-26 17:31 | DIET.PN1 ---
Dietary Progress Note Assessment: Per RN, pt did about 25-35% lunch. Met with pt at bedside. Reports tolerating Ensure clears. Added one to pt dinner tray. Reports tolerating foods provided. Encouraged continued PO intakes as tolerated. Ht: 160.02 cm Wt: 68.5 kg BMI: 26.7 UBW: Last BM: () MNA: 7 Parish Score: 19 Diet: 06/24/24 Dinner General (Regular) Diet Diet Modifications: Advance as tolerated patient has not eaten 8 days May Advance Diet as Tolerated: Yes Safety Tray needed?: No Nutrition Percent Meal Consumed 10 06/26/24 09:00 Percent Meal Consumed 50% 06/25/24 18:00 Labs: RBC 4.90 X10^6/uL (4.0-5.2) 06/25/24 04:46 Hgb 14.3 g/dL (12.0-16.0) 06/25/24 04:46 Hct 42.2 % (36-46) 06/25/24 04:46 Creatinine 0.65 mg/dL (0.52-1.04) 06/26/24 05:04 Electronically Signed by: Snow White 06/26/24 17:31 Clinical Dietitian [address] [address]
[2024-06-26] MEDS: droNABinol 2.5 MG CAPSULE PO ×2 (18:59→21:43)
[2024-06-26 20:00] VITALS: BP 115/79; PULSE 105; RESP 20; TEMP 37; O2SAT 98
[2024-06-26 20:44] LABS: BUN Creatinine Ratio 2.9 (6-22); Blood Urea Nitrogen < 2 mg/dL (7-17); Calcium 8.8 mg/dL (8.4-10.2); Carbon Dioxide 30 mmol/L (22-32); Chloride 101 mmol/L (98-107); Estimated Glomerular Filt Rate > 60 mL/min (>60); Glucose 105 mg/dL (70-100); HEMOLYSIS < 15 (0-50); Sodium 137 mmol/L (137-145)
[2024-06-26] MEDS: MIRTAZAPINE 15 MG TABLET PO (21:43)
[2024-06-27] MEDS: DEXTROSE 5%-LACTATED RINGERS 1,000 ML 100 ML IV ×2 (04:34→15:17)
[2024-06-27 05:34] LABS: Alanine Aminotransferase 42 IU/L (<35); Albumin 3.5 g/dL (3.5-5.0); Albumin Globulin Ratio 1.5 (1.0-2.8); Alkaline Phosphatase 68 U/L (38-126); Aspartate Aminotransferase 60 IU/L (14-36); Bilirubin Total 0.6 mg/dL (0.2-1.3); Calcium 8.5 mg/dL (8.4-10.2); Carbon Dioxide 31 mmol/L (22-32); Chloride 100 mmol/L (98-107); Estimated Glomerular Filt Rate > 60 mL/min (>60); Globulin 2.3 g/dL (1.7-4.1); Glucose 119 mg/dL (70-100); HEMOLYSIS < 15 (0-50); Phosphorous 3.8 mg/dL (2.5-4.5); Sodium 137 mmol/L (137-145); Total Protein 5.8 g/dL (6.3-8.2)
[2024-06-27 05:44] LABS: Magnesium 1.6 mg/dL (1.6-2.3)
[2024-06-27 05:52] LABS: BUN Creatinine Ratio 2.9 (6-22); Blood Urea Nitrogen < 2 mg/dL (7-17)
[2024-06-27 07:00] VITALS: BP 95/68; PULSE 85; RESP 16; TEMP 36.3; O2SAT 99
[2024-06-27] MEDS: droNABinol 2.5 MG CAPSULE PO ×3 (08:06→20:30)
[2024-06-27] MEDS: THIAMINE 100 MG TABLET PO (08:06)
[2024-06-27] MEDS: DULOXETINE 20 MG CAPSULE PO (08:06)
--- NOTE | 2024-06-27 08:36 | P.PN_ITS ---
Subjective Subjective Date Patient Seen: 06/27/24 Interval history: [facility] complaint: Severe phobia of eating or drinking with starvation ketosis and dehydration History of present illness 29-year-old female has many years of severe phobia of eating and drinking particularly if somebody else of vomits and severe phobia of vomiting she has seen many therapists prescribed multiple things in the past that have tried the only thing that helped with her phobia of eating and drinking has been lorazepam in the past Patient's friend was ill with nausea and vomiting which caused her to be severely phobic and has not eaten or had anything to drink in the last 8 days. Patient sees a therapist In the emergency department patient was evaluated and found to have an anion gap acidosis notably ketones 7.8 bicarb of 9. Patient referred to the hospitalist service for admission for IV fluids and correction of ketosis acidosis with dextrose IV fluids and setting a diet along with lorazepam as needed for phobia of eating and drinking as the patient's survival may be threatened her phobia. Hospital course: 06/25: Had a little bit of a smoothie some applesauce and a little bit of mashed potatoes with some water today feeling less folic about eating 06/26: Has some mesh potatoes and some applesauce spent no significant in nutrition or hydration today still feeling more anxiety 06/27: Potassium 3.0 this morning patient has not had any diarrhea or vomiting will add supplemental potassium as well as make available orange juice tinnitus this is probably the reversal of ketosis and potassium shift Review of systems: Specifically no fever or chills or systemic symptoms No chest pains or shortness a breath or cough No abdominal pain diarrhea constipation No urinary symptoms No paresthesia or paresis Physical exam: Remarkably calm focused and cogent young female new line HEENT unremarkable new line neck no JVD Heart and lungs clear new line abdomen nontender new line extremities no edema Assessment and plan: Very remarkable ketosis with anion gap perhaps starvation ketosis but I have never seen this to this severity prior. She does not strike me as somebody who is ingested and is not encephalopathic at all -IV D5 LR Advance diet as tolerated new line lorazepam for phobia of eating Consider other approaches (Marinol) 35 minutes of time was required evaluation of this patient 50% of the time was spent in the presence of the patient Exam Vital Signs (past 8 hours): Oxygen Delivery Method Room Air Oxygen Flow Rate 0 Objective Labs 06/25/24 04:46 06/27/24 04:42 Labs: Laboratory Results - last 24 hr 06/26/24 06/26/24 06/27/24 17:02 20:20 04:42 Sodium 137 137 Potassium 4.0 D 3.0 L Chloride 101 100 Carbon Dioxide 30 31 BUN < 2 L < 2 L Creatinine 0.68 0.70 Estimated GFR > 60 > 60 BUN/Creatinine Ratio 2.9 L 2.9 L Glucose 105 H 119 H Calcium 8.8 8.5 Phosphorus 3.0 3.8 Magnesium 1.6 1.6 Total Bilirubin 0.6 AST 60 H ALT 42 H Alkaline Phosphatase 68 Total Protein 5.8 L Albumin 3.5 Globulin 2.3 Albumin/Globulin Ratio 1.5 PFSH Medical History Panic disorder Trauma Anxiety and depression (~2014) Surgical History S/P H/O wisdom tooth extraction (~2014) Family History Father No problems noted. Mother Depression Grandfather Congestive heart failure History of open heart surgery Grandmother Congestive heart failure History of open heart surgery Grandfather No problems noted. 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 Quality VTE Deep Vein Thrombosis/Pulmonary Embolism Present on Admission: No
[2024-06-27] MEDS: POTASSIUM CHLORIDE 20 MEQ TAB 40 MEQ PO ×2 (09:05→15:17)
[2024-06-27] MEDS: MAGNESIUM CHLORIDE 64 MG TABLET 128 MG PO (12:03)
--- NOTE | 2024-06-27 13:09 | CM.DPC ---
DCP Cont. Reviewed EMR and team rounds for status updates. Met with pt to discuss her phone visit with [facility] in [place] this am. She shared that there is a 9-week waitlist for the [place] location, and was recommended to go to one of their other facilities in either [place] or [place]. She is unable to afford the air flight costs, and so is opting to get onto the [place] waitlist for now. Plan is to fax clinicals to [facility] in psych unit in [place], as that is where she just came from prior to her current admission here. Faxed clinicals. Will update pt once we hear a determination.
--- NOTE | 2024-06-27 14:54 | DIET.PN1 ---
Dietary Progress Note Assessment: Per RN, pt ate toast and some of eggs in morning and around 25% of lunch. Met with pt in room. Reports tolerating Ensure clear and drinking all of that at lunch. Discussed good protein sources and pt's best tolerated protein source which include eggs, the ensure clear, and chicken. Discussed menu options with chicken and encouraged protein intake. Pt open to doing Ensure clears 2-3x/d. Ht: 160.02 cm Wt: 68.5 kg BMI: 26.7 Last BM: 06/27/24 (06/27/24 08:10) MNA: 7 Parish Score: 20 Diet: 06/24/24 Dinner General (Regular) Diet Diet Modifications: Advance as tolerated patient has not eaten 8 days May Advance Diet as Tolerated: Yes Safety Tray needed?: No 06/27/24 Lunch General (Regular) Diet Diet Modifications: orange juice and tomato juice Safety Tray needed?: No Food Texture: Level 7 - Regular Liquid Consistency: Level 0 - Thin Nutrition Percent Meal Consumed 25% 06/26/24 18:00 Percent Meal Consumed 10 06/26/24 09:00 Percent Meal Consumed 50% 06/25/24 18:00 Labs: RBC 4.90 X10^6/uL (4.0-5.2) 06/25/24 04:46 Hgb 14.3 g/dL (12.0-16.0) 06/25/24 04:46 Hct 42.2 % (36-46) 06/25/24 04:46 Creatinine 0.70 mg/dL (0.52-1.04) 06/27/24 04:42 Electronically Signed by: Snow White 06/27/24 14:54 Clinical Dietitian [address] [address]
[2024-06-27 17:00] VITALS: BP 96/66; PULSE 113; RESP 16; TEMP 37.3; O2SAT 98
--- NOTE | 2024-06-27 17:39 | PC.NURSE ---
Day shift: This RN notified MD Rudd of decreased potassium this AM. This RN asked patient if she was purging or having diarrhea. Patient denied both. MD Rudd stated decreased potassium could be related to her admission diagnosis of ketosis. Replaced potassium orally today and plan to redraw labs tomorrow am. Patient ate approximately 25 percent of her meals today. Denies nausea. She also drank 2 ensure clears. She reports 1 moderate loose BM. Will continue to monitor.
[2024-06-27 18:29] LABS: Magnesium 1.5 mg/dL (1.6-2.3); Phosphorous 2.7 mg/dL (2.5-4.5)
[2024-06-27] MEDS: MIRTAZAPINE 15 MG TABLET PO (20:30)
[2024-06-27 21:00] VITALS: BP 96/69; PULSE 115; RESP 18; TEMP 37.2; O2SAT 99
[2024-06-28 02:00] VITALS: BP 93/63; PULSE 98; RESP 18; TEMP 37.2; O2SAT 97
[2024-06-28 06:26] LABS: Alanine Aminotransferase 62 IU/L (<35); Albumin 3.3 g/dL (3.5-5.0); Albumin Globulin Ratio 1.4 (1.0-2.8); Alkaline Phosphatase 64 U/L (38-126); Aspartate Aminotransferase 67 IU/L (14-36); Bilirubin Total 0.7 mg/dL (0.2-1.3); Calcium 8.5 mg/dL (8.4-10.2); Carbon Dioxide 29 mmol/L (22-32); Chloride 102 mmol/L (98-107); Estimated Glomerular Filt Rate > 60 mL/min (>60); Globulin 2.4 g/dL (1.7-4.1); Glucose 118 mg/dL (70-100); HEMOLYSIS 15 (0-50); Potassium 3.5 mmol/L (3.4-5.1); Sodium 136 mmol/L (137-145); Total Protein 5.7 g/dL (6.3-8.2)
[2024-06-28 06:28] LABS: BUN Creatinine Ratio 3.3 (6-22); Blood Urea Nitrogen < 2 mg/dL (7-17); Magnesium 1.5 mg/dL (1.6-2.3); Phosphorous 3.5 mg/dL (2.5-4.5)
--- NOTE | 2024-06-28 07:49 | P.DS_ITS ---
History of Present Illness History of Present Illness Date Patient Seen: 06/28/24 Chief complaint: Eating disorder, hasn't eaten in 8 days, suicidal Narrative: Chief complaint: Severe phobia of eating or drinking with starvation ketosis and dehydration History of present illness 29-year-old female has many years of severe phobia of eating and drinking particularly if somebody else of vomits and severe phobia of vomiting she has seen many therapists prescribed multiple things in the past that have tried the only thing that helped with her phobia of eating and drinking has been lorazepam in the past Patient's friend was ill with nausea and vomiting which caused her to be severely phobic and has not eaten or had anything to drink in the last 8 days. Patient sees a therapist In the emergency department patient was evaluated and found to have an anion gap acidosis notably ketones 7.8 bicarb of 9. Patient referred to the hospitalist service for admission for IV fluids and correction of ketosis acidosis with dextrose IV fluids and setting a diet along with lorazepam as needed for phobia of eating and drinking as the patient's survival may be threatened her phobia. Hospital course: Patient tolerated intravenous fluids slowly began to take more p.o. nutrition and hydration but still had significant phobia. Patient developed hypokalemia which is probably a result of the reversing metabolic acidosis mostly ketosis which required oral supplementation potassium was 3.5 at the time of discharge and patient was discharged on potassium supplement. Patient's disposition with dietary supplements Per care team coordinator scheduler: Met with pt to discuss her phone visit with the [facility] in [place] this am. She shared that there is a 9-week waitlist for the [place] location, and was recommended to go to one of their other facilities in either [place] or [place]. She is unable to afford the air flight costs, and so is opting to get onto the [place] waitlist for now. Plan is to fax clinicals to [facility] inpt psych unit in [place], as that is where she just came from prior to her current admission here. Faxed clinicals. Will update pt once we hear a determination. Review of systems: Specifically no fever or chills or systemic symptoms No chest pains or shortness a breath or cough No abdominal pain diarrhea constipation No urinary symptoms No paresthesia or paresis Physical exam: Remarkably calm focused and cogent young female new line HEENT unremarkable new line neck no JVD Heart and lungs clear new line abdomen nontender new line extremities no edema Assessment and plan: Very remarkable ketosis with anion gap perhaps starvation ketosis resolved. Patient is tolerating ensure Clear and is prescribed and potassium supplement Plan is to fax clinicals to [facility] in psych unit in [place], as that is where she just came from prior to her current admission here. Faxed clinicals. Will update pt once we hear a determination. 35 minutes of time was required evaluation of this patient 50% of the time was spent in the presence of the patient Discharge Providers Provider Date of admission: 06/24/24 17:41 Discharge Date: 06/28/24 Primary care physician: Deborah Acevedo MD Consults: 06/24/24 15:01 [place] [facility] [place] [facility] Stat Comment: [employer] [employer] Consult needed for:: Suicidal/homicidal ideat. Has no money Discharge provider: Sotero Rudd MD Exam Vital Signs (past 8 hours): - 06/28/24 02:00 Temperature 98.9 F Pulse Rate 98 H Respiratory Rate 18 Blood Pressure 93/63 Pulse Oximetry 97 Oxygen Flow Rate 0 Oxygen Delivery Method Room Air Oxygen Flow Rate 0 Objective Labs 06/25/24 04:46 06/28/24 06:00 Labs: Laboratory Results - last 24 hr 06/27/24 06/28/24 17:25 06:00 Sodium 136 L Potassium 3.5 Chloride 102 Carbon Dioxide 29 BUN < 2 L Creatinine 0.61 Estimated GFR > 60 BUN/Creatinine Ratio 3.3 L Glucose 118 H Calcium 8.5 Phosphorus 2.7 D 3.5 Magnesium 1.5 L 1.5 L Total Bilirubin 0.7 AST 67 H ALT 62 H Alkaline Phosphatase 64 Total Protein 5.7 L Albumin 3.3 L Globulin 2.4 Albumin/Globulin Ratio 1.4 PFSH Medical History Panic disorder Trauma Anxiety and depression (~2014) Surgical History S/P H/O wisdom tooth extraction (~2014) Family History Father No problems noted. Mother Depression Grandfather Congestive heart failure History of open heart surgery Grandmother Congestive heart failure History of open heart surgery Grandfather No problems noted. Grandmother Emphysema lung Smoker Sister Bipolar 2 disorder Family/Other Depression Social History marital status: unmarried,living together household members: none pets and animals: Yes (kitten in the home : aware) education level: vocational occupational status: unemployed current occupational exposures/hazards: No Previous occupational history: [employer] special dulce maria needs: No Smoking Status: Current every day smoker second hand exposure: No alcohol intake: former substance use type: does not use Discharge Plan Discharge Plan Patient Disposition: Home Discharge orders & Medications Prescriptions: New dronabinol 2.5 mg Capsule 2.5 mg PO TID Qty: 60 0RF lorazepam 1 mg Tablet 1 mg PO Q6HR PRN (Reason: Nausea) Qty: 30 0RF Continued Mirena 21 mcg/24 hours (8 yrs) 52 mg intrauterine device See Rx Instructions .ROUTE .COMPLEX Rx Instructions: replace as directed mirtazapine 15 mg tablet 30 mg PO DAILY Qty: 60 3RF Patient Comments: Patient states she hasn't been able to take in 2-3 weeks due to illness. duloxetine 20 mg capsule,delayed release(DR/EC) 20 mg PO DAILY Qty: 90 3RF Patient Comments: Patient states she hasn't been able to take for 2-3 weeks due to illness. Follow up/Referrals: Deborah Acevedo MD [Primary Care Provider] - Visit Report/Discharge Packet Stand Alone Forms: Patient Portal/API, Stroke Signs & Symptoms Discharge Data Primary Care Provider: Deborah Acevedo Quality VTE Deep Vein Thrombosis/Pulmonary Embolism Present on Admission: No
[2024-06-28 08:50] VITALS: BP 93/61; PULSE 99; RESP 15; TEMP 36.7; O2SAT 96
[2024-06-28] MEDS: POTASSIUM CHLORIDE 20 MEQ TAB PO (09:00)
[2024-06-28] MEDS: DULOXETINE 20 MG CAPSULE PO (09:23)
[2024-06-28] MEDS: droNABinol 2.5 MG CAPSULE PO (09:23)
[2024-06-28] MEDS: THIAMINE 100 MG TABLET PO (09:23)
[2024-06-28] MEDS: MAGNESIUM CHLORIDE 64 MG TABLET 128 MG PO (10:45)
--- NOTE | 2024-06-28 10:51 | DIET.PN1 ---
Dietary Progress Note Assessment: f/u with pt and family member Tolerating Ensure clears and doing about 25% PO intakes. Per rounds, plan to d/c home on wait list for [facility] today. Discussed tolerated options for maintaining adequate PO intakes while home including Ensure clears, eggs and chicken, mashed potatoes, salads, option of unflavored protein powder mixed into drinks as needed if unable to tolerate chicken/eggs. d/cing today, f/u PRN Ht: 160.02 cm Wt: 68.5 kg BMI: 26.7 Last BM: 06/27/24 (06/27/24 08:10) MNA: 7 Parish Score: 20 Diet: 06/28/24 Lunch General (Regular) Diet Diet Modifications: Ensure clear 4 cans a day Safety Tray needed?: No Food Texture: Level 7 - Regular Liquid Consistency: Level 0 - Thin Nutrition Percent Meal Consumed 25% 06/27/24 18:00 Percent Meal Consumed 25% 06/26/24 18:00 Labs: RBC 4.90 X10^6/uL (4.0-5.2) 06/25/24 04:46 Hgb 14.3 g/dL (12.0-16.0) 06/25/24 04:46 Hct 42.2 % (36-46) 06/25/24 04:46 Creatinine 0.61 mg/dL (0.52-1.04) 06/28/24 06:00 Electronically Signed by: Snow White 06/28/24 10:51 Clinical Dietitian [address] [address]
--- NOTE | 2024-06-28 11:29 | CM.DPC ---
DCP Cont. Reviewed EMR and team rounds for status updates. Pt has been medically cleared for home d/c. [facility] declined her placement. She is on the waitlist to get into inpt tx at the [facility] on the [facility], her mother is helping her to facilitate this. Left a detailed message with TCM re: need for expedited referral to Behavioral Health to be seen by Dr. Mendoza, requested for Dr. Nichols to please put in a workload request to him explaining the need for expedited eval/intake visit. Mom will plan to have pt with her during the initial days following d/c. She's discharging with 20-days of lorazapam, and encouraged to continue her antidepressant, Ensure Clear, and PO food as tolerated. Her mother will transport her back home. No further CM d/c needs identified at this time.
--- NOTE | 2024-06-28 12:57 | PC.NURSE ---
Patient is A&OX4, VSS, afebrile on RA. She denies pain, n/v, dizziness, or weakness. She is evaluated by MD at bedside and cleared for discharge today. MANFRED Padgett at bedside providing resources for patient.She is able to stay for lunch and receives referral for MD. Jeane (omi) expedited. Mother at bedside supportive. Patient and mother verbalize agreement and understanding of discharge plan, medications, referral and follow up with PCP. She is escorted to main entrance to private vehicle today at approximately 1 pm for discharge home with mother at approximately 1 p.m.
--- NOTE | 2024-06-28 18:28 | PM.CALLCOV.1 ---
Call Coverage Note Note Date of Patient Contact: 06/28/24 Narrative of Care Provided: Patient has had significant weight loss and severe protein calorie malnutrition
== END 2024-06-28 12:50 | disposition home or self-care (01) | DRG 423 ==
LOC: ED 17:25 → AC 17:41
PROVIDERS: Internal Medicine; Admitting Provider Internal Medicine; Emergency Provider Emergency Medicine; PCP Student in an Organized Health Care Education/Training Program; Referring Provider Emergency Medicine; Visit Provider Internal Medicine
DX: E88.89 Other specified metabolic disorders (principal); E87.20 Acidosis, unspecified; E86.0 Dehydration; T73.0XXA Starvation, initial encounter; E43 Unspecified severe protein-calorie malnutrition; E87.6 Hypokalemia; F41.9 Anxiety disorder, unspecified; F50.89 Other specified eating disorder; F40.8 Other phobic anxiety disorders; X58.XXXA Exposure to other specified factors, initial encounter; Z68.26 Body mass index [BMI] 26.0-26.9, adult
CPT/HCPCS: 36415; 71045; 80048; 80053; 80305; 80320; 80329; 81001; 81003; 81025; 82009; 82962; 83735; 84100; 84439; 84443; 85025; 96361; 96365; 99285; 99291; G0480; J7121

== ENCOUNTER → 2024-07-03 09:31 | Outpatient (CLI) | payer OTHER, SELFPAY ==
[2024-06-24 20:44] VITALS: BMI 26.7
[2024-07-03 11:34] LABS: BUN Creatinine Ratio 11.1 (6-22); Blood Urea Nitrogen 8 mg/dL (7-17); Calcium 8.6 mg/dL (8.4-10.2); Carbon Dioxide 27 mmol/L (22-32); Chloride 105 mmol/L (98-107); Estimated Glomerular Filt Rate > 60 mL/min (>60); Glucose 90 mg/dL (70-100); HEMOLYSIS < 15 (0-50); Magnesium 2.2 mg/dL (1.6-2.3); Phosphorous 3.2 mg/dL (2.5-4.5); Sodium 141 mmol/L (137-145)
== END ==
PROVIDERS: PCP Student in an Organized Health Care Education/Training Program; Referring Provider Student in an Organized Health Care Education/Training Program; Visit Provider Student in an Organized Health Care Education/Training Program
DX: F50.82 Avoidant/restrictive food intake disorder (principal)
CPT/HCPCS: 36415; 80048; 83735; 84100

== ENCOUNTER → 2024-07-10 14:48 | Outpatient (CLI) | payer OTHER, SELFPAY ==
[2024-06-24 20:44] VITALS: BMI 26.7
[2024-07-10 16:14] LABS: BUN Creatinine Ratio 13.2 (6-22); Blood Urea Nitrogen 9 mg/dL (7-17); Calcium 9.2 mg/dL (8.4-10.2); Carbon Dioxide 24 mmol/L (22-32); Chloride 104 mmol/L (98-107); Estimated Glomerular Filt Rate > 60 mL/min (>60); Glucose 97 mg/dL (70-99); HEMOLYSIS 36 (0-50); Magnesium 2.1 mg/dL (1.6-2.3); Phosphorous 3.1 mg/dL (2.5-4.5); Potassium 4.2 mmol/L (3.4-5.1); Sodium 137 mmol/L (137-145)
== END ==
PROVIDERS: PCP Student in an Organized Health Care Education/Training Program; Referring Provider Student in an Organized Health Care Education/Training Program; Visit Provider Student in an Organized Health Care Education/Training Program
DX: F50.82 Avoidant/restrictive food intake disorder (principal)
CPT/HCPCS: 36415; 80048; 83735; 84100

== ENCOUNTER → 2024-07-24 14:18 | Outpatient (CLI) | payer OTHER, SELFPAY ==
[2024-06-24 20:44] VITALS: BMI 26.7
[2024-07-24 15:42] LABS: BUN Creatinine Ratio 10.4 (6-22); Blood Urea Nitrogen 7 mg/dL (7-17); Calcium 9.2 mg/dL (8.4-10.2); Carbon Dioxide 24 mmol/L (22-32); Chloride 105 mmol/L (98-107); Estimated Glomerular Filt Rate > 60 mL/min (>60); Glucose 103 mg/dL (70-99); HEMOLYSIS < 15 (0-50); Phosphorous 3.5 mg/dL (2.5-4.5); Potassium 3.9 mmol/L (3.4-5.1); Sodium 138 mmol/L (137-145)
== END ==
PROVIDERS: PCP Student in an Organized Health Care Education/Training Program; Referring Provider Student in an Organized Health Care Education/Training Program; Visit Provider Student in an Organized Health Care Education/Training Program
DX: F50.82 Avoidant/restrictive food intake disorder (principal)
CPT/HCPCS: 36415; 80048; 83735; 84100